=== PATIENT | male | born 1945 | race Caucasian/White ===

== ENCOUNTER 2020-08-15 10:48 | Emergency (ER) | payer MEDICARE, SELFPAY ==
[2020-08-15] VITALS (42 sets, daily range): BP systolic 157–207; BP diastolic 79–103; PULSE 35–68; RESP 11–24; TEMP 36.4; O2SAT 96–100; BMI 24.3
--- NOTE | 2020-08-15 11:20 | XR_ITS ---
WS: [id number] PORTABLE CHEST HISTORY: chest pain COMPARISON: None available. Lungs are clear and well expanded. No pleural effusion or pneumothorax. Cardiac size: Mildly enlarged cardiac silhouette. Mediastinum/Aorta: Mildly ectatic aorta. No osseous abnormality seen. XR/XR chest 1V portable [id number] IMPRESSION: Unremarkable portable chest.
--- NOTE | 2020-08-15 11:20 | ECG_ITS ---
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
[2020-08-15 11:35] LABS: Basophils # 0.1 10^3/uL (0.0-0.1); Basophils % 0.8 %; Eosinophils # 0.2 10^3/uL (0.0-0.8); Hematocrit 42.6 % (42.0-52.0); Hemoglobin 13.8 g/dL (11.7-16.6); Lymphocytes # 2.2 10^3/uL (0.8-4.8); Lymphocytes % 29.4 %; Mean Corpuscular HGB Conc 32.4 g/dL (30.0-36.0); Mean Corpuscular Hemoglobin 30.5 pg (28.0-34.0); Mean Corpuscular Volume 94.2 fL (80-94); Mean Platelet Volume 9.8 fL (7.4-10.4); Monocytes # 0.6 10^3/uL (0.2-0.9); Monocytes % 7.6 %; Neutrophils # 4.37 10^3/uL (1.8-7.7); Neutrophils % 59.1 %; Nucleated Red Blood Cells % 0 %; Platelet Count 271 10^3/cmm (130-400); Red Blood Count 4.52 10^6/uL (4.1-5.3); Red Cell Distribution Width 12.9 % (12.1-15.1); White Blood Count 7.4 10^3/uL (4.0-10.0)
[2020-08-15 11:44] LABS: INR 0.96 (0.8-1.2)
[2020-08-15 11:53] LABS: Troponin(5th) Baseline 22 ng/L (0-15)
[2020-08-15 12:00] LABS: Alanine Aminotransferase 21 U/L (0-41); Albumin Level 4.4 g/dL (3.5-5.2); Alkaline Phosphatase 76 IU/L (40-130); Anion Gap 15.4 (5-19); Aspartate Amino Transferase 18 U/L (0-40); Blood Urea Nitrogen 16 mg/dL (8-23); Calcium 9.4 mg/dL (8.5-10.5); Carbon Dioxide 25 mmol/L (22-29); Chloride 106 mmol/L (98-107); Globulin 2.6 g/dL (1.3-4.6); Glucose 110 mg/dL (65-115); Magnesium 2.3 mg/dL (1.7-2.3); NT Pro B Type Natriuretic Pept 204 pg/mL (0-450); Osmolality Calculated 296 mOsm/kg (285-295); Potassium 4.4 mmol/L (3.5-5.1); Sodium 142 mmol/L (136-145); Total Bilirubin 0.4 mg/dL (0.15-1.2)
[2020-08-15 12:11] LABS: Add Urine Microscopic? NO
[2020-08-15 12:23] LABS: Blood Urine Neg (Negative); Glucose Urine UA Norm (Normal); Ketones Urine Negative (Negative); Nitrate Urine Negative (Negative); Protein Urine Neg (Negative); Urine Appearance Clear (CLEAR); Urine Color Yellow (Yellow); pH Urine 5 (5-7)
[2020-08-15 12:24] LABS: Bilirubin Urine Neg (Negative); Leukocyte Esterase Urine Negative (Negative); Urobilinogen Urine Norm (Negative)
--- NOTE | 2020-08-15 13:20 | ECG_ITS ---
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: : 1945 Requested By: Herlinda Srinivasan Order Number: [id number] Reading MD: SARA HOPE Measurements Intervals [place] Rate: 52 P: [place]: -1 QRS: -33 QRSD: 152 T: 119 QT: 503 QTc: 469 Interpretive Statements SINUS BRADYCARDIA WITH 2ND DEGREE AV BLOCK, 2:1 OR MOBITZ TYPE II LEFT AXIS DEVIATION [QRS AXIS < -30] LEFT BUNDLE BRANCH BLOCK [120+ ms QRS DURATION, 80+ ms Q/S IN V1/V2, 85+ ms R IN I/aVL/V5/V6] CRITICAL TEST RESULT No previous ECG available for comparison Electronically Signed On 08-15-2020 18:21:54 CDT by SARA HOPE [id number]
[2020-08-15 13:58] LABS: Troponin 5 2HR 17.31 ng/L (0-15); Troponin 5 2HR Delta -4.69 ABS# (0-10)
--- NOTE | 2020-08-15 14:11 | ED_ITS ---
HPI - Chest Pain General: Chief Complaint: Chest Pain Stated Complaint: LOW HR///30'S Time Seen by Provider: 08/15/20 11:17 History of Present Illness: HPI narrative: This patient is a very pleasant 75-year-old gentleman who presents today with lightheadedness and shortness of breath for a week. He also has had some chest pain off and on. He has no prior cardiac history. He takes lisinopril for blood pressure and is otherwise quite healthy. He is pretty active outdoors. He went and saw his PCP today for a blood pressure medicine refill and mention the shortness of breath. They noted significant bradycardia which worsened with exertion. His heart rate was as low as 30 in the office. He was sent to the ER for further evaluation. In the ER he is awake and alert, joking around. He denies any pain but does say feels a little tight in his chest. He is not short of breath when sitting in the bed. He has not been sick with cough, cold, fever. He has no loss of taste or smell. He has not had any Covid exposures that he knows of. He has had 1 prior syncopal episode about 12 years ago. He was evaluated at that time and no cause was found. 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 He had a 9-hour surgery at [place] which included intraperitoneal intraoperative chemotherapy. He was told that it was not likely to recur and he did not have any further treatment. MD complaint: chest heaviness and other (Shortness of breath, lightheadedness with exertion) Onset (ago): week(s) Timing of current episode: episodic Prior episodes: Yes Onset: during exertion Pain location: left chest Pain radiation: none Quality: tightness and heaviness Exacerbating factors: exertion Associated symptoms: Reports dyspnea and syncope (Near syncope); Deny abdominal pain, fever(s), nausea or vomiting Review of Systems General: Reports: 10 or more systems reviewed and unremarkable except in HPI and below Const: Reports: fatigue and malaise; Denies: fever(s) or chills Eyes: Denies: change in vision ENMT: Denies: odynophagia Card: Reports: syncope (Near syncope) Resp: Reports: dyspnea GI: Denies: abdominal pain, nausea or vomiting : Denies: flank pain Musc: Denies: neck pain or back pain Skin/Breast: Denies: rash Neuro: Denies: headache(s), numbness in extremities or weakness in extremities Willis/Lymph: Denies: easy bruising or easy bleeding PFS ED PFSH: Medical History Essential hypertension Social History Smoking and tobacco status: never smoked Alcohol intake: never Adopted: No Caregiver/support person: No Lives independently: No Household members: spouse Marital status: History of recent travel: No Sexually active: Yes Current gender identity: Male Physical Exam Const: COMMON NORMALS: no acute distress, patient oriented x3, no limitations and alert GENERAL APPEARANCE: cooperative and comfortable HENMT: HEAD & SCALP: normal to inspection FACE & SINUS: normal facial exam Eye: GENERAL EYE: appearance normal, both eyes and all related structures Neck/C-Spine: COMMON NORMALS: supple, no meningeal signs and no JVD Chest: COMMONS NORMALS: normal inspection of the chest Resp: COMMON NORMALS: normal respiratory effort, No use of accessory muscles and clear to auscultation bilaterally AUSCULTATION: clear to auscultation bilaterally Cardio: COMMON NORMALS: no JVD and No murmurs present (Cardio) RATE: bradycardic RHYTHM: abnormal rhythm GI: COMMON NORMALS: Normal to inspection, nondistended, normoactive bowel sounds present, Soft to palpation and non-tender INSPECTION: Yes normal to inspection (Large laparotomy scar well-healed) AUSCULTATION: Yes normoactive bowel sounds PALPATION: Yes Soft to palpation Back/Pelvis: COMMON NORMALS: thoracic and lumbar spine normal to inspection Extremity: COMMON NORMALS: normal to inspection Neuro: COMMON NORMALS: patient oriented x3, moves all extremities, no focal motor deficits and no sensory deficits noted SENSORIUM/ORIENTATION: Yes alert MENINGEAL SIGNS: Yes no meningeal signs Psych: COMMON NORMALS: mental status grossly normal, cooperative and normal affect Skin: COMMON NORMALS: no rashes or lesions noted and turgor normal GENERAL SKIN EXAM: no rashes or lesions noted and turgor normal Course ED course: This patient was fairly asymptomatic in the ER but did have some significant pauses on his monitor as well as several episodes of his heart rate getting down into the 30s. I was talking with him at the time of 1 of these episodes of bradycardia and he seemed completely unaffected by it. It was a brief episode and within a minute had gotten back up to 60. I spoke with Dr. Bingham here and he agreed with further evaluation, however we do not have a bed to admit the patient into. He is okay with going to [place] and prefers [facility]. I am waiting to speak to a doctor there but it sounds like they will have a bed for him. His labs are unremarkable. His troponin is negative. His first EKG showed a first-degree AV block. His second EKG was more concerning for possible second-degree AV block. He has quite a wide complex and a bundle branch block which is not known whether it is new or not. Reevaluation(s): Reevaluation #1: Patient continues to feel okay as long as he sitting in the bed. I spoke with the nurse practitioner for Dr. Edwards at [facility] in [place] and they have accepted the patient for transfer there. Reevaluation #2: Patient is still waiting for a bed at [facility] and transportation. He remains in unchanged condition and in good spirits. Vital Signs: Vital signs: Vital Signs Temperature 97.6 F 08/15/20 11:06 Pulse Rate 64 08/15/20 17:20 Respiratory Rate 19 H 08/15/20 17:20 Blood Pressure 187/96 08/15/20 17:20 Pulse Oximetry 99 08/15/20 17:20 MDM - Chest Pain Lab Data: Labs: Lab Results 08/15/20 08/15/20 08/15/20 Range/Units 11:15 11:15 11:15 WBC 7.4 (4.0-10.0) 10^3/ uL RBC 4.52 (4.1-5.3) 10^6/u L Hgb 13.8 (11.7-16.6) g/dL Hct 42.6 (42.0-52.0) % MCV 94.2 H (80-94) fL MCH 30.5 (28.0-34.0) pg MCHC 32.4 (30.0-36.0) g/dL RDW 12.9 (12.1-15.1) % Plt Count 271 (130-400) 10^3/c mm MPV 9.8 (7.4-10.4) fL Neut % (Auto) 59.1 % Lymph % (Auto) 29.4 % [place] % (Auto) 7.6 % Eos % (Auto) 3.0 % Baso % (Auto) 0.8 % Neut # (Auto) 4.37 (1.8-7.7) 10^3/u L Lymph # (Auto) 2.2 (0.8-4.8) 10^3/u L [place] # (Auto) 0.6 (0.2-0.9) 10^3/u L Eos # (Auto) 0.2 (0.0-0.8) 10^3/u L Baso # (Auto) 0.1 (0.0-0.1) 10^3/u L Nucleated RBC % (a uto) 0 % Nucleated RBCs # 0.0 /100WBC PT (12.1-14.9) SECO NDS INR (0.8-1.2) Sodium 142 (136-145) mmol/L Potassium 4.4 (3.5-5.1) mmol/L Chloride 106 (98-107) mmol/L Carbon Dioxide 25 (22-29) mmol/L Anion Gap 15.4 (5-19) BUN 16 (8-23) mg/dL Creatinine 1.0 (0.7-1.2) mg/dL GFR Calculation Not Reportable Glucose 110 (65-115) mg/dL Calculated Osmolal ity 296 H (285-295) mOsm/k g Calcium 9.4 (8.5-10.5) mg/dL Magnesium 2.3 (1.7-2.3) mg/dL Total Bilirubin 0.4 (0.15-1.2) mg/dL AST 18 (0-40) U/L ALT 21 (0-41) U/L Alkaline Phosphata se 76 (40-130) IU/L Troponin T Baselin e 22 H (0-15) ng/L Troponin T 120 Min [place] (0-15) ng/L Delta Troponin T (0-10) ABS# NT-Pro-B Natriuret Pep 204 (0-450) pg/mL Total Protein 7.0 (6.6-8.7) g/dL Albumin 4.4 (3.5-5.2) g/dL Globulin 2.6 (1.3-4.6) g/dL Urine Color (Yellow) Urine Appearance (CLEAR) Urine pH (5-7) Ur Specific Gravit y (1.005-1.030) Urine Protein (Negative) Urine Glucose (UA) (Normal) Urine Ketones (Negative) Urine Blood (Negative) Urine Nitrate (Negative) Urine Bilirubin (Negative) Urine Urobilinogen (Negative) mg/dL Ur Leukocyte Leatha ase (Negative) 08/15/20 08/15/20 08/15/20 Range/Units 11:15 11:58 13:20 WBC (4.0-10.0) 10^3/ uL RBC (4.1-5.3) 10^6/u L Hgb (11.7-16.6) g/dL Hct (42.0-52.0) % MCV (80-94) fL MCH (28.0-34.0) pg MCHC (30.0-36.0) g/dL RDW (12.1-15.1) % Plt Count (130-400) 10^3/c mm MPV (7.4-10.4) fL Neut % (Auto) % Lymph % (Auto) % [place] % (Auto) % Eos % (Auto) % Baso % (Auto) % Neut # (Auto) (1.8-7.7) 10^3/u L Lymph # (Auto) (0.8-4.8) 10^3/u L [place] # (Auto) (0.2-0.9) 10^3/u L Eos # (Auto) (0.0-0.8) 10^3/u L Baso # (Auto) (0.0-0.1) 10^3/u L Nucleated RBC % (a uto) % Nucleated RBCs # /100WBC PT 13.10 (12.1-14.9) SECO NDS INR 0.96 (0.8-1.2) Sodium (136-145) mmol/L Potassium (3.5-5.1) mmol/L Chloride (98-107) mmol/L Carbon Dioxide (22-29) mmol/L Anion Gap (5-19) BUN (8-23) mg/dL Creatinine (0.7-1.2) mg/dL GFR Calculation Glucose (65-115) mg/dL Calculated Osmolal ity (285-295) mOsm/k g Calcium (8.5-10.5) mg/dL Magnesium (1.7-2.3) mg/dL Total Bilirubin (0.15-1.2) mg/dL AST (0-40) U/L ALT (0-41) U/L Alkaline Phosphata se (40-130) IU/L Troponin T Baselin e (0-15) ng/L Troponin T 120 Min [place] 17.31 H (0-15) ng/L Delta Troponin T -4.69 L (0-10) ABS# NT-Pro-B Natriuret Pep (0-450) pg/mL Total Protein (6.6-8.7) g/dL Albumin (3.5-5.2) g/dL Globulin (1.3-4.6) g/dL Urine Color Yellow (Yellow) Urine Appearance Clear (CLEAR) Urine pH 5 (5-7) Ur Specific Gravit y 1.010 (1.005-1.030) Urine Protein Neg (Negative) Urine Glucose (UA) Norm (Normal) Urine Ketones Negative (Negative) Urine Blood Neg (Negative) Urine Nitrate Negative (Negative) Urine Bilirubin Neg (Negative) Urine Urobilinogen Norm (Negative) mg/dL Ur Leukocyte Leatha ase Negative (Negative) Discharge Plan Discharge Patient Disposition: Xfer Short-Term Hosp Clinical Impression: Bradycardia, Heart block bundle branch, Atrioventricular block, second degree Condition: Stable Referrals: Jaguar Reynolds FNP [Primary Care Provider] - Coding Level of Care Code ED Milk Bottler for Chg Fwd Exam Comprehensive
--- NOTE | 2020-08-15 17:20 | ECG_ITS ---
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
== END 2020-08-15 18:10 | disposition short-term general hospital (02) ==
PROVIDERS: Emergency Provider Emergency Medicine; Family Provider Nurse Practitioner Family; PCP Nurse Practitioner Family
DX: I44.1 Atrioventricular block, second degree (principal); R00.1 Bradycardia, unspecified; I10 Essential (primary) hypertension
CPT/HCPCS: 12345; 71045; 80053; 81003; 83735; 83880; 84484; 85025; 85610; 93005; 99284

== ENCOUNTER → 2020-09-02 11:24 | Outpatient (BNVA) | payer MEDICARE, SELFPAY | PROVIDERS: Family Provider Nurse Practitioner Family; PCP Nurse Practitioner Family; Visit Provider Registered Nurse | DX: T81.41XA Infection following a procedure, superficial incisional surgical site, initial encounter (principal); I10 Essential (primary) hypertension | CPT/HCPCS: 87070 ==

== ENCOUNTER → 2021-03-26 00:01 | Outpatient (BNVA) | payer MEDICARE, SELFPAY | PROVIDERS: Family Provider Nurse Practitioner Family; PCP Nurse Practitioner Family; Visit Provider Registered Nurse | DX: I44.7 Left bundle-branch block, unspecified (principal); I45.4 Nonspecific intraventricular block; I25.10 Atherosclerotic heart disease of native coronary artery without angina pectoris; I50.30 Unspecified diastolic (congestive) heart failure; Z95.0 Presence of cardiac pacemaker; Z95.1 Presence of aortocoronary bypass graft; I10 Essential (primary) hypertension; R00.1 Bradycardia, unspecified | CPT/HCPCS: 80048; 83735; 83880; 85025 ==

== ENCOUNTER → 2021-05-18 08:54 | Outpatient (BNVA) | payer MEDICARE, SELFPAY | PROVIDERS: Family Provider Nurse Practitioner Family; PCP Registered Nurse; Visit Provider Registered Nurse | DX: K21.9 Gastro-esophageal reflux disease without esophagitis (principal); G47.00 Insomnia, unspecified; E78.5 Hyperlipidemia, unspecified; I50.9 Heart failure, unspecified | CPT/HCPCS: 80061; 83880 ==

== ENCOUNTER → 2021-09-09 00:01 | Outpatient (BNVA) | payer MEDICARE, SELFPAY | PROVIDERS: Family Provider Nurse Practitioner Family; PCP Registered Nurse; Visit Provider Registered Nurse | DX: I10 Essential (primary) hypertension (principal); E78.5 Hyperlipidemia, unspecified; I50.9 Heart failure, unspecified; Z95.1 Presence of aortocoronary bypass graft | CPT/HCPCS: 80053; 80061; 83880; 85025 ==

== ENCOUNTER → 2022-01-27 13:13 | Outpatient (BNVA) | payer MEDICARE, SELFPAY | PROVIDERS: Family Provider Nurse Practitioner Family; PCP Registered Nurse; Visit Provider Internal Medicine | DX: I11.0 Hypertensive heart disease with heart failure (principal); I50.9 Heart failure, unspecified; Z95.0 Presence of cardiac pacemaker; Z95.1 Presence of aortocoronary bypass graft; I44.7 Left bundle-branch block, unspecified; Z87.891 Personal history of nicotine dependence; Z79.82 Long term (current) use of aspirin | CPT/HCPCS: 99204 ==

== ENCOUNTER → 2022-04-21 15:02 | Outpatient (BNVA) | payer MEDICARE, SELFPAY | PROVIDERS: PCP Registered Nurse; Visit Provider Internal Medicine | DX: I11.0 Hypertensive heart disease with heart failure (principal); I50.9 Heart failure, unspecified; Z95.0 Presence of cardiac pacemaker; Z95.1 Presence of aortocoronary bypass graft; I44.7 Left bundle-branch block, unspecified; Z87.891 Personal history of nicotine dependence | CPT/HCPCS: 99213; 99214 ==

== ENCOUNTER → 2022-04-29 13:02 | Outpatient (BNVA) | payer MEDICARE, SELFPAY | PROVIDERS: PCP Registered Nurse; Referring Provider Registered Nurse; Visit Provider Orthopaedic Surgery | DX: M47.22 Other spondylosis with radiculopathy, cervical region (principal) | CPT/HCPCS: 72040; 99203; 99204 ==

== ENCOUNTER → 2022-10-20 14:06 | Outpatient (BNVA) | payer MEDICARE, SELFPAY | PROVIDERS: PCP Registered Nurse; Visit Provider Internal Medicine | DX: I11.0 Hypertensive heart disease with heart failure (principal); I50.9 Heart failure, unspecified; Z95.0 Presence of cardiac pacemaker; Z95.1 Presence of aortocoronary bypass graft; I44.7 Left bundle-branch block, unspecified; Z87.891 Personal history of nicotine dependence | CPT/HCPCS: 99214 ==

== ENCOUNTER → 2022-11-04 11:20 | Outpatient (BNVA) | payer MEDICARE, SELFPAY | PROVIDERS: PCP Registered Nurse; Visit Provider Nurse Practitioner Family | DX: I10 Essential (primary) hypertension (principal) | CPT/HCPCS: 80053; 85025 ==

== ENCOUNTER → 2023-06-16 13:59 | Outpatient (BNVA) | payer MEDICARE, SELFPAY | PROVIDERS: PCP Registered Nurse; Visit Provider Internal Medicine | DX: Z95.0 Presence of cardiac pacemaker (principal); I11.0 Hypertensive heart disease with heart failure; I50.9 Heart failure, unspecified; Z95.1 Presence of aortocoronary bypass graft; I44.7 Left bundle-branch block, unspecified; Z87.891 Personal history of nicotine dependence | CPT/HCPCS: 99214 ==

== ENCOUNTER → 2023-12-15 13:48 | Outpatient (BNVA) | payer MEDICARE, SELFPAY | PROVIDERS: PCP Registered Nurse; Visit Provider Internal Medicine | DX: Z95.0 Presence of cardiac pacemaker (principal); I11.0 Hypertensive heart disease with heart failure; I50.9 Heart failure, unspecified; Z95.1 Presence of aortocoronary bypass graft; I44.7 Left bundle-branch block, unspecified; Z87.891 Personal history of nicotine dependence | CPT/HCPCS: 99214 ==

== ENCOUNTER 2024-02-06 12:08 | Inpatient (IN) | payer MEDICARE, SELFPAY ==
[2024-02-06] VITALS (36 sets, daily range): BP systolic 139–186; BP diastolic 94–117; PULSE 70–103; RESP 6–31; TEMP 36.4; O2SAT 86–99; BMI 22.4; BMI 22.1
--- NOTE | 2024-02-06 12:14 | ECG_ITS ---
[facility] Test Date: 2024-02-06 Pat Name: Dar Ortega Department: Room: Gender: Male Test Preparer: : 1945 Requested By: Trish Mac Order Number: [id number] Kristina MD: Yoel Posadas M.D. Measurements Intervals [place] Rate: 110 P: 102 [place]: 259 QRS: -75 QRSD: 154 T: 106 QT: 383 QTc: 520 Interpretive Statements ELECTRONIC VENTRICULAR PACEMAKER ABNORMAL RHYTHM ECG INTERPRETATION BASED ON A DEFAULT AGE OF 40 YEARS Compared to ECG 08/15/2020 13:39:41 Sinus bradycardia no longer present Left-axis deviation no longer present Left bundle-branch block no longer present Electronically Signed On 02-06-2024 15:04:36 CDT by Yoel Posadas M.D. [id number]
--- NOTE | 2024-02-06 12:14 | XRR_ITS ---
PROCEDURE INFORMATION: Exam: XR Chest Exam date and time: 02/06/2024 12:26 PM Age: 78 years old Clinical indication: Pain; Angina pectoris; Prior surgery; Surgery date: 6+ months; Surgery type: Pacer; Additional info: Chest pain TECHNIQUE: Imaging protocol: Radiologic exam of the chest. Views: 1 view. COMPARISON: CR XR chest 1V portable [id number] 08/15/2020 11:25 AM FINDINGS: Tubes, catheters and devices: New left pacemaker projecting in satisfactory position. Lungs: New atelectasis and/or pneumonitis right lower lung. Otherwise, unremarkable. Pleural spaces: New small right pleural effusion. No left pleural effusion or pneumothorax. Heart/Mediastinum: Increased moderate cardiomegaly. Otherwise, unremarkable mediastinal contours. Bones/joints: Unchanged mild and moderate multilevel spondylosis. Otherwise, unremarkable. Other findings: New surgical changes. XR/XR chest 1V portable [id number] IMPRESSION: 1. New atelectasis and/or pneumonitis right lower lung. 2. New small right pleural effusion. 3. Increased moderate cardiomegaly.
[2024-02-06 12:59] LABS: Basophils # 0.1 10^3/uL (0.0-0.1); Basophils % 0.9 %; Eosinophils # 0.1 10^3/uL (0.0-0.8); Eosinophils % 0.9 %; Hematocrit 53.6 % (37-53); Lymphocytes # 2.2 10^3/uL (0.8-4.8); Lymphocytes % 24.9 %; Mean Corpuscular HGB Conc 32.5 g/dL (30-55); Mean Corpuscular Volume 98.5 fl (82-101); Mean Platelet Volume 10.6 fL (7.4-10.4); Monocytes # 0.7 10^3/uL (0.2-0.9); Neutrophils # 5.82 10^3/uL (1.8-7.7); Neutrophils % 65.1 %; Nucleated Red Blood Cells % 0 %; Platelet Count 214 10^3/cmm (157-399); Red Blood Count 5.44 10^6/uL (3.85-5.65); Red Cell Distribution Width 15.7 % (12.1-15.1); White Blood Count 8.93 10^3/uL (3.29-11.43)
[2024-02-06 13:16] LABS: Troponin(5th) Baseline 33 ng/L (0-15)
--- NOTE | 2024-02-06 13:17 | W.ED.CHESTPA ---
HPI - Chest Pain General: Chief Complaint: Chest Pain Stated Complaint: chest pains, sob Time Seen by Provider: 02/06/24 13:01 Source: patient Mode of arrival: ambulatory History of Present Illness: 78-year-old male presents to the emergency room with complaint of chest pain. He has had it for about the last 3 to 4 days. He has not noticed anything that exacerbates or relieves it. He does have a known history of heart disease previously had bypass about 3 years ago. No diaphoresis with that he does get some shortness of breath with that as well. 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 a abdominal surgery with omental resection this was done a few years ago he is thought to be cancer free at this point MD complaint: chest pain Onset (ago): day(s) (3-4) Timing of current episode: episodic Pain location: left chest Pain radiation: none Severity: moderate Quality: heaviness Relieving factors: nothing Exacerbating factors: nothing Associated symptoms: Reports abdominal pain; Deny diaphoresis, dyspnea, fever(s), leg edema, nausea, palpitations, sense of impending doom, syncope or vomiting Treatment prior to arrival: none Review of Systems Const: Denies: fever(s), chills or diaphoresis Card: Reports: chest pain; Denies: palpitations, syncope, dyspnea on exertion or orthopnea Resp: Denies: dyspnea GI: Reports: abdominal pain; Denies: nausea or vomiting : Denies: dysuria, urinary frequency or urinary urgency Musc: Denies: neck pain or back pain Skin/Breast: Denies: rash PFSH ED PFSH: Medical History (Updated 02/06/24 @ 13:36 by Christian Turcios DO) Pseudomyxoma peritonei History of resection Hx of nephrolithotomy with removal of calculi History of pacemaker Essential hypertension Surgical History (Updated 02/06/24 @ 13:35 by Christian Turcios DO) S/P laparotomy Omental resection for pseudomyxoma peritonei History of back surgery History of hernia repair History of cervical sympathectomy History of coronary artery bypass graft x 3 History of open heart surgery Social History Smoking and tobacco/nicotine status: former use of tobacco/nicotine Alcohol intake: never Substance/Drug Use: never Adopted: No Caregiver/support person: No Lives independently: No Household members: spouse Marital status: Sexually active: Yes Do you think of yourself as: Straight/Heterosexual Current gender identity: Male Physical Exam Const: COMMON NORMALS: no acute distress GENERAL APPEARANCE: cooperative and comfortable ORIENTATION/CONSCIOUSNESS: Yes awake, Yes oriented to person, Yes oriented to place and Yes oriented to time HENMT: COMMON NORMALS: normocephalic, atraumatic and hearing grossly normal bilaterally HEAD & SCALP: normocephalic and atraumatic Resp: COMMON NORMALS: normal respiratory effort, No retractions, No use of accessory muscles and clear to auscultation bilaterally AUSCULTATION: clear to auscultation bilaterally Cardio: COMMON NORMALS: regular rate, regular rhythm and No murmurs present (Cardio) RATE: regular rate RHYTHM: regular rhythm GI: COMMON NORMALS: No hepatosplenomegaly present AUSCULTATION: Yes normoactive bowel sounds PALPATION: Yes Tenderness to palpation present (GI) (Periumbilical), No Guarding due to palpation present (GI) and Yes No hepatosplenomegaly present Extremity: COMMON NORMALS: normal to inspection, capillary refill normal, no clubbing, cyanosis or edema, no calf tenderness and no pedal edema Neuro: SENSORIUM/ORIENTATION: Yes oriented to person, Yes oriented to place and Yes oriented to time Skin: COMMON NORMALS: no rashes or lesions noted GENERAL SKIN EXAM: no rashes or lesions noted Course Vital Signs: Vital signs: Vital Signs Pulse Rate 89 02/06/24 18:03 Respiratory Rate 18 02/06/24 18:03 Blood Pressure 163/112 02/06/24 18:03 Pulse Oximetry 98 02/06/24 18:03 Oxygen Delivery Me thod Room Air 02/06/24 18:03 MDM - Chest Pain Medical Decision Making Cardiac enzymes negative. Patient is in a paced rhythm. His T. bili is elevated transaminases slightly elevated since he did have some abdominal pain on exam CT was done showed questionable cholecystitis ultrasound confirms discussed with Dr. Kumar will admit. Given his past medical history will admit to the hospitalist consult cardiology Medical Records I reviewed the patient's medical records. Lab Data I reviewed the patient's lab results. 02/06/24 12:52 02/06/24 12:52 Radiology Impressions Chest X-Ray 02/06/24 12:14 IMPRESSION: 1. New atelectasis and/or pneumonitis right lower lung. 2. New small right pleural effusion. 3. Increased moderate cardiomegaly. Gallbladder Ultrasound 02/06/24 15:38 IMPRESSION: 1. High suspicion of acute cholecystitis. 2. Right pleural effusion. Laboratory Results WBC 8.93 10^3/uL (3.29-11.43) 02/06/24 12:52 RBC 5.44 10^6/uL (3.85-5.65) 02/06/24 12:52 Hgb 17.40 g/dL (11.27-16.99) H 02/06/24 12:52 Hct 53.6 % (37-53) H 02/06/24 12:52 MCV 98.5 fl (82-101) 02/06/24 12:52 MCH 32.0 pg (27-33) 02/06/24 12:52 MCHC 32.5 g/dL (30-55) 02/06/24 12:52 RDW 15.7 % (12.1-15.1) H 02/06/24 12:52 Plt Count 214 10^3/cmm (157-399) 02/06/24 12:52 MPV 10.6 fL (7.4-10.4) H 02/06/24 12:52 Neut % (Auto) 65.1 % 02/06/24 12:52 Lymph % (Auto) 24.9 % 02/06/24 12:52 [place] % (Auto) 8.0 % 02/06/24 12:52 Eos % (Auto) 0.9 % 02/06/24 12:52 Baso % (Auto) 0.9 % 02/06/24 12:52 Neut # (Auto) 5.82 10^3/uL (1.8-7.7) 02/06/24 12:52 Lymph # (Auto) 2.2 10^3/uL (0.8-4.8) 02/06/24 12:52 [place] # (Auto) 0.7 10^3/uL (0.2-0.9) 02/06/24 12:52 Eos # (Auto) 0.1 10^3/uL (0.0-0.8) 02/06/24 12:52 Baso # (Auto) 0.1 10^3/uL (0.0-0.1) 02/06/24 12:52 Nucleated RBC % (auto) 0 % 02/06/24 12:52 Nucleated RBCs # 0.0 /100WBC 02/06/24 12:52 Sodium 141 mmol/L (136-145) 02/06/24 12:52 Potassium 4.0 mmol/L (3.5-5.1) 02/06/24 12:52 Chloride 100 mmol/L (98-107) 02/06/24 12:52 Carbon Dioxide 27 mmol/L (22-29) 02/06/24 12:52 Anion Gap 18.0 (5-19) 02/06/24 12:52 BUN 27 mg/dL (8-23) H 02/06/24 12:52 Creatinine 1.5 mg/dL (0.7-1.2) H 02/06/24 12:52 GFR Calculation Not Reportable 02/06/24 12:52 Glucose 96 mg/dL (65-115) 02/06/24 12:52 Calculated Osmolality 297 mOsm/kg (285-295) H 02/06/24 12:52 Calcium 10.0 mg/dL (8.5-10.5) 02/06/24 12:52 Total Bilirubin 1.6 mg/dL (0.15-1.2) H 02/06/24 12:52 AST 36 U/L (0-40) 02/06/24 12:52 ALT 23 U/L (0-41) 02/06/24 12:52 Alkaline Phosphatase 154 U/L (40-130) H 02/06/24 12:52 Troponin T Baseline 33 ng/L (0-15) H 02/06/24 12:52 Troponin T 120 Minute 34.16 ng/L (0-15) H 02/06/24 15:10 Delta Troponin T 1.16 ABS# (0-10) 02/06/24 15:10 NT-Pro-B Natriuret Pep 24962 pg/mL (0-450) H 02/06/24 12:52 Total Protein 7.5 g/dL (6.6-8.7) 02/06/24 12:52 Albumin 4.1 g/dL (3.5-5.2) 02/06/24 12:52 Globulin 3.4 g/dL (1.3-4.6) 02/06/24 12:52 All radiology interpretation(s) finalized by discharge Discharge Plan Discharge Admit Provider: Mani Agrawal Condition: Stable Prescriptions: No Action spironolactone 25 mg tablet 12.5 mg PO DAILY nitroglycerin 0.4 mg tablet, sublingual 0.4 mg sublingual Q5M PRN (Reason: chest pain) Qty: 20 0RF Rx Instructions: do not exceed 3 doses per episode tramadol 50 mg tablet 50 mg PO BID PRN (Reason: pain) 7 Days Qty: 14 0RF furosemide 40 mg tablet 20 mg PO DAILY PRN (Reason: Edema) trazodone 50 mg tablet 50 mg PO BEDTIME PRN (Reason: Sleep) metoprolol succinate 50 mg tablet extended release 24 hr 50 mg PO DAILY mirtazapine 15 mg tablet 15 mg PO DAILY tizanidine 4 mg capsule 4 mg PO DAILY Coding Level of Care Code ED Entry Level Sales Representative for Keyona Tamez
[2024-02-06 13:24] LABS: Alanine Aminotransferase 23 U/L (0-41); Albumin Level 4.1 g/dL (3.5-5.2); Alkaline Phosphatase 154 U/L (40-130); Aspartate Amino Transferase 36 U/L (0-40); Blood Urea Nitrogen 27 mg/dL (8-23); Carbon Dioxide 27 mmol/L (22-29); Chloride 100 mmol/L (98-107); Creatinine Clr Calc Pharmacy 43.7691; Globulin 3.4 g/dL (1.3-4.6); Glucose 96 mg/dL (65-115); NT Pro B Type Natriuretic Pept 11666 pg/mL (0-450); Osmolality Calculated 297 mOsm/kg (285-295); Sodium 141 mmol/L (136-145); Total Bilirubin 1.6 mg/dL (0.15-1.2); Total Protein 7.5 g/dL (6.6-8.7)
--- NOTE | 2024-02-06 13:36 | CT_ITS ---
WS: [id number] CT ABDOMEN AND PELVIS WITH CONTRAST HISTORY: abd pain, history of stomach cancer. TECHNIQUE: Imaging performed of the abdomen and pelvis with IV contrast. Single phase imaging of the abdomen. Coronal and sagittal reformats are submitted. All CT scans at [facility] use at [address] one of these dose optimization techniques: automated exposure control; mA and/or kV adjustment per patient size (includes targeted exams where dose is matched to clinical indication); or iterative re construction. IV CONTRAST: Omnipaque 350; 100 mL IV. Oral contrast: No DLP: 435.79 mGy.cm COMPARISON: None available. Lower thorax: 5 mm noncalcified nodule at the LEFT lung base. There is an additional 2 mm nodule LEFT lower lobe. Very small bilateral pleural effusions. Moderately enlarged heart. No hiatal hernia. Liver/biliary system: Tricuspid regurgitation into the hepatic veins. No liver masses identified. Gallbladder: Stones in the neck of the gallbladder. There is mild pericholecystic fluid and stranding . Gallbladder is not hydropic. Common bile duct is not dilated. Pancreas: Normal size pancreas and pancreatic duct. No adjacent inflammation. Spleen: Normal size spleen. No mass or infarct. Adrenal glands: Normal. Right kidney: Mild perinephric stranding. No obstruction. 11 mm cortical cyst mid kidney. Left kidney: Perinephric stranding with no obstruction. Mild cortical thinning. Aorta: Mild atherosclerosis with no aneurysm. Lymphadenopathy: None. Free fluid: There is some very mild mesenteric edema. Tiny amount of fluid along the paracolic gutte rs. GI tract: Normally distended stomach. No small bowel obstruction. Anastomotic sutures in the RIGHT co babatunde. Additional surgical anastomotic site in the sigmoid colon. Abdominal wall: Unremarkable abdominal wall. No hernia. Pelvis: Well-distended urinary bladder. No free fluid. Bones: Advanced facet joint arthritis in the lumbar spine. IMPRESSION: 1. Cholelithiasis with adjacent pericholecystic stranding. Nondilated gallbladder. No bile duct dila tation. Correlate for acute cholecystitis. 2. Tricuspid regurgitation into the hepatic veins. 3. Bilateral perinephric stranding with no obstruction. This may be chronic or related to acute pyel onephritis. 4. Small bilateral pleural effusions, RIGHT greater than LEFT. 5. Surgical anastomotic sutures in the colon are stable. 6. Small amount of ascites along the paracolic gutters.
[2024-02-06] MEDS: sodium chloride 0.9% 500 ML IV (13:54)
[2024-02-06] MEDS: iohexol 350 mg/mL 500 mL Btl (per mL) IV (14:06)
--- NOTE | 2024-02-06 14:14 | ECG_ITS ---
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 Measurements Intervals [place] Rate: 83 P: 0 ND: 0 QRS: -79 QRSD: 135 T: -48 QT: 409 QTc: 482 Interpretive Statements ATRIAL FIBRILLATION RIGHT BUNDLE BRANCH BLOCK [120+ ms QRS DURATION, UPRIGHT V1, 40+ ms S IN I/aVL/V4/V5/V6] LEFT ANTERIOR FASCICULAR BLOCK [QRS AXIS <= -45, QR IN I, RS IN II] MODERATE T-WAVE ABNORMALITY, CONSIDER LATERAL ISCHEMIA [-0.1+ mV T-WAVE IN I/aVL/V5/V6] Compared to ECG 02/06/2024 12:15:52 Right bundle-branch block now present Left anterior fascicular block now present T-wave abnormality now present Possible ischemia now present Ventricular-paced complex(es) or rhythm no longer present Electronically Signed On 02-06-2024 15:08:17 CDT by Yoel Posadas M.D. [id number]
[2024-02-06 15:35] LABS: Troponin 5 2HR 34.16 ng/L (0-15); Troponin 5 2HR Delta 1.16 ABS# (0-10)
--- NOTE | 2024-02-06 15:38 | USR_ITS ---
PROCEDURE INFORMATION: Exam: US Abdomen, Limited; Right Upper Quadrant Exam date and time: 02/06/2024 4:02 PM Age: 78 years old Clinical indication: Other: Labs; Additional info: Elevated t bili TECHNIQUE: Imaging protocol: Real time ultrasound of the abdomen with image documentation. Limited exam focused on the right upper quadrant. COMPARISON: CT abdomen pelvis w con* [id number] 02/06/2024 1:58 PM FINDINGS: Pleural spaces: Right pleural effusion. Liver: Normal. No masses. Gallbladder: Distended gallbladder with gallbladder wall thickening measuring 4 mm. Gallstones in the gallbladder. Acute cholecystitis should be suspected. Biliary ducts: Normal. No stones. No dilation. Pancreas: Visualized pancreas is unremarkable. Right kidney: Normal. No mass. No hydronephrosis. Aorta: Unremarkable abdominal aorta. Inferior vena cava: Unremarkable IVC. Portal venous: Normal hepatopetal flow in the portal vein. US/US gall bladder [id number] IMPRESSION: 1. High suspicion of acute cholecystitis. 2. Right pleural effusion.
[2024-02-06] MEDS: piperacillin-tazobactam 3.375 GM in sodium chloride 0.9% (plus) 50 ML IV (18:02)
--- NOTE | 2024-02-06 18:09 | ECG_ITS ---
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 Measurements Intervals [place] Rate: 83 P: 0 HI: 0 QRS: -75 QRSD: 156 T: 102 QT: 453 QTc: 534 Interpretive Statements ELECTRONIC VENTRICULAR PACEMAKER ABNORMAL RHYTHM ECG Compared to ECG 02/06/2024 14:15:57 Possible atrial fibrillation Right bundle-branch block no longer present Left anterior fascicular block no longer present T-wave abnormality no longer present Possible ischemia no longer present Electronically Signed On 02-07-2024 21:45:54 CDT by Yudith Redmond M.D. [id number]
--- NOTE | 2024-02-06 18:26 | USCV_ITS ---
Dar Ortega Age: 78 Gender: M : 1945 Exam Date: 02/06/2024 21:12 Ordering Phys: Mani Agrawal MD Technologist: DENISE Exam Location: [facility] Indication: chest pain. s/p CABG 2019, s/p pacer 2017 BP: 163 / 112 HR: 79 Rhythm: Paced Technical Quality: Adequate MEASUREMENTS (Male / Female) Normal Values 2D ECHO LV Diastolic Diameter PLAX 4.7 cm 4.2 - 5.9 / 3.9 - 5.3 cm IVS Diastolic Thickness 1.6 cm 0.6 - 1.0 / 0.6 - 0.9 cm IVS Systolic Thickness 1.9 cm LVPW Diastolic Thickness 1.5 cm 0.6 - 1.0 / 0.6 - 0.9 cm LVPW Systolic Thickness 1.8 cm LVOT Diameter 2.2 cm LV Ejection Fraction 2D Teich 38.1 % LV Ejection Fraction MOD 2C 45.8 % LV Ejection Fraction 2C AL 48.4 % LA Diameter 4.8 cm LA Sys Volume AL 114.2 cm cubed LA Sys Volume Index AL 57.4 cm cubed/m squared Aorta at Sinotubular Diameter 3.6 cm IVC Diameter 2.3 cm M-MODE LA Ao Ratio MM 1.1 AV Cusp Separation MM 1.0 cm DOPPLER AV Peak Velocity 139.0 cm/s LVOT Peak Velocity 29.0 cm/s AV Area Cont Eq vti 0.9 cm squared AV Area Cont Eq pk 0.8 cm squared MV Peak Velocity 79.0 cm/s MV Area PHT 2.6 cm squared Mitral E to A Ratio 0.0 TV Peak Velocity 193.3 cm/s TR Peak Velocity 204.0 cm/s TR Peak Gradient 16.6 mmHg TV Peak E Velocity 42.0 cm/s Right Atrial Pressure 10.0 mmHg Pulmonary Artery Systolic Pressu 26.6 mmHg PV Peak Velocity 69.0 cm/s FINDINGS Left Ventricle Severe diffuse hypokinesis of the left ventricular ejection fraction of 22%. Moderate concentric left-ventricular hypertrophy Right Ventricle Normal RV size and ejection fraction Right Atrium Moderate to severely atrium. Increased right atrial size. Left Atrium Moderately dilated left atrium with an end-systolic volume index of 57 mL/m squared Mitral Valve Mild-moderate mitral valve regurgitation. Aortic Valve [id number] aortic valve regurgitation. Tricuspid Valve Moderate tricuspid valve regurgitation. Estimated pulmonary artery peak systolic pressure 27 mmHg Pulmonic Valve Moderate pulmonary valve regurgitation. Pericardium No pericardial effusion. Aorta Normal aortic annulus size. IVC Normal IVC dimension with <50% respiratory change of the inferior vena cava. CONCLUSIONS Severe diffuse hypokinesis of the left ventricular ejection fraction of 22%. Moderate concentric left-ventricular hypertrophy. Normal RV size and ejection fraction. Moderate to severely atrium. Increased right atrial size. Moderately dilated left atrium with an end-systolic volume index of 57 mL/m squared. Mild-moderate mitral valve regurgitation. Ewig-ga-[id number] aortic valve regurgitation. Moderate tricuspid valve regurgitation. Estimated pulmonary artery peak systolic pressure 27 mmHg. Moderate pulmonary valve regurgitation. There is no pericardial effusion. There are no intracardiac masses. No similar previous studies are available for comparison Dr Yudith Redmond MD [facility] (Electronically Signed) Final Date: 07 February 2024 09:06 S
--- NOTE | 2024-02-06 18:31 | P.HP_ITS ---
Providers/Chief Complaint 2 Admitting Physician: Mani Agrawal MD Primary Care Provider: LILIANA Hinkle Chief Complaint: chest pains, sob History of Present Illness Dar Ortega is a 78 year old male with a past medical history of pacemaker placement, plans on possible ICD placement in the near future, history of CABG x 3, history of systolic CHF EF of 45%, history of pseudomyxoma peritonei, status status post surgical resection, radiation, who presents [facility] due to a few months history of shortness of breath, chest pain, epigastric discomfort. Patient tells me that over the last few months, he is felt increasing shortness of breath, increased shortness of breath with exertion, orthopnea, paroxysmal nocturnal dyspnea, he tells me that what prompted him to come to the hospital is that he was having now chest discomfort anterior chest discomfort, with his shortness of breath, nonradiating, no lightness, dizziness, no diaphoresis, he has never experienced chest pain like this before, he also had complaints of epigastric discomfort, currently alert and oriented x 4, following all commands, family numbers at bedside, also tells me that he has never had a history of GERD, but recently has been complaining of epigastric discomfort, acid reflux which is unusual for him Review of Systems 2 Const: Denies: fever(s) Card: Reports: chest pain Resp: Reports: dyspnea GI: Reports: abdominal pain : Denies: flank pain Neuro: Denies: headache(s) Medications/Allergies Home Medications Medication Instructions Recorded Confirmed Last Taken Type tramadol 50 mg tablet 50 mg PO BID PRN pain 7 days #14 03/26/22 02/06/24 02/06/24 Rx tabs nitroglycerin 0.4 mg sublingual 0.4 mg sublingual Q5M PRN chest 04/12/23 02/06/24 02/05/24 Rx tablet pain #20 tabs spironolactone 25 mg tablet 12.5 mg PO DAILY 06/16/23 02/06/24 02/06/24 History furosemide 40 mg tablet 20 mg PO DAILY PRN Edema 02/06/24 02/06/24 Unknown History metoprolol succinate 50 mg 50 mg PO DAILY 02/06/24 02/06/24 02/06/24 History tablet,extended release 24 hr mirtazapine 15 mg tablet 15 mg PO DAILY 02/06/24 02/06/24 02/06/24 History tizanidine 4 mg capsule 4 mg PO DAILY 02/06/24 02/06/24 02/06/24 History trazodone 50 mg tablet 50 mg PO BEDTIME PRN Sleep 02/06/24 02/06/24 Unknown History Allergies Allergy/AdvReac Type Severity Reaction Status Date / Time meperidine [From Demerol] Allergy Intermediate UNK Verified 02/06/24 12:21 povidone-iodine Allergy Unknown Verified 02/06/24 12:21 [From Betadine] soap [From Betadine] Allergy Unknown Verified 02/06/24 12:21 PFSH Acute 2 PFSH: Medical History Pseudomyxoma peritonei History of resection Hx of nephrolithotomy with removal of calculi History of pacemaker Essential hypertension Surgical History S/P laparotomy Omental resection for pseudomyxoma peritonei History of back surgery History of hernia repair History of cervical sympathectomy History of coronary artery bypass graft x 3 History of open heart surgery Social History Smoking and tobacco/nicotine status: former use of tobacco/nicotine Alcohol intake: never Substance/Drug Use: never Adopted: No Caregiver/support person: No Lives independently: No Household members: spouse Marital status: Sexually active: Yes Do you think of yourself as: Straight/Heterosexual Current gender identity: Male Vitals/I&O/Wt Last Vital Signs Pulse 89 02/06/24 18:03 Resp 18 02/06/24 18:03 BP 163/112 02/06/24 18:03 Pulse Ox 98 02/06/24 18:03 O2 Del Method Room Air 02/06/24 18:03 02/06/24 02/06/24 02/06/24 06:59 14:59 22:59 Intake Total 500 / 500 Balance 500 / 500 Weight last 48 hrs Weight 77.111 kg Physical Exam 2 Const: COMMON NORMALS: no acute distress and patient oriented x3 HENMT: COMMON NORMALS: normocephalic HEAD & SCALP: normocephalic Eye: COMMON NORMALS: Equal, round and reactive pupils present Neck/C-Spine: COMMON NORMALS: no JVD Lymph: LYMPHATIC: no lymphadenopathy noted Resp: COMMON NORMALS: normal respiratory effort, No retractions, No use of accessory muscles and clear to auscultation bilaterally AUSCULTATION: c rackles Cardio: COMMON NORMALS: no JVD, regular rate, regular rhythm, S1 normal heart sound present and S2 normal heart sound present RATE: regular rate RHYTHM: regular rhythm HEART SOUNDS: S1 normal heart sound present and S2 normal heart sound present GI: OTHER: Abdomen soft, slightly distended, no guarding, no rebound, rigidity does have right upper quadrant tenderness Extremity: COMMON NORMALS: no pedal edema Neuro: COMMON NORMALS: patient oriented x3, CN's II-XII intact bilaterally and moves all extremities Psych: COMMON NORMALS: mental status grossly normal Data 02/06/24 12:52 02/06/24 12:52 A&P Assessment and plan (1) Chest pain: (2) CHF exacerbation: (3) Nonsustained ventricular tachycardia: (4) History of coronary artery bypass graft x 3: (5) Bundle branch block, left: (6) History of pacemaker: (7) GERD (gastroesophageal reflux disease): (8) Acute cholecystitis: Plan Chest pain ? Sounds cardiac in nature ? Has a history of CABG x 3 ?Initial troponin 33, with a 120-minute of 34.6 down to 1.16, EKG no acute ST-T wave changes ? Plan ? Aspirin 325 ? Atorvastatin, ? Continue home beta-yamilex ? Nitro as needed for chest pain ? Stat cardiac echocardiogram ? Started on heparin drip ? Full code ? Heparin drip for DVT prophylaxis Nonsustained V. tach ? Initial EKG shows ventricular paced rhythm, During my initial discussion with patient, at times during my interview, patient would have episodes of nonsustained V. tach, at other times it would look like A-fib, heart rates as high as 120s Nonsustained V. tach, the most amount of beats that I counted was 20 beats of nonsustained V. tach ? He denies any chest pain, no palpitations currently -Patient has been in talks with cardiology about placing a ICD for abnormal rhythm -Review of his pacemaker check he has had a couple episodes of nonsustained V. tach over the last few years, last episode I can see is in November ? Potassium within normal limits, magnesium levels pending ? Spoke to cardiology, Dr. Redmond will consult ? Will place on amiodarone drip for now ? Interrogate pacemaker Shortness of breath -Concerning for CHF exacerbation given patient's symptomatology elevated BNP over 11,000 -1 dose IV push Lasix 40 mg -Monitor clinically -Creatinine is 1.5 monitor potassium monitor magnesium Epigastric discomfort, acid reflux Gallbladder ultrasound ?Gallbladder: Distended gallbladder with gallbladder wall thickening measuring 4 mm. Gallstones in the gallbladder. Acute cholecystitis should be suspected. ? Plan ? Will start patient on Zosyn, keep n.p.o., hold off on IV fluids History of CABG History of CHF last EF was 45% History of pseudomyxoma peritonei status post surgery Patient is full code Heparin drip for DVT prophylaxis ? Monitor in ICU given nonsustained V. tach episode chest pain shortness of breath Attestations 2 Medical Necessity Statement*: Patient requires hospitalization inpatient, greater than 2 midnights, due to nonsustained V. tach, chest pain, shortness of breath, acute cholecystitis Diagnoses Chest pain R07.9 CHF exacerbation I50.9 Nonsustained ventricular tachycardia I47.29 History of coronary artery bypass graft x 3 Z95.1 Bundle branch block, left I44.7 History of pacemaker Z95.0 GERD (gastroesophageal reflux disease) K21.9 Acute cholecystitis K81.0
[2024-02-06] MEDS: heparin drip 25,000 UNIT/500 ML PREMIX 21.5899999999999999 UNIT IV (19:37)
[2024-02-06] MEDS: pantoprazole 40 mg SDV IVP (19:38)
[2024-02-06] MEDS: FUROsemide 10 mg/mL SDV 4mL 40 MG IVP (19:38)
[2024-02-06] MEDS: aspirin 325 mg EC Tablet PO (19:38)
--- NOTE | 2024-02-06 19:59 | P.CONIM_ITS ---
Providers/Reason For Consult 2 Consulting Physician/Specialty*: General surgery Reason for Consult*: Cholecystitis Attending Physician: Mani Agrawal MD Primary Care Provider: LILIANA Hinkle History of Present Illness History of Present Illness Dar Ortega is a 78 year old male who presented to the hospital with shortness of breath and chest pain. Patient has history of congestive heart failure and triple bypass. Per patient report he decided to present to the hospital as he has been experiencing exertional chest pain which worsens with any kind of activity and subsides with rest, in addition he has been complaining of worsening shortness of breath. Workup in the emergency department showed evidence of a proBNP of 11 K, EKG showing some nonspecific ST changes and mild elevation of the troponin. Workup also included a LFTs which show evidence of a 1.6 bilirubin and slight elevation of the alk phos and therefore CT scan of the abdominal pelvis was obtained which show evidence of a mild gallbladder wall thickening and it was followed with an ultrasound of the right upper quadrant which showed gallbladder wall thickening but no evidence of Kwan sign and was read as possible acute cholecystitis. On my evaluation patient does not complain of any abdominal pain, no nausea no vomiting. Review of Systems 2 Narrative: 10 point review of systems done negative otherwise noted in HPI Medications/Allergies Home Medications Medication Instructions Recorded Confirmed Last Taken Type tramadol 50 mg tablet 50 mg PO BID PRN pain 7 days #14 03/26/22 02/06/24 02/06/24 Rx tabs nitroglycerin 0.4 mg sublingual 0.4 mg sublingual Q5M PRN chest 04/12/23 02/06/24 02/05/24 Rx tablet pain #20 tabs spironolactone 25 mg tablet 12.5 mg PO DAILY 06/16/23 02/06/24 02/06/24 History furosemide 40 mg tablet 20 mg PO DAILY PRN Edema 02/06/24 02/06/24 Unknown History metoprolol succinate 50 mg 50 mg PO DAILY 02/06/24 02/06/24 02/06/24 History tablet,extended release 24 hr mirtazapine 15 mg tablet 15 mg PO DAILY 02/06/24 02/06/24 02/06/24 History tizanidine 4 mg capsule 4 mg PO DAILY 02/06/24 02/06/24 02/06/24 History trazodone 50 mg tablet 50 mg PO BEDTIME PRN Sleep 02/06/24 02/06/24 Unknown History Allergies Allergy/AdvReac Type Severity Reaction Status Date / Time meperidine [From Demerol] Allergy Intermediate UNK Verified 02/06/24 12:21 povidone-iodine Allergy Unknown Verified 02/06/24 12:21 [From Betadine] soap [From Betadine] Allergy Unknown Verified 02/06/24 12:21 PFSH Acute 2 PFSH: Medical History Pseudomyxoma peritonei History of resection Hx of nephrolithotomy with removal of calculi History of pacemaker Essential hypertension Surgical History S/P laparotomy Omental resection for pseudomyxoma peritonei History of back surgery History of hernia repair History of cervical sympathectomy History of coronary artery bypass graft x 3 History of open heart surgery Social History Smoking and tobacco/nicotine status: former use of tobacco/nicotine Alcohol intake: never Substance/Drug Use: never Adopted: No Caregiver/support person: No Lives independently: No Household members: spouse Marital status: Sexually active: Yes Do you think of yourself as: Straight/Heterosexual Current gender identity: Male Vitals/I&O/Wt Last Vital Signs Pulse 89 02/06/24 18:03 Resp 18 02/06/24 18:03 BP 163/112 02/06/24 18:03 Pulse Ox 98 02/06/24 18:03 O2 Del Method Room Air 02/06/24 18:03 02/06/24 02/06/24 02/06/24 06:59 14:59 22:59 Intake Total 550 / 550 Balance 550 / 550 Weight last 48 hrs Weight 170 lb Physical Exam 2 GI: OTHER: Abdomen is soft, nontender, nondistended. Patient has a laparotomy incision that is well-healed. Data 02/06/24 12:52 02/06/24 12:52 A&P Assessment and plan (1) Acute cholecystitis: (2) CHF (congestive heart failure): (3) CHF exacerbation: (4) Chest pain: Plan After complete history, physical examination and review of all available clinical data the following is my assessment. I was consulted for the evaluation of this patient with findings concerning for possible acute cholecystitis per imaging, no significant symptoms related to acute cholecystitis, no significant elevation white count, there is mild elevation of the bilirubin and alk phos. Patient has a Charlson comorbidity index of 6 and is currently on ASA class IV. This is due to his heart failure and possible NSTEMI. With this findings current guidelines recommend supportive care and antibiotic management to allow for medical optimization before proceeding to the operating room. I have discussed this with the patient. At the moment I do not think the gallbladder is the cause of her wrist symptoms as chest pain is exertional in nature and shortness of breath is likely caused by heart failure which is also supported by the fact that the patient has evidence of pleural effusion on the CT scan of the abdomen and pelvis. I will recommend that we continue antibiotic management, patient can have liquid diet today and be n.p.o. after midnight. We will trend LFTs and if there is elevation of the bilirubin or the alk phos I will recommend that we proceed with a MRCP and in case of these being positive to refer the patient for ERCP and biliary decompression. At this moment the risks of undergoing surgery is far greater than the benefit of surgery due to patient clinical condition. I recommend to have cardiology evaluation is consider and general surgery will continue to closely follow this patient. Of note, patient has history of laparotomy for pseudomyxoma peritonei. -Can have clear liquid diet tonight and n.p.o. after midnight -Continue Zosyn -Pain control as needed -Additional management per medical ICU team and cardiology department. -As indicated by current guidelines (TG18) initial management of this patient will be with supportive care and antibiotics. Coding Level of Care Code 54805 Diagnoses Acute cholecystitis K81.0 CHF (congestive heart failure) I50.9 CHF exacerbation I50.9 Chest pain R07.9
[2024-02-06 20:21] LABS: Procalcitonin 0.07 ng/mL (0-0.5)
[2024-02-06 20:27] LABS: Platelet Count 169 10^3/cmm (157-399)
[2024-02-06 20:32] LABS: Phosphorus 3.8 mg/dL (2.5-4.5)
[2024-02-06 20:56] LABS: Troponin 5 6HR 30.26 ng/L (0-15)
[2024-02-06 20:57] LABS: INR 1.28 (0.8-1.2)
[2024-02-06 20:57] LABS: Lactic Sepsis W/Reflex 1.3 mmol/L (0.5-2.2)
[2024-02-06 21:01] LABS: D Dimer 1.29 ug/mLFEU (0-0.59)
[2024-02-06 21:06] LABS: Troponin 5 6HR Delta -2.74 ng/L (0-12)
[2024-02-06] MEDS: heparin 5,000 unit/mL INJ 1 mL IV (21:17)
[2024-02-06 21:31] LABS: Estmated Average Glucose 126
[2024-02-06 21:33] LABS: Chol HDL Ratio 3.61 mg/dL (1.0-5.00); Cholesterol 166 mg/dL (0-200); HDL Cholesterol 46 mg/dL (60-100); LDL Cholesterol Calculated 94 mg/dL (50-129); LDL HDL Ratio 2.04 RATIO (0.00-3.22); Thyroid Stimulating Hormone 1.95 uIU/mL (0.27-4.20); Triglycerides 129 mg/dL (0-150)
--- NOTE | 2024-02-06 21:46 | P.CONIM_ITS ---
Providers/Reason For Consult 2 Consulting Physician/Specialty*: JANEY Redmond MD/cardiology Reason for Consult*: Patient with history of coronary artery disease, presenting with chest pain and ventricular arrhythmia on the monitor Requesting Physician: Dr. Agrawal Attending Physician: Mani Agrawal MD Primary Care Provider: LILIANA Hinkle History of Present Illness History of Present Illness Dar Ortega is a 78 year old male with a history of atherosclerotic heart disease, status post coronary bypass surgery, status post permanent pacer implantation, is presenting with complaints of chest pain and shortness of breath. This patient had three-vessel coronary bypass surgery in 2018 at the [facility] in [place]. The details are not available at this time. He had a dual-chamber permanent pacer implantation in [address] Munoz at the [facility]. Sometime later, the patient went into atrial fibrillation and developed a left bundle branch block. There was some discussion about upgrading the device to [employer]. According the patient, he has been having shortness of breath for the last 4 months. The symptoms seems to be slowly getting worse. He also has been noticing swelling of the lower extremities. He started having chest pain 4 days ago. The chest pain is more or less constant with some waxing and waning. He describes the pain as a nagging type of pain, mild to moderate in intensity. Did not have any fever, chills. He has been having shortness of breath mostly with exertion. Lately even at rest, he has been experiencing the shortness of breath. He has symptoms suggestive of paroxysmal nocturnal dyspnea. He may have a dry cough. He also is complaining of having abdominal/epigastric pain for the last couple of days. 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 He had a CT of the abdomen and pelvis was found to have a dilated gallbladder with some thickening of the wall. Possibility of cholecystitis is being considered. At the time of examination, patient denies any chest pain. He was found to have frequent PVCs/nonsustained ventricular tachycardia on the monitor. He was started on IV amiodarone. Currently has occasional PVCs. Review of Systems 2 Narrative: CONSTITUTIONAL: No fever or chills. EYES: No blurring of vision or other visual disturbances lately. ENT: No hoarseness of voice, auditory disturbances or sore throat. CARDIOVASCULAR: As mentioned above. RESPIRATORY: No significant cough. GASTROINTESTINAL: History of pseudomyxoma peritonei as mentioned above. Abdominal pain as mentioned above GENITOURINARY: No dysuria or hematuria. INTEGUMENTARY: No skin rashes or history of skin cancer. NEURO: No transient ischemic attacks or amaurosis. PSYCHIATRIC: No history of psychosis or major depression. HEMATOLOGIC: No bleeding disorders or significant anemia. ENDOCRINE: No history of polyuria or polydipsia. MUSCULOSKELETAL: No recent joint pain or swelling. ALLERGY/IMMUNOLOGY: As mentioned above. Medications/Allergies Home Medications Medication Instructions Recorded Confirmed Last Taken Type tramadol 50 mg tablet 50 mg PO BID PRN pain 7 days #14 03/26/22 02/06/24 02/06/24 Rx tabs nitroglycerin 0.4 mg sublingual 0.4 mg sublingual Q5M PRN chest 04/12/23 02/06/24 02/05/24 Rx tablet pain #20 tabs spironolactone 25 mg tablet 12.5 mg PO DAILY 06/16/23 02/06/24 02/06/24 History furosemide 40 mg tablet 20 mg PO DAILY PRN Edema 02/06/24 02/06/24 Unknown History metoprolol succinate 50 mg 50 mg PO DAILY 02/06/24 02/06/24 02/06/24 History tablet,extended release 24 hr mirtazapine 15 mg tablet 15 mg PO DAILY 02/06/24 02/06/24 02/06/24 History tizanidine 4 mg capsule 4 mg PO DAILY 02/06/24 02/06/24 02/06/24 History trazodone 50 mg tablet 50 mg PO BEDTIME PRN Sleep 02/06/24 02/06/24 Unknown History Allergies Allergy/AdvReac Type Severity Reaction Status Date / Time meperidine [From Demerol] Allergy Intermediate UNK Verified 02/06/24 12:21 povidone-iodine Allergy Unknown Verified 02/06/24 12:21 [From Betadine] soap [From Betadine] Allergy Unknown Verified 02/06/24 12:21 Current Medications Generic Name Dose Route Start Last Admin Trade Name Freq PRN Reason Stop Dose Admin Heparin Sodium (Porcine) 0 unit 02/06/24 19:16 02/06/24 21:17 Heparin 5,000 Unit/Ml Inj 1 Ml IV 3,800 unit PRN PRN Administration Heparin weight-base protocol Protocol Amiodarone HCl/Dextrose 360 mg in 200 mls @ 0 mls/hr 02/06/24 19:16 02/06/24 19:38 Nexterone IV 1 mg/min .Q0M JULIAN 33.33 mls/hr Administration Protocol Per Protocol Heparin Sodium/Sodium Chloride 25,000 unit in 500 mls @ 0 mls/hr 02/06/24 19:16 02/06/24 19:37 Heparin Drip IV 14 unit/kg/hr .Q0M JULIAN 21.59 mls/hr Administration Protocol Per Protocol Pantoprazole Sodium 40 mg 02/06/24 19:16 02/06/24 19:38 Pantoprazole 40 Mg Sdv IVP 40 mg Q12H JULIAN Administration PFSH Acute 2 PFSH: Medical History Pseudomyxoma peritonei History of resection Hx of nephrolithotomy with removal of calculi History of pacemaker Essential hypertension Surgical History S/P laparotomy Omental resection for pseudomyxoma peritonei History of back surgery History of hernia repair History of cervical sympathectomy History of coronary artery bypass graft x 3 History of open heart surgery Social History Smoking and tobacco/nicotine status: former use of tobacco/nicotine Alcohol intake: never Substance/Drug Use: never Adopted: No Caregiver/support person: No Lives independently: No Household members: spouse Marital status: Sexually active: Yes Do you think of yourself as: Straight/Heterosexual Current gender identity: Male Vitals/I&O/Wt Last Vital Signs Temp 97.6 F 02/06/24 20:20 Pulse 84 02/06/24 20:25 Resp 17 02/06/24 20:25 BP 163/106 02/06/24 20:25 Pulse Ox 98 02/06/24 20:25 O2 Del Method Room Air 02/06/24 20:20 02/06/24 02/06/24 02/06/24 06:59 14:59 22:59 Intake Total 550 / 550 Output Total 200 / 200 Balance 350 / 350 Weight last 48 hrs Weight 167 lb 8 oz Weight 170 lb Physical Exam 2 Narrative: GENERAL: The patient is alert and oriented times three. Not in any acute distress. HEENT: No significant pallor, icterus or lymphadenopathy.Oral cavity: There are no mucous membrane lesions. NECK: Trachea appears to be central. No masses noted. No JVD or thyromegaly appreciated. RESPIRATORY: Chest is symmetrical. No intercostals muscle retraction or any accessory muscle activation. There is no chest wall tenderness. Breath sounds are heard bilaterally. No rales or rhonchi heard. No evidence of any consolidation. BREASTS: Deferred. HEART: The heart sounds are normal. No S3 or S4. Systolic murmur grade 4 or 6 in the left sternal border. Early diastolic murmur grade 3 or 6 in the second aortic area. No pericardial rub ABDOMEN: No vessel pulsations or distention. No tenderness. No organomegaly appreciated. Bowel sounds are normally heard. : Deferred. RECTAL: Deferred. LYMPHATIC: No lymphadenopathy noted in the neck. EXTREMITIES: 1+ edema both lower extremities. No cyanosis. MUSCULOSKELETAL: No acute joint deformities or swelling SKIN: There are no significant rashes or ecchymosis NEUROPSYCHIATRIC: The patient is alert and oriented x3. Appears to be in a good mood. No tremors or rigidity noted. Data 02/07/24 03:55 02/07/24 03:55 Other Labs: Laboratory Last Values WBC 8.93 10^3/uL (3.29-11.43) 02/06/24 12:52 RBC 5.44 10^6/uL (3.85-5.65) 02/06/24 12:52 Hgb 17.40 g/dL (11.27-16.99) H 02/06/24 12:52 Hct 53.6 % (37-53) H 02/06/24 12:52 MCV 98.5 fl (82-101) 02/06/24 12:52 MCH 32.0 pg (27-33) 02/06/24 12:52 MCHC 32.5 g/dL (30-55) 02/06/24 12:52 RDW 15.7 % (12.1-15.1) H 02/06/24 12:52 Plt Count 169 10^3/cmm (157-399) 02/06/24 20:12 MPV 10.6 fL (7.4-10.4) H 02/06/24 12:52 Neut % (Auto) 65.1 % 02/06/24 12:52 Lymph % (Auto) 24.9 % 02/06/24 12:52 Nance % (Auto) 8.0 % 02/06/24 12:52 Eos % (Auto) 0.9 % 02/06/24 12:52 Baso % (Auto) 0.9 % 02/06/24 12:52 Neut # (Auto) 5.82 10^3/uL (1.8-7.7) 02/06/24 12:52 Lymph # (Auto) 2.2 10^3/uL (0.8-4.8) 02/06/24 12:52 Nance # (Auto) 0.7 10^3/uL (0.2-0.9) 02/06/24 12:52 Eos # (Auto) 0.1 10^3/uL (0.0-0.8) 02/06/24 12:52 Baso # (Auto) 0.1 10^3/uL (0.0-0.1) 02/06/24 12:52 Nucleated RBC % (auto) 0 % 02/06/24 12:52 Nucleated RBCs # 0.0 /100WBC 02/06/24 12:52 PT 16.40 SECONDS (12.1-14.9) H 02/06/24 19:42 INR 1.28 (0.8-1.2) H 02/06/24 19:42 D-Dimer 1.29 ug/mLFEU (0-0.59) H 02/06/24 19:42 Sodium 141 mmol/L (136-145) 02/06/24 12:52 Potassium 4.0 mmol/L (3.5-5.1) 02/06/24 12:52 Chloride 100 mmol/L (98-107) 02/06/24 12:52 Carbon Dioxide 27 mmol/L (22-29) 02/06/24 12:52 Anion Gap 18.0 (5-19) 02/06/24 12:52 BUN 27 mg/dL (8-23) H 02/06/24 12:52 Creatinine 1.5 mg/dL (0.7-1.2) H 02/06/24 12:52 GFR Calculation Not Reportable 02/06/24 12:52 Glucose 96 mg/dL (65-115) 02/06/24 12:52 Estimat Average Glucose 126 02/06/24 20:12 Hemoglobin A1c 6.0 % (4.0-6.0) 02/06/24 20:12 Calculated Osmolality 297 mOsm/kg (285-295) H 02/06/24 12:52 Lactic Acid 1.3 mmol/L (0.5-2.2) 02/06/24 20:12 Calcium 10.0 mg/dL (8.5-10.5) 02/06/24 12:52 Phosphorus 3.8 mg/dL (2.5-4.5) 02/06/24 15:10 Magnesium 2.0 mg/dL (1.7-2.3) 02/06/24 15:10 Total Bilirubin 1.6 mg/dL (0.15-1.2) H 02/06/24 12:52 AST 36 U/L (0-40) 02/06/24 12:52 ALT 23 U/L (0-41) 02/06/24 12:52 Alkaline Phosphatase 154 U/L (40-130) H 02/06/24 12:52 Troponin T Baseline 33 ng/L (0-15) H 02/06/24 12:52 Troponin T 120 Minute 34.16 ng/L (0-15) H 02/06/24 15:10 Delta Troponin T 1.16 ABS# (0-10) 02/06/24 15:10 Troponin T Hi Sens 6Hr 30.26 ng/L (0-15) H 02/06/24 19:42 Troponin T Hi Sens 6Hr Delta -2.74 ng/L (0-12) L 02/06/24 19:42 C-Reactive Protein 3.0 mg/L (0.0-4.9) 02/06/24 15:10 NT-Pro-B Natriuret Pep 28654 pg/mL (0-450) H 02/06/24 12:52 Total Protein 7.5 g/dL (6.6-8.7) 02/06/24 12:52 Albumin 4.1 g/dL (3.5-5.2) 02/06/24 12:52 Globulin 3.4 g/dL (1.3-4.6) 02/06/24 12:52 Triglycerides 129 mg/dL (0-150) 02/06/24 19:42 Cholesterol 166 mg/dL (0-200) 02/06/24 19:42 LDL Cholesterol, Calc 94 mg/dL (50-129) 02/06/24 19: HDL Cholesterol 46 mg/dL (60-100) L 02/06/24 19:42 LDL/HDL Ratio 2.04 RATIO (0.00-3.22) 02/06/24 19: Cholesterol/HDL Ratio 3.61 mg/dL (1.0-5.00) 02/06/24 19:42 Procalcitonin 0.07 ng/mL (0-0.5) 02/06/24 15:10 TSH 1.95 uIU/mL (0.27-4.20) 02/06/24 19:42 A&P Assessment and plan (1) Chest pain: The patient's chest pain may suggest underlying coronary ischemia. Possibility of worsening of the disease in the [place] vessels versus grafted vessels are considerations. Patient may require a cardiac catheterization, to further evaluate the coronary status. Qualifiers: Chest pain type: precordial pain Qualified Code(s): R07.2 - Precordial pain (2) History of coronary artery bypass graft x 3: The details of this bypass surgery is not known at this point. We will try to get the medical records from [facility]. (3) Acute on chronic diastolic (congestive) heart failure: Patient is LV systolic function was in the 40s before. Repeat echocardiogram is pending. May continue on the careful IV diuresis. Will start him on the GDMT after reviewing the echocardiogram (4) Essential hypertension: Patient blood pressures are stage II. Need to optimize the antihypertensive medications. (5) History of pacemaker: The pacemaker function appears to be appropriate We may do a detailed pacemaker interrogation. (6) Nonsustained ventricular tachycardia: The etiology is not clear. Coronary ischemia is a consideration. Amiodarone may be continued for the time being. (7) Acute cholecystitis: Being managed by the surgery (8) Chronic atrial fibrillation: The patient apparently refused oral anticoagulation. Currently he is on IV heparin. Plan We will try to get the medical records from [place]. Patient may be carefully treated with IV diuretics. The IV amiodarone may be continued. Echocardiogram was done. I will be reviewing the study. Based on the clinical response and also the results of the above, further recommendations will be made. Thank you for the opportunity to evaluate this patient and make these recommendations Consult Attestations 2 Medical Necessity Statement: EKG showed 100% V paced rhythm CT of the abdomen and pelvis 1. Cholelithiasis with adjacent pericho lecystic stranding. Nondilated gallbladder. No bile duct dilatation. Correlate for acute cholecystitis. 2. Tricuspid regurgitation into the hep atic veins. 3. Bilateral perinephric stranding with no obstruction. This may be chronic or related to acute pyelonephritis. 4. Small bilateral pleural effusions, R IGHT greater than LEFT. 5. Surgical anastomotic sutures in the colon are stable. 6. Small amount of ascites along the pa racolic gutters. Coding Level of Care Code G0427 (70 min) Diagnoses Precordial pain R07.2 Chest pain type: precordial pain History of coronary artery bypass graft x 3 Z95.1 Acute on chronic diastolic (congestive) heart failure I50.33 Essential hypertension I10 History of pacemaker Z95.0 Nonsustained ventricular tachycardia I47.29 Acute cholecystitis K81.0 Chronic atrial fibrillation I48.20
[2024-02-06] MEDS: amlodipine 5 mg Tablet PO (23:31)
[2024-02-07] VITALS (62 sets, daily range): BP systolic 94–152; BP diastolic 66–129; PULSE 61–114; RESP 0–31; TEMP 36.1–36.5; O2SAT 78–100
[2024-02-07] MEDS: piperacillin-tazobactam 3.375 GM in sodium chloride 0.9% (plus) 50 ML IV ×3 (01:45→17:46)
[2024-02-07 03:29] LABS: Partial Thromboplastin Time > 250.0 SECONDS (23.9-36.7)
--- NOTE | 2024-02-07 03:42 | PC.NURSE ---
Informed Dr Navarrete of PTT >250. Received orders to hold heparin for 4 hours and recheck ptt at that time.
[2024-02-07 04:34] LABS: Basophils # 0.1 10^3/uL (0.0-0.1); Basophils % 0.9 %; Eosinophils # 0.1 10^3/uL (0.0-0.8); Eosinophils % 1.8 %; Hematocrit 48.1 % (37-53); Lymphocytes # 1.8 10^3/uL (0.8-4.8); Lymphocytes % 26.9 %; Mean Corpuscular HGB Conc 33.1 g/dL (30-55); Mean Corpuscular Hemoglobin 32.1 pg (27-33); Mean Platelet Volume 10.6 fL (7.4-10.4); Monocytes # 0.6 10^3/uL (0.2-0.9); Monocytes % 8.6 %; Neutrophils # 4.19 10^3/uL (1.8-7.7); Neutrophils % 61.4 %; Nucleated Red Blood Cells % 0 %; Platelet Count 191 10^3/cmm (157-399); Red Blood Count 4.96 10^6/uL (3.85-5.65); Red Cell Distribution Width 15.7 % (12.1-15.1); White Blood Count 6.83 10^3/uL (3.29-11.43)
[2024-02-07 05:00] LABS: Magnesium 1.8 mg/dL (1.7-2.3); Phosphorus 3.3 mg/dL (2.5-4.5)
[2024-02-07 05:24] LABS: Alanine Aminotransferase 15 U/L (0-41); Albumin Level 3.3 g/dL (3.5-5.2); Alkaline Phosphatase 115 U/L (40-130); Anion Gap 19.3 (5-19); Aspartate Amino Transferase 25 U/L (0-40); Blood Urea Nitrogen 25 mg/dL (8-23); Calcium 8.2 mg/dL (8.5-10.5); Carbon Dioxide 25 mmol/L (22-29); Chloride 102 mmol/L (98-107); Creatinine Clr Calc Pharmacy 50.0841; Globulin 2.5 g/dL (1.3-4.6); Glucose 91 mg/dL (65-115); NT Pro B Type Natriuretic Pept 9775 pg/mL (0-450); Osmolality Calculated 300 mOsm/kg (285-295); Potassium 3.3 mmol/L (3.5-5.1); Sodium 143 mmol/L (136-145); Total Bilirubin 0.9 mg/dL (0.15-1.2); Total Protein 5.8 g/dL (6.6-8.7)
[2024-02-07] MEDS: pantoprazole 40 mg SDV IVP ×2 (06:18→20:32)
--- NOTE | 2024-02-07 07:00 | XR_ITS ---
WS: [id number] PORTABLE CHEST HISTORY: sob COMPARISON: 02/06/2024 Prior CABG. LEFT subclavian dual-lead pacer. Lungs are hyperinflated. Very slight elevation of the RIGHT hemidiaphragm is similar to the prior jovanni dy. Very small RIGHT pleural effusion versus pleural thickening at the costophrenic angle. No areas o f consolidation. No pneumothorax. Cardiac size: Moderately enlarged heart. Mediastinum/Aorta: Methylsucrose is aorta. Bones are mildly osteopenic. IMPRESSION: 1. Moderate cardiomegaly. 2. Hyperexpanded lungs. No pneumonia. 3. Prior CABG.
--- NOTE | 2024-02-07 07:01 | P.PN_ITS ---
Subjective 2 Subjective: Good progression over the last 12 hours, patient has remained pain-free, no nausea no vomiting, no GI symptoms. Patient states that he is hungry. Vitals/I&O/Wt Last Vital Signs Temp 97.5 F L 02/06/24 23:45 Pulse 70 02/07/24 06:15 Resp 21 H 02/07/24 06:15 BP 130/89 02/07/24 06:15 Pulse Ox 97 02/07/24 06:15 O2 Del Method Room Air 02/06/24 23:45 02/06/24 02/07/24 02/07/24 22:59 06:59 14:59 Intake Total 1012 / 1012 420.561 / 1432.561 Output Total 1175 / 1175 1550 / 2725 Balance -163 / -163 -1129.439 / -1292.439 Weight last 48 hrs Weight 166 lb 6.4 oz Weight 167 lb 8 oz Weight 170 lb Physical Exam 2 GI: OTHER: Abdomen is soft, nontender, nondistended Data 02/07/24 03:55 02/07/24 03:55 A&P Assessment and plan (1) Acute cholecystitis: (2) CHF (congestive heart failure): (3) CHF exacerbation: Qualifiers: Heart failure type: systolic Qualified Code(s): I50.23 - Acute on chronic systolic (congestive) heart failure (4) Chronic atrial fibrillation: Plan Patient has shown very good progression from the general surgery standpoint over the last 12 hours. White count remains normal and it has down trended from initial presentation. LFTs have down trended and bilirubin is normal now. Will continue management with IV antibiotics and fluids. I do not anticipate the need for surgical intervention during this hospital stay. Patient will require to continue management by medical ICU team and cardiology for decompensated heart failure and cardiac ischemia. -Can be started on full liquid diet and advance to low-fat diet as tolerated. -Can receive 10 days of Augmentin as outpatient -General Surgery will continue to follow Attestations 2 Medical Necessity Statement*: Per medical team Coding Level of Care Code Acute Code for Chg Fwd Diagnoses Acute cholecystitis K81.0 CHF (congestive heart failure) I50.9 Acute on chronic systolic congestive heart failure I50.23 Heart failure type: systolic Chronic atrial fibrillation I48.20
[2024-02-07 08:04] LABS: Partial Thromboplastin Time 30.8 SECONDS (23.9-36.7)
[2024-02-07] MEDS: FUROsemide 10 mg/mL SDV 4mL 40 MG IVP (10:23)
[2024-02-07] MEDS: lidocaine 1% 5 ML in potassium chloride premix 100 ML 50 ML IV (10:28)
[2024-02-07] MEDS: amlodipine 5 mg Tablet PO (10:35)
[2024-02-07] MEDS: aspirin 81 mg EC Tablet PO (10:36)
[2024-02-07] MEDS: metoprolol succinate ER (24 HR) 50 mg Tablet PO (10:36)
[2024-02-07] MEDS: potassium chloride ER 20 mEq Tablet 40 MEQ PO (10:42)
--- NOTE | 2024-02-07 13:53 | P.PN_ITS ---
Vitals/I&O/Wt Last Vital Signs Temp 97.3 F L 02/07/24 12:30 Pulse 76 02/07/24 12:30 Resp 24 H 02/07/24 12:30 BP 127/89 02/07/24 12:30 Pulse Ox 97 02/07/24 12:00 O2 Del Method Room Air 02/06/24 23:45 02/06/24 02/07/24 02/07/24 22:59 06:59 14:59 Intake Total 1012 / 1012 420.561 / 1432.561 800 / 800 Output Total 1175 / 1175 1550 / 2725 1000 / 1000 Balance -163 / -163 -1129.439 / -1292.439 -200 / -200 Weight last 48 hrs Weight 75.478 kg Weight 75.977 kg Weight 77.111 kg Physical Exam 2 Const: COMMON NORMALS: no acute distress and patient oriented x3 Resp: COMMON NORMALS: normal respiratory effort, No retractions, No use of accessory muscles and clear to auscultation bilaterally AUSCULTATION: clear to auscultation bilaterally Cardio: COMMON NORMALS: regular rate, regular rhythm, S1 normal heart sound present and S2 normal heart sound present RATE: regular rate RHYTHM: r egular rhythm HEART SOUNDS: S1 normal heart sound present and S2 normal heart sound present GI: COMMON NORMALS: Normal to inspection, nondistended, normoactive bowel sounds present and non-tender Extremity: COMMON NORMALS: no pedal edema Neuro: COMMON NORMALS: patient oriented x3 Psych: COMMON NORMALS: mental status grossly normal Data 02/07/24 03:55 02/07/24 03:55 A&P Assessment and plan (1) Chest pain: Qualifiers: Chest pain type: precordial pain Qualified Code(s): R07.2 - Precordial pain (2) CHF exacerbation: Qualifiers: Heart failure type: systolic Qualified Code(s): I50.23 - Acute on chronic systolic (congestive) heart failure (3) Nonsustained ventricular tachycardia: (4) History of coronary artery bypass graft x 3: (5) Bundle branch block, left: (6) History of pacemaker: (7) GERD (gastroesophageal reflux disease): (8) Acute cholecystitis: Plan Chest pain ? Sounds cardiac in nature ? Has a history of CABG x 3 ?Initial troponin 33, with a 120-minute of 34.6 down to 1.16, EKG no acute ST-T wave changes ? Plan ? Aspirin 325 ? Atorvastatin, ? Continue home beta-yamilex ? Nitro as needed for chest pain ? CONCLUSIONS Severe diffuse hypokinesis of the left ventricular ejection fraction of 22%. Moderate concentric left-ventricular hypertrophy. Normal RV size and ejection fraction. Moderate to severely atrium. Increased right atrial size. Moderately dilated left atrium with an end-systolic volume index of 57 mL/m squared. Mild-moderate mitral valve regurgitation. [id number] aortic valve regurgitation. Moderate tricuspid valve regurgitation. Estimated pulmonary artery peak systolic pressure 27 mmHg. Moderate pulmonary valve regurgitation. There is no pericardial effusion. There are no intracardiac masses. No similar previous studies are available for comparison ? on heparin drip ? Full code ? Heparin drip for DVT prophylaxis Nonsustained V. tach ? Initial EKG shows ventricular paced rhythm, During my initial discussion with patient, at times during my interview, patient would have episodes of nonsustained V. tach, at other times it would look like A-fib, heart rates as high as 120s Nonsustained V. tach, the most amount of beats that I counted was 20 beats of nonsustained V. tach ? He denies any chest pain, no palpitations currently -Patient has been in talks with cardiology about placing a ICD for abnormal rhythm -Review of his pacemaker check he has had a couple episodes of nonsustained V. tach over the last few years, last episode I can see is in November ? Potassium within normal limits, magnesium levels pending ? Spoke to cardiology, Dr. Redmond will consult ? on amiodarone drip for now ? Interrogate pacemaker Shortness of breath -Concerning for CHF exacerbation given patient's symptomatology elevated BNP over 11,000, -3L overnight -1 dose IV push Lasix 40 mg today -Monitor clinically -Creatinine is 1.3 monitor potassium monitor magnesium Epigastric discomfort, acid reflux, acute cholecystitis Gallbladder ultrasound ?Gallbladder: Distended gallbladder with gallbladder wall thickening measuring 4 mm. Gallstones in the gallbladder. Acute cholecystitis should be suspected. ? Plan ? Will start patient on Zosyn, clears., hold off on IV fluids History of CABG History of CHF last EF was 45% History of pseudomyxoma peritonei status post surgery Patient is full code Heparin drip for DVT prophylaxis ? Monitor in ICU given nonsustained V. tach episode chest pain shortness of breath Plan for today echocardiogram shows EF of 22%, await cardiology's recommendation, possible coronary angiography, currently on amiodarone drip due to nonsustained V. tach, I have not noticed any this morning, on a heparin drip, 1 dose IV Lasix, Attestations 2 Medical Necessity Statement*: Patient requires hospitalization for chest pain, NSTEMI EF down to 22% concern for ischemic cardiomyopathy, nonsustained V. tach, shortness of breath requiring IV diuresis, acute cholecystitis, and High MDM includes number and complexity of problems actively addressed during encounter, amount and/or complexity of data reviewed/ordered and described risk of complication, morbidity or mortality of management as documented Diagnoses Precordial pain R07.2 Chest pain type: precordial pain Acute on chronic systolic congestive heart failure I50.23 Heart failure type: systolic Nonsustained ventricular tachycardia I47.29 History of coronary artery bypass graft x 3 Z95.1 Bundle branch block, left I44.7 History of pacemaker Z95.0 GERD (gastroesophageal reflux disease) K21.9 Acute cholecystitis K81.0
[2024-02-07 15:46] LABS: Partial Thromboplastin Time 134.1 SECONDS (23.9-36.7)
--- NOTE | 2024-02-07 16:55 | PC.NURSE ---
[facility] return request for info from previous hospitalization saying no info found. Submitted another request with more specific info such as Pacemaker inserted in Jul [address] Munoz and triple by pass done in February 2021.
--- NOTE | 2024-02-07 21:20 | PM.PN ---
Subjective Subjective: Patient's shortness of breath is improving. No chest pain. Telemetry shows atrial fibrillation with a controlled ventricular response rate. Demand V pacing. Occasional PVCs. Medications: Medication Review Details: Current Medications Acetaminophen (Acetaminophen 325 Mg Tablet) 650 mg PO Q6H PRN PRN Reason: Mild/Mod Pain Or Temp >/= 101 Amlodipine Besylate (Amlodipine 5 Mg Tablet) 5 mg PO DAILY [facility] Last Admin: 02/07/24 10:35 Dose: 5 mg Aspirin (Aspirin 81 Mg Ec Tablet) 81 mg PO DAILY [facility] Last Admin: 02/07/24 10:36 Dose: 81 mg Heparin Sodium (Porcine) (Heparin 5,000 Unit/Ml Inj 1 Ml) 0 unit IV PRN PRN; Protocol PRN Reason: Heparin weight-base protocol Last Admin: 02/06/24 21:17 Dose: 3,800 unit Amiodarone HCl/Dextrose (Nexterone) 360 mg in 200 mls @ 0 mls/hr IV .Q0M [facility]; Protocol Last Admin: 02/07/24 13:51 Dose: 0.5 mg/min, 16.67 mls/hr Heparin Sodium/Sodium Chloride (Heparin Drip) 25,000 unit in 500 mls @ 0 mls/hr IV .Q0M [facility]; Protocol Last Titration: 02/07/24 16:05 Dose: 10.37 unit/kg/hr, 16 mls/hr Piperacillin Sod/Tazobactam (Sod 3.375 gm/ Sodium Chloride) 50 mls @ 12.5 mls/hr IV Q8H [facility]; Protocol Last Admin: 02/07/24 17:46 Dose: 12.5 mls/hr Metoclopramide HCl (Metoclopramide 5 Mg/Ml Sdv 2 Ml) 5 mg IVP Q6H PRN PRN Reason: NAUSEA AND VOMITING Metoprolol Succinate (Metoprolol Succinate Er (24 Hr) 50 Mg Tablet) 50 mg PO DAILY [facility] Last Admin: 02/07/24 10:36 Dose: 50 mg Morphine Sulfate (Morphine 4 Mg/Ml Sdv 1 Ml) 2 mg IVP Q4H PRN PRN Reason: SEVERE PAIN Nitroglycerin (Nitroglycerin 0.4 Mg Sublingual Tablet) 0.4 mg SUBLINGUAL Q5M PRN PRN Reason: chest pain Ondansetron HCl (Ondansetron 2 Mg/Ml Sdv 2 Ml) 4 mg IVP Q8H PRN PRN Reason: vomiting, or N/V if npo Pantoprazole Sodium (Pantoprazole 40 Mg Sdv) 40 mg IVP Q12H [facility] Last Admin: 02/07/24 20:32 Dose: 40 mg Vitals/I&O/Wt Last Vital Signs Temp 97.1 F L 02/07/24 18:00 Pulse 76 02/07/24 18:00 Resp 31 H 02/07/24 18:00 BP 130/96 02/07/24 18:00 Pulse Ox 95 02/07/24 17:30 O2 Del Method Room Air 02/06/24 23:45 02/07/24 02/07/24 02/07/24 06:59 14:59 22:59 Intake Total 420.561 / 1432.561 905 / 905 687.667 / 1592.667 Output Total 1550 / 2725 1000 / 1000 300 / 1300 Balance -1129.439 / -1292.439 -95 / -95 387.667 / 292.667 Weight last 48 hrs Weight 166 lb 6.4 oz Weight 167 lb 8 oz Weight 170 lb Physical Exam Narrative: GENERAL: The patient is alert and oriented times three. Not in any acute distress. HEENT: No significant pallor, icterus or lymphadenopathy.Oral cavity: There are no mucous membrane lesions. NECK: Trachea appears to be central. No masses noted. No JVD or thyromegaly appreciated. RESPIRATORY: Chest is symmetrical. No intercostals muscle retraction or any accessory muscle activation. There is no chest wall tenderness. Breath sounds are heard bilaterally. No rales or rhonchi heard. No evidence of any consolidation. BREASTS: Deferred. HEART: The heart sounds are normal. No S3 or S4. Systolic murmur grade 4 or 6 in the left sternal border. Early diastolic murmur grade 3 or 6 in the second aortic area. No pericardial rub ABDOMEN: No vessel pulsations or distention. No tenderness. No organomegaly appreciated. Bowel sounds are normally heard. : Deferred. RECTAL: Deferred. LYMPHATIC: No lymphadenopathy noted in the neck. EXTREMITIES: 1+ edema both lower extremities. No cyanosis. MUSCULOSKELETAL: No acute joint deformities or swelling SKIN: There are no significant rashes or ecchymosis NEUROPSYCHIATRIC: The patient is alert and oriented x3. Appears to be in a good mood. No tremors or rigidity noted. Data 02/07/24 03:55 02/07/24 03:55 Other Labs: Laboratory Last Values WBC 6.83 10^3/uL (3.29-11.43) 02/07/24 03:55 RBC 4.96 10^6/uL (3.85-5.65) 02/07/24 03:55 Hgb 15.90 g/dL (11.27-16.99) 02/07/24 03:55 Hct 48.1 % (37-53) 02/07/24 03:55 MCV 97.0 fl (82-101) 02/07/24 03:55 MCH 32.1 pg (27-33) 02/07/24 03:55 MCHC 33.1 g/dL (30-55) 02/07/24 03:55 RDW 15.7 % (12.1-15.1) H 02/07/24 03:55 Plt Count 191 10^3/cmm (157-399) 02/07/24 03:55 MPV 10.6 fL (7.4-10.4) H 02/07/24 03:55 Neut % (Auto) 61.4 % 02/07/24 03:55 Lymph % (Auto) 26.9 % 02/07/24 03:55 [place] % (Auto) 8.6 % 02/07/24 03:55 Eos % (Auto) 1.8 % 02/07/24 03:55 Baso % (Auto) 0.9 % 02/07/24 03:55 Neut # (Auto) 4.19 10^3/uL (1.8-7.7) 02/07/24 03:55 Lymph # (Auto) 1.8 10^3/uL (0.8-4.8) 02/07/24 03:55 [place] # (Auto) 0.6 10^3/uL (0.2-0.9) 02/07/24 03:55 Eos # (Auto) 0.1 10^3/uL (0.0-0.8) 02/07/24 03:55 Baso # (Auto) 0.1 10^3/uL (0.0-0.1) 02/07/24 03:55 Nucleated RBC % (auto) 0 % 02/07/24 03:55 Nucleated RBCs # 0.0 /100WBC 02/07/24 03:55 PT 16.40 SECONDS (12.1-14.9) H 02/06/24 19:42 INR 1.28 (0.8-1.2) H 02/06/24 19:42 APTT 134.1 SECONDS (23.9-36.7) H D 02/07/24 15:07 D-Dimer 1.29 ug/mLFEU (0-0.59) H 02/06/24 19:42 Sodium 143 mmol/L (136-145) 02/07/24 03:55 Potassium 3.3 mmol/L (3.5-5.1) L 02/07/24 03:55 Chloride 102 mmol/L (98-107) 02/07/24 03:55 Carbon Dioxide 25 mmol/L (22-29) 02/07/24 03:55 Anion Gap 19.3 (5-19) H 02/07/24 03:55 BUN 25 mg/dL (8-23) H 02/07/24 03:55 Creatinine 1.3 mg/dL (0.7-1.2) H 02/07/24 03:55 GFR Calculation Not Reportable 02/07/24 03:55 Glucose 91 mg/dL (65-115) 02/07/24 03:55 Estimat Average Glucose 126 02/06/24 20:12 Hemoglobin A1c 6.0 % (4.0-6.0) 02/06/24 20:12 Calculated Osmolality 300 mOsm/kg (285-295) H 02/07/24 03:55 Lactic Acid 1.3 mmol/L (0.5-2.2) 02/06/24 20:12 Calcium 8.2 mg/dL (8.5-10.5) L 02/07/24 03:55 Phosphorus 3.3 mg/dL (2.5-4.5) 02/07/24 03:55 Magnesium 1.8 mg/dL (1.7-2.3) 02/07/24 03:55 Total Bilirubin 0.9 mg/dL (0.15-1.2) 02/07/24 03:55 Direct Bilirubin 0.40 mg/dL (0.00-0.30) H 02/07/24 03:55 AST 25 U/L (0-40) 02/07/24 03:55 ALT 15 U/L (0-41) 02/07/24 03:55 Alkaline Phosphatase 115 U/L (40-130) 02/07/24 03:55 Troponin T Baseline 33 ng/L (0-15) H 02/06/24 12:52 Troponin T 120 Minute 34.16 ng/L (0-15) H 02/06/24 15:10 Delta Troponin T 1.16 ABS# (0-10) 02/06/24 15:10 Troponin T Hi Sens 6Hr 30.26 ng/L (0-15) H 02/06/24 19:42 Troponin T Hi Sens 6Hr Delta -2.74 ng/L (0-12) L 02/06/24 19:42 C-Reactive Protein 3.0 mg/L (0.0-4.9) 02/07/24 03:55 NT-Pro-B Natriuret Pep 9775 pg/mL (0-450) H 02/07/24 03:55 Total Protein 5.8 g/dL (6.6-8.7) L D 02/07/24 03:55 Albumin 3.3 g/dL (3.5-5.2) L 02/07/24 03:55 Globulin 2.5 g/dL (1.3-4.6) 02/07/24 03:55 Triglycerides 129 mg/dL (0-150) 02/06/24 19:42 Cholesterol 166 mg/dL (0-200) 02/06/24 19:42 LDL Cholesterol, Calc 94 mg/dL (50-129) 02/06/24 19:42 HDL Cholesterol 46 mg/dL (60-100) L 02/06/24 19:42 LDL/HDL Ratio 2.04 RATIO (0.00-3.22) 02/06/24 19:42 Cholesterol/HDL Ratio 3.61 mg/dL (1.0-5.00) 02/06/24 19:42 Procalcitonin 0.07 ng/mL (0-0.5) 02/06/24 15:10 TSH 1.95 uIU/mL (0.27-4.20) 02/06/24 19:42 Other data: Echocardiogram from 02/06/2024 Severe diffuse hypokinesis of the left ventricular ejection fraction of 22%. Moderate concentric left-ventricular hypertrophy. Normal RV size and ejection fraction. Moderate to severely atrium. Increased right atrial size. Moderately dilated left atrium with an end-systolic volume index of 57 mL/m squared. Mild-moderate mitral valve regurgitation. [id number] aortic valve regurgitation. Moderate tricuspid valve regurgitation. Estimated pulmonary artery peak systolic pressure 27 mmHg. Moderate pulmonary valve regurgitation. There is no pericardial effusion. There are no intracardiac masses. No similar previous studies are available for comparison A&P Assessment and plan (1) Chest pain: The patient's chest pain may suggest underlying coronary ischemia. Possibility of worsening of the disease in the saxman vessels versus grafted vessels are considerations. We have not yet received the medical records from [place]. Once the infection part and the heart failure are appropriately treated, we may consider going her to the cardiac catheterization. Qualifiers: Chest pain type: precordial pain Qualified Code(s): R07.2 - Precordial pain (2) History of coronary artery bypass graft x 3: The details of this bypass surgery is not known at this point. We will try to get the medical records from [facility]. (3) Acute on chronic diastolic (congestive) heart failure: Patient has a significant drop in the LV ejection fraction. Etiology is not clear.. Consider categorization to further evaluate the coronary status as well as the graft status to decide on further management. (4) Essential hypertension: Patient blood pressures seems to be getting under control. May continue on the current medications. (5) History of pacemaker: The pacemaker function appears to be appropriate We may do a detailed pacemaker interrogation. Later on. (6) Nonsustained ventricular tachycardia: The etiology is not clear. Coronary ischemia is a consideration. Amiodarone may be continued for the time being. (7) Acute cholecystitis: Being managed by the surgery. Patient is remaining afebrile. (8) Chronic atrial fibrillation: The patient apparently refused oral anticoagulation. Currently he is on IV heparin. Plan We will be repeating the BMP in the morning. Also will try to get the medical records was prefilled. May tentatively schedule for cardiac catheterization tomorrow Attestations Medical Necessity Statement*: Patient requires continued hospital stay for close monitoring and further management Coding Level of Care Code 33472 Diagnoses Precordial pain R07.2 Chest pain type: precordial pain History of coronary artery bypass graft x 3 Z95.1 Acute on chronic diastolic (congestive) heart failure I50.33 Essential hypertension I10 History of pacemaker Z95.0 Nonsustained ventricular tachycardia I47.29 Acute cholecystitis K81.0 Chronic atrial fibrillation I48.20
[2024-02-07 22:23] LABS: Partial Thromboplastin Time 155.7 SECONDS (23.9-36.7)
[2024-02-08] VITALS (47 sets, daily range): BP systolic 104–140; BP diastolic 66–93; PULSE 48–115; RESP 9–32; TEMP 36.2–37; O2SAT 90–100
[2024-02-08] MEDS: piperacillin-tazobactam 3.375 GM in sodium chloride 0.9% (plus) 50 ML IV ×3 (01:57→17:38)
[2024-02-08 04:19] LABS: Basophils # 0.1 10^3/uL (0.0-0.1); Basophils % 1.2 %; Eosinophils # 0.2 10^3/uL (0.0-0.8); Eosinophils % 2.9 %; Lymphocytes # 1.7 10^3/uL (0.8-4.8); Lymphocytes % 25.5 %; Mean Corpuscular HGB Conc 32.7 g/dL (30-55); Mean Corpuscular Hemoglobin 31.9 pg (27-33); Mean Corpuscular Volume 97.3 fl (82-101); Mean Platelet Volume 10.7 fL (7.4-10.4); Monocytes # 0.6 10^3/uL (0.2-0.9); Monocytes % 9.2 %; Neutrophils # 4.05 10^3/uL (1.8-7.7); Nucleated Red Blood Cells % 0 %; Platelet Count 186 10^3/cmm (157-399); Red Blood Count 4.52 10^6/uL (3.85-5.65); Red Cell Distribution Width 15.9 % (12.1-15.1); White Blood Count 6.63 10^3/uL (3.29-11.43)
[2024-02-08 04:42] LABS: Magnesium 1.8 mg/dL (1.7-2.3)
[2024-02-08 04:56] LABS: Alanine Aminotransferase 17 U/L (0-41); Alkaline Phosphatase 117 U/L (40-130); Anion Gap 20.5 (5-19); Aspartate Amino Transferase 23 U/L (0-40); Blood Urea Nitrogen 21 mg/dL (8-23); Calcium 7.9 mg/dL (8.5-10.5); Carbon Dioxide 26 mmol/L (22-29); Chloride 93 mmol/L (98-107); Creatinine Clr Calc Pharmacy 46.5067; Globulin 2.3 g/dL (1.3-4.6); Glucose 354 mg/dL (65-115); NT Pro B Type Natriuretic Pept 3212 pg/mL (0-450); Osmolality Calculated 299 mOsm/kg (285-295); Potassium 3.5 mmol/L (3.5-5.1); Sodium 136 mmol/L (136-145); Total Bilirubin 0.6 mg/dL (0.15-1.2); Total Protein 5.3 g/dL (6.6-8.7)
[2024-02-08] MEDS: pantoprazole 40 mg SDV IVP ×2 (08:27→20:51)
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
[2024-02-08 09:45] LABS: Partial Thromboplastin Time 82.8 SECONDS (23.9-36.7)
[2024-02-08] MEDS: amlodipine 5 mg Tablet PO (10:14)
[2024-02-08] MEDS: aspirin 81 mg EC Tablet PO (10:14)
[2024-02-08] MEDS: metoprolol succinate ER (24 HR) 50 mg Tablet PO (10:14)
--- NOTE | 2024-02-08 13:11 | PC.SOCIAL ---
Pg 2 IMM Explained to pt Pg 2 IMM. No questions voiced. Provided pt a copy. Initialed, dated, & timed a copy & placed in chart.
--- NOTE | 2024-02-08 13:39 | P.PN_ITS ---
Subjective 2 Subjective: Patient was seen this morning, currently n.p.o. for coronary angiography this morning he tells me that his breathing has significantly improved Vitals/I&O/Wt Last Vital Signs Temp 97.6 F 02/08/24 08:30 Pulse 62 02/08/24 12:00 Resp 17 02/08/24 12:00 BP 122/86 02/08/24 12:00 Pulse Ox 93 02/08/24 12:00 O2 Del Method Room Air 02/08/24 12:00 02/07/24 02/08/24 02/08/24 22:59 06:59 14:59 Intake Total 857.667 / 1762.667 419.312 / 2181.979 192.816 / 192.816 Output Total 540 / 1540 420 / 1960 300 / 300 Balance 317.667 / 222.667 -0.688 / 221.979 -107.184 / -107.184 Weight last 48 hrs Weight 75.478 kg Weight 75.977 kg Physical Exam 2 Const: COMMON NORMALS: no acute distress and patient oriented x3 Resp: COMMON NORMALS: normal respiratory effort, No retractions, No use of accessory muscles and clear to auscultation bilaterally AUSCULTATION: clear to auscultation bilaterally Cardio: COMMON NORMALS: regular rate, regular rhythm, S1 normal heart sound present and S2 normal heart sound present RATE: regular rate RHYTHM: r egular rhythm HEART SOUNDS: S1 normal heart sound present and S2 normal heart sound present GI: COMMON NORMALS: Normal to inspection, nondistended, normoactive bowel sounds present and non-tender Extremity: COMMON NORMALS: no pedal edema Neuro: COMMON NORMALS: patient oriented x3 Psych: COMMON NORMALS: mental status grossly normal Data 02/08/24 03:53 02/08/24 03:53 A&P Assessment and plan (1) Chest pain: Qualifiers: Chest pain type: precordial pain Qualified Code(s): R07.2 - Precordial pain (2) CHF exacerbation: Qualifiers: Heart failure type: systolic Qualified Code(s): I50.23 - Acute on chronic systolic (congestive) heart failure (3) Nonsustained ventricular tachycardia: (4) History of coronary artery bypass graft x 3: (5) Bundle branch block, left: (6) History of pacemaker: (7) GERD (gastroesophageal reflux disease): (8) Acute cholecystitis: Plan Chest pain ? Sounds cardiac in nature ? Has a history of CABG x 3 ?Initial troponin 33, with a 120-minute of 34.6 down to 1.16, EKG no acute ST-T wave changes ? Plan ? Aspirin 325 ? Atorvastatin, ? Continue home beta-yamilex ? Nitro as needed for chest pain ? CONCLUSIONS Severe diffuse hypokinesis of the left ventricular ejection fraction of 22%. Moderate concentric left-ventricular hypertrophy. Normal RV size and ejection fraction. Moderate to severely atrium. Increased right atrial size. Moderately dilated left atrium with an end-systolic volume index of 57 mL/m squared. Mild-moderate mitral valve regurgitation. Dyon-jn-tagfetab aortic valve regurgitation. Moderate tricuspid valve regurgitation. Estimated pulmonary artery peak systolic pressure 27 mmHg. Moderate pulmonary valve regurgitation. There is no pericardial effusion. There are no intracardiac masses. No similar previous studies are available for comparison ? on heparin drip ? Full code ? Heparin drip for DVT prophylaxis Nonsustained V. tach ? Initial EKG shows ventricular paced rhythm, During my initial discussion with patient, at times during my interview, patient would have episodes of nonsustained V. tach, at other times it would look like A-fib, heart rates as high as 120s Nonsustained V. tach, the most amount of beats that I counted was 20 beats of nonsustained V. tach ? He denies any chest pain, no palpitations currently -Patient has been in talks with cardiology about placing a ICD for abnormal rhythm -Review of his pacemaker check he has had a couple episodes of nonsustained V. tach over the last few years, last episode I can see is in November ? Potassium within normal limits, magnesium levels pending ? Spoke to cardiology, Dr. Redmond will consult ? on amiodarone drip for now ? Interrogate pacemaker Shortness of breath -Concerning for CHF exacerbation given patient's symptomatology elevated BNP over 11,000, -3L overnight -1 dose IV push Lasix 40 mg today -Monitor clinically -Creatinine is 1.3 monitor potassium monitor magnesium Epigastric discomfort, acid reflux, acute cholecystitis Gallbladder ultrasound ?Gallbladder: Distended gallbladder with gallbladder wall thickening measuring 4 mm. Gallstones in the gallbladder. Acute cholecystitis should be suspected. ? Plan ? Will start patient on Zosyn, clears., hold off on IV fluids History of CABG History of CHF last EF was 45% History of pseudomyxoma peritonei status post surgery Patient is full code Heparin drip for DVT prophylaxis ? Monitor in ICU given nonsustained V. tach episode chest pain shortness of breath Plan for today echocardiogram shows EF of 22%, plan on coronary angiography today remains on heparin drip, amiodarone drip Attestations 2 Medical Necessity Statement*: Patient requires hospitalization for NSTEMI, shortness of breath EF of 22% undergoing coronary angiography Diagnoses Precordial pain R07.2 Chest pain type: precordial pain Acute on chronic systolic congestive heart failure I50.23 Heart failure type: systolic Nonsustained ventricular tachycardia I47.29 History of coronary artery bypass graft x 3 Z95.1 Bundle branch block, left I44.7 History of pacemaker Z95.0 GERD (gastroesophageal reflux disease) K21.9 Acute cholecystitis K81.0
--- NOTE | 2024-02-08 16:00 | XACV_ITS ---
Exam Room: [facility] [place] [facility] Ht: 422 cm Wt: 33 kg BSA: 1.75 m2 Gender: Male : 1945 Any Known Allergies: Other Exam Priority: Routine Procedure(s): Procedure Description: Diagnostic procedure Procedure Description: Right Heart Catheterization Procedure Description: Venous Graft Catheterization Procedure Description: WEBER Graft Catheterization Procedure Description: O2 saturation Procedure Description: Coronary Angiography Ruy CORADO; Diagnostic Cath Status: Urgent Diagnostic Findings * The left main is a medium caliber vessel which was found to have minimal intimal irregularities. The distal segment of the artery was found to have around 30% stenosis. * The left and descending artery is a medium caliber vessel which appears to taper off to his LV apex. 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 Right calf the aneurysm, there was a 60 to 70% stenosis in the vessel. The mid and the distal left and descending artery was found to have mild to moderate diffuse disease. No severe stenotic lesions were noted. The first septal waxing machine operator is a medium caliber vessel with no significant stenotic lesion.. * The left circumflex artery is a medium to large caliber ectatic vessel with diffuse ectasia and irregularity in the proximal to mid segment. The high obtuse marginal branch and was found to have mild to moderate diffuse disease proximally. The saphenous venous graft attached to this vessel was found to have retrograde flow. The other vessels in this artery was found to be of small caliber with mild diffuse disease.. * The right coronary artery is a medium to large caliber vessel which he was found to have diffuse ectasia. Mild to moderate diffuse disease was noted in this vessel. No severe stenotic lesions. * The saphenous venous graft to the obtuse marginal artery was found to be widely patent with no significant stenotic lesions. The saphenous venous graft to the right coronary artery was found to be totally occluded proximally. The WEBER to the LAD became atretic within good antegrade flow. Conclusions 1. 78-year-old white male with a history of atherosclerotic heart disease, status post three-vessel coronary bypass surgery in 2020, now presenting with progressive shortness of breath. Features are suggestive of congestive heart failure with a severe LV systolic dysfunction. The LV ejection fraction was 20 to 25% as significant drop in the previous ejection fraction. Noted to further evaluate the coronary status as well as the graft status, a cardiac catheterization was recommended. Patient underwent left heart catheterization with left and right coronary angiogram and graft angiogram today. The findings are as follows.. 2. The left main is a medium caliber vessel which was found to have around 30% distal narrowing. 2. 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 Soon after aneurysm, there is a 60 to 70% lesion. The left circumflex artery was found to have mild to moderate diffuse disease. The right coronary artery was found to have diffuse coronary ectasia. Lesions ranging from 30 to 50% were noted throughout the vessel. The venous graft to the right coronary artery was found to be totally occluded. Venous graft to the obtuse marginal branch was found to be patent with no significant lesions. WEBER to the LAD was found to be atretic with poor antegrade flow. Diagnostic RX Recommendation: medical therapy and/or counseling Pressures Phase:Rest AO : 116 / 69 ( 86 ) @ 5:51:00 PM 104 / 70 ( 87 ) @ 5:52:00 PM 103 / 71 ( 87 ) @ 6:01:00 PM RV : 26 / 0 / 8 @ 5:46:00 PM PA : 27 / 10 ( 15 ) @ 5:44:00 PM RA : a wave = 12 v wave = 14 mean = 9 @ 5:48:00 PM PCW : a wave = 14 v wave = 18 mean = 12 @ 5:46:00 PM O2 Content Phase:Rest PA : O2 Content O2: 50.5 @ 5:51:00 PM Saturations Phase:Rest AO : 93 @ 5:44:00 PM RA : 51 @ 5:52:00 PM RV : 51 @ 6:01:00 PM PA : 51 @ 5:51:00 PM Cardiac Output Phase:Rest Estrella : 3 @ 5:22:31 PM Estrella Cardiac Index: 1 @ 5:22:31 PM Flow Phase:Rest Qp : 3 @ 5:22:31 PM Qs : 4 @ 5:22:31 PM Clinical Evaluation EBL: 5mL-10mL Procedural Details Procedure Consent Obtained. Pre-Procedure Time Out. Identified patient by full name and date of as verbalized by the patient/guarantor. Does the consent match the physician's order: Yes. Accurate & Complete Informed Consent: Yes. Inpatient/Outpatient History & Physical on Chart: Yes. If H&P is completed, is and addenduem needed: No; If yes, is the addendum complete: N/A. Visualize and Verify Site with Patient/Guarantor: N/A. Relevant Radiology Images available: Yes. Pre-op teaching completed and patient verbalized understanding. The risks, benefits, and alternatives of sedation and/or procedure were discussed by physician. The patient agrees to continue. Procedure started. [facility] Clinical Fraility Score: 4: Vulnerable. Smudger Indications: ACS > 24 hours. Chest Pain Symptom Assessment: Typical Angina Symptoms. Correct patient, site and procedure confirmed by cath team. Current diagnosis: Chest Pain. PERRLA. Strong, equal hand lead applications developer bilaterally. Lungs clear x 5 lobes. IV Site on Arrival: 18 gauge in the left anticubital. IV Fluids: 0.9% NaCl at KVO. 0 mL infused prior to shift lab technician. bilateral groins was prepped with chloroprep then draped in the usual sterile fashion. Baseline sample Acquired. HR: 70 BPM. Physician arrived. Lidocaine 1% infiltrated to the right groin. Venous access obtained with a micropuncture set. Arterial access obtained with micropuncture set. [place]imm[place] MON catheter inserted. 0.025 wire inserted. Wire out. Oximetry samples were obtained. Normal venous range: 60-85%. Normal arterial range: 95-100%. Pressure measurements obtained. [place]imm[place] out. ABG drawn and sent with respiratory therapy. A 5 colombian JL4 catheter in over wire. Oxygen started at 2liters/min via nasal canula. Catheter removed over the standard wire. A 5 colombian JR4 catheter in over wire. Multiple views taken of right coronary artery. SVG to PDA occluded. SVG's to OM visualized and patent. Catheter removed over the exchange wire. A 5 colombian IM catheter in over wire. WEBER to LAD visualized. Catheter removed over the standard wire. Physician scrubbed out. A Suture was successful obtaining hemostatsis at the Right Femoral vein insertion site. A Suture was successful obtaining hemostatsis at the Right Femoral artery insertion site. Physician review of cine films with Dr. Posadas. Arterial sheath flushed and connected to tranducer and pressure bag with heparinized saline. Post Procedure: Pulses reassessed and unchanged. PERRLA. Strong, equal hand lead applications developer bilaterally. No VTE prophylaxis required. Medication's Wasted: Lidocaine 1% = 10 mL. Medication's Wasted: Other = Fentanyl 50mcg Versed 0.5 mg. Total IV fluids: 50 mL. Complications: None. Estimated blood loss: 5mL-10mL. Responsiveness - Normal response to verbal stimuli; alert and oriented, PERRLA. Vital chart was stopped. Airway - Unaffected, no intervention required; spontaneous ventilation. Circulation: W/N/L, pulses unchanged. Nausea/Vomiting: No. Procedure completed. Patient transferred by bed to ICU. Access Site Site: Right Femoral artery Sheath Size: 6 Fr Hemostasis Method: Suture Hemostasis Success: Successful Site: Right Femoral vein Sheath Size: 6 Fr Hemostasis Method: Suture Hemostasis Success: Successful Procedure Medications Start: 4:30 PM Stop: 4:30 PM Medication: Versed Amount: 1 mg Route: I.V. Start: 4:35 PM Stop: 4:35 PM Medication: Fentanyl Amount: 25 mcg Route: I.V. Start: 4:58 PM Stop: 4:58 PM Medication: Versed Amount: 0.5 mg Route: I.V. Start: 4:59 PM Stop: 4:59 PM Medication: Heparin Amount: 1500 units Route: I.V. Start: 5:07 PM Stop: 5:07 PM Medication: Fentanyl Amount: 25 mcg Route: I.V. I, the attending physician, have reviewed and verified all procedure medications. Yes, all medications given per verbal order History/Risk Factors Hypertension: Yes Dyslipidemia: No Peripheral Arterial Disease (PAD): No Myocardial Infarction (NE): No Obesity: No Renal Disease: No Tobacco Use: Former Prior Interventions PCI: No CABG: Yes Valve Surgery: No Report Signatures Finalized by Dr Yudith Redmond MD [facility] on 02/11/2024 12:34 AM
[2024-02-08 16:57] LABS: Arterial Blood Gas Hematocrit 50.1 % (42-52); Blood Gas Operator Identificat MONRO; Blood Gas Sample Site PA; Blood Gas Sample Type Not specified; Carboxyhemoglobin 1.1 %THgb (0.4-20.1); HGB O2 Sat 49.9 % (95-100); Methemoglobin 0.2 % (0.4-1.5); Oxygen Device ROOM AIR; Total Hemoglobin 16.3 g/dL (14-18)
[2024-02-08 16:59] LABS: Arterial Blood Gas Hematocrit 48.3 % (42-52); Blood Gas Operator Identificat MONRO; Blood Gas Sample Site RA; Blood Gas Sample Type Not specified; HGB O2 Sat 50.2 % (95-100); Methemoglobin 0.2 % (0.4-1.5); Oxygen Device ROOM AIR; Total Hemoglobin 15.8 g/dL (14-18)
[2024-02-08 17:01] LABS: Arterial Blood Gas Hematocrit 48.9 % (42-52); Blood Gas Sample Site RV; Blood Gas Sample Type Not specified; Carboxyhemoglobin 1.1 %THgb (0.4-20.1); HGB O2 Sat 49.9 % (95-100); Methemoglobin 0.2 % (0.4-1.5)
[2024-02-08 17:02] LABS: Blood Gas Operator Identificat MONRO; Oxygen Device ROOM AIR
[2024-02-08 17:04] LABS: Arterial Blood Gas Hematocrit 49.7 % (42-52); Blood Gas Operator Identificat MONRO; Blood Gas Sample Site AO; Blood Gas Sample Type Not specified; Carboxyhemoglobin 1.1 %THgb (0.4-20.1); Methemoglobin < 0.0 % (0.4-1.5); Oxygen Device ROOM AIR; Total Hemoglobin 16.2 g/dL (14-18)
--- NOTE | 2024-02-08 17:34 | W.PM.OPSUD ---
Surgery/Procedure H&P Update DATE OF PROCEDURE: February 08, 2024 DATE H&P PERFORMED: 02/06/24 H&P UPDATE INFORMATION: I have reviewed H&P completed within last 30 days, I have examined patient prior to procedure and No changes to prior documentation PREOP DIAGNOSIS: Atherosclerotic heart disease PRIMARY INDICATION FOR PROCEDURE: Congestive heart failure/cardiomyopathy/ventricular arrhythmia PLANNED PROCEDURE: Left and right heart catheterization with coronary angiogram and possible PCI PATIENT REASSESSED PRIOR TO SEDATION, WITH NO CHANGE NOTED: Yes PHYSICAL EXAM: alert, oriented x 3, clear to auscultation bilaterally and regular rate & rhythm AIRWAY EVAL/ANESTHESIA PLAN: normal airway, see other exam findings, ASA IV, Monitored Anesthesia, Local Anesthesia, Risks, benefits & alternatives of sedation and/or procedure discussed and Patient agrees to continue as planned
[2024-02-08] MEDS: sodium chloride 0.9% 1,000 ML 50 ML IV (17:39)
--- NOTE | 2024-02-08 18:49 | ECG_ITS ---
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 Measurements Intervals [place] Rate: 110 P: 96 OH: 213 QRS: -78 QRSD: 169 T: 109 QT: 421 QTc: 571 Interpretive Statements ELECTRONIC VENTRICULAR PACEMAKER ABNORMAL RHYTHM ECG Compared to ECG 02/06/2024 18:09:18 No significant changes Electronically Signed On 02-08-2024 18:57:26 CDT by Yudith Redmond M.D. [id number]
[2024-02-08 19:15] LABS: Partial Thromboplastin Time 73.2 SECONDS (23.9-36.7)
--- NOTE | 2024-02-08 19:25 | PC.NURSE ---
Patient reports no symptoms, see stable blood pressure, patient continues to have frequent runs of what appears to be ventricular tachycardia. Pulses remain 2+ distal to femoral cath site. Site has no hemotoma formation or new bleeding. Both sheaths still in place, PTT pending for removal. NS is running at 75ml/hr per dr Redmond written order from golf course laborer. Patient has reported chest pain/soreness as 1-2 on pain scale. All education provided with patients at bedside.
[2024-02-08 22:46] LABS: Partial Thromboplastin Time 39.5 SECONDS (23.9-36.7)
--- NOTE | 2024-02-08 22:48 | PC.NURSE ---
Dr. Zurita called and wanted a lexiscan order to be placed. After talking to the charge nurse and pet house sitter they stated that this nurse should wait till the morning and call nuclear medicine because they believed that putting in this order was out of nursing scope of practise.
--- NOTE | 2024-02-08 23:12 | PC.NURSE ---
Dr. Zurita ordered for heparin subcut not to be given.
[2024-02-09] VITALS (44 sets, daily range): BP systolic 112–180; BP diastolic 70–132; PULSE 59–115; RESP 6–39; TEMP 36.2–36.4; O2SAT 88–100; BMI 22.5
--- NOTE | 2024-02-09 00:40 | PC.NURSE ---
Patient had the arterial femoral sheath removed at 2343 with no complications. Venous femoral sheath was removed at 2353 with no complications. Patient is resting and comfortable in bed.
--- NOTE | 2024-02-09 02:37 | PC.NURSE ---
[employer] report for pacemaker is in the patient's chart.
[2024-02-09] MEDS: heparin 5,000 unit/mL INJ 1 mL 5000 UNIT SUBCUT ×3 (02:42→17:48)
[2024-02-09] MEDS: piperacillin-tazobactam 3.375 GM in sodium chloride 0.9% (plus) 50 ML IV ×3 (02:42→17:48)
[2024-02-09 04:11] LABS: Basophils # 0.1 10^3/uL (0.0-0.1); Basophils % 0.8 %; Eosinophils # 0.1 10^3/uL (0.0-0.8); Eosinophils % 1.3 %; Hematocrit 44.2 % (37-53); Lymphocytes # 1.4 10^3/uL (0.8-4.8); Lymphocytes % 22.8 %; Mean Corpuscular HGB Conc 32.6 g/dL (30-55); Mean Corpuscular Hemoglobin 31.4 pg (27-33); Mean Corpuscular Volume 96.3 fl (82-101); Mean Platelet Volume 10.2 fL (7.4-10.4); Monocytes # 0.5 10^3/uL (0.2-0.9); Monocytes % 8.5 %; Neutrophils # 4.19 10^3/uL (1.8-7.7); Neutrophils % 66.3 %; Nucleated Red Blood Cells % 0 %; Platelet Count 173 10^3/cmm (157-399); Red Blood Count 4.59 10^6/uL (3.85-5.65); White Blood Count 6.32 10^3/uL (3.29-11.43)
[2024-02-09 04:35] LABS: Magnesium 1.6 mg/dL (1.7-2.3)
[2024-02-09 04:45] LABS: Alanine Aminotransferase 15 U/L (0-41); Albumin Level 3.2 g/dL (3.5-5.2); Alkaline Phosphatase 114 U/L (40-130); Anion Gap 19.8 (5-19); Aspartate Amino Transferase 19 U/L (0-40); Blood Urea Nitrogen 19 mg/dL (8-23); Carbon Dioxide 25 mmol/L (22-29); Chloride 98 mmol/L (98-107); Creatinine Clr Calc Pharmacy 41.9322; Globulin 1.8 g/dL (1.3-4.6); Glucose 311 mg/dL (65-115); NT Pro B Type Natriuretic Pept 1675 pg/mL (0-450); Osmolality Calculated 302 mOsm/kg (285-295); Potassium 3.8 mmol/L (3.5-5.1); Sodium 139 mmol/L (136-145); Total Bilirubin 0.7 mg/dL (0.15-1.2)
--- NOTE | 2024-02-09 06:27 | ECG_ITS ---
[facility] Test Date: 2024-02-09 Pat Name: Dar Ortega Department: Room: ICU05 Gender: Male Screen Machine Operator: : 1945 Requested By: Yudith Redmond Order Number: [id number] Kristina MD: Yudith Redmond M.D. Interpretive Statements NAME OF STUDY: LEXISCAN SESTAMIBI STRESS TEST INDICATION: Chest Pain, PROCEDURE: At the baseline, the EKG revealed normal sinus rhythm with a right bundle branch block pattern. Left axis deviation. Diffuse nonspecific T wave changes. The baseline heart was 66 bpm with a blood pressue of 128/95 mm of Hg Lexiscan was infused over a period of 20 seconds. A total of 0.4 milligrams of Lexiscan was infused. The stress phase was continued for a total of 5 minutes. Heart rate at the end of the stress phase was 67 bpm with a blood pressure 141/90 mm of Hg. The EKG at the peak infusion revealed no significant changes. Sestamibi was injected 20 seconds after the Lexiscan infusion. Heart rate at the end of the recovery phase was 68 bpm with a blood pressure of 133/93 mm of Hg. CONCLUSION: 1. No significant EKG changes with the LexiScan infusion 2. No LexiScan induced chest pain or cardiac arrhythmia 3. Normal blood pressure and heart rate response 4. Sestamibi/sestamibi perfusion scan pending; see separate report. Electronically Signed On 02-16-2024 7:58:58 CDT by Yudith Redmond M.D. [id number]
--- NOTE | 2024-02-09 06:28 | NMCV_ITS ---
NM jadiel perf SPECT r/s* [id number] Dar Ortega Age: 78 Gender: M : 1945 Exam Date: 02/09/2024 06:54 Ordering Phys: Yudith Redmond MD ([email or web address]) Technologist: ANTON Neves Exam Location: [facility] Indications: CHEST PAIN STRESS TEST Please [facility] IMAGE PROTOCOL Rest/Stress 1 Lexiscan Day Radiopharmaceutical Dose (mCi) Administration Site Administered by Rest: Tc-99m 10.9 IV ANTON Shaffer Sestamibi Stress:Tc-99m 32.4 IV ANTON Shaffer Sestamibi Rest: 09-Feb-2024 60 Discovery 630 Stress: 09-Feb-2024 30 Discovery 630 0.4mg Lexiscan. Supine position only as patient was unable to lay prone. SPECT RESULTS Technical Quality: Excellent Raw Data Analysis: Normal Image Corrections: No attenuation or motion correction applied Summed Stress Score: 0 Summed Rest Score: 4 Summed Difference Score: 0 PERFUSION FINDINGS Small area of slightly decreased tracer uptake was noted in the apical inferior, apical septal and LV apex. No significant reversibility was noted in this region FUNCTIONAL RESULTS (calculated via Gated SPECT) Stress Image LV EF (%): 31 Stress EDV (mL):171 TID: 0.89 Stress ESV (mL):118 FUNCTIONAL FINDINGS: Segmental wall motion analysis revealed diffuse hypokinesia of the left ventricle IMPRESSIONS 1. Myocardial perfusion imaging revealing a small area of persistent decreased tracer uptake in the LV apex, suggesting myocardial scarring versus attrition artifact. 2. Moderately diminished LV ejection fraction of 31%. 3. LV wall motion analysis revealing diffuse hypokinesia of the left ventricle. 4. Moderately dilated LV cavity with LV end-systolic volume of 118 mL Low probability for coronary ischemia, based on the above findings No similar previous studies are available for comparison Dr Yudith Redmond MD FAC (Electronically Signed) Final Date: 09 February 2024 15:47 S
--- NOTE | 2024-02-09 06:33 | PC.NURSE ---
[employer] Service Librarian television technician Dr. Rivas was contacted to see if they were able to put in lexiscan that Dr. Zurita had ordered last night. They stated that they were very upset that they were being woken up to put in an order on a patient they knew nothing about and that what is wrong with us . Nuclear medicine was contacted to see what this nurse could do about the order. They stated that they would call warehouse incentive selector and see what they could do. Lexiscan order was placed.
--- NOTE | 2024-02-09 07:24 | PC.NURSE ---
[id number] to [facility] for [employer]
[2024-02-09] MEDS: regadenoson 0.4 Mg/5 ml Syringe 0.400000000000000022 MG IVP (07:43)
[2024-02-09] MEDS: metoprolol succinate ER (24 HR) 50 mg Tablet PO (09:25)
[2024-02-09] MEDS: aspirin 81 mg EC Tablet PO (09:25)
[2024-02-09] MEDS: pantoprazole 40 mg SDV IVP ×2 (09:25→21:21)
[2024-02-09] MEDS: amlodipine 5 mg Tablet PO (09:25)
--- NOTE | 2024-02-09 09:26 | PC.NURSE ---
[employer] glitch during med pass. Nurse had to manually re scan medications for patient. Prudence Almonte notified and in unit.
[2024-02-09] MEDS: magnesium sulfate premix 2 GM/50 ML PIGGYBACK IV (10:34)
--- NOTE | 2024-02-09 12:04 | PM.PN ---
Subjective Subjective: 78-year-old male with exacerbation of CHF on coronary artery disease who was consulted for the possibility of acute cholecystitis. Patient was initiated on antibiotics. Has been doing very well, no abdominal pain no nausea no vomiting or any other symptoms concerning for acute cholecystitis. Vitals/I&O/Wt Last Vital Signs Temp 97.5 F L 02/09/24 07:40 Pulse 60 02/09/24 10:30 Resp 19 H 02/09/24 10:30 BP 120/94 02/09/24 10:30 Pulse Ox 97 02/09/24 10:30 O2 Del Method Room Air 02/09/24 10:30 02/08/24 02/09/24 02/09/24 22:59 06:59 14:59 Intake Total 50 / 292.816 673.094 / 965.910 100 / 100 Output Total 125 / 575 375 / 375 Balance -75 / -282.184 673.094 / 390.910 -275 / -275 Weight last 48 hrs Weight 166 lb 6 oz Physical Exam GI: OTHER: Abdomen is soft, nontender, nondistended. Data 02/09/24 03:30 02/09/24 03:30 A&P Assessment and plan (1) Acute cholecystitis: Plan Patient shows excellent progression from the general surgery standpoint. He can be advanced to regular diet as tolerated. I can follow up with him in 2 weeks in the clinic. All other management per medical ICU and cardiology team. Attestations Medical Necessity Statement*: Per medical team Coding Level of Care Code Acute Code for [facility] Diagnoses Acute cholecystitis K81.0
--- NOTE | 2024-02-09 14:10 | P.PN_ITS ---
Subjective 2 Subjective: Patient was seen this morning, denies any chest pain, no palpitations, during my examination he did have episodes of nonsustained V. tach, requiring resumption of his amiodarone drip, currently going 8.5, he denies any chest pain, no palpitations, Vitals/I&O/Wt Last Vital Signs Temp 97.5 F L 02/09/24 07:40 Pulse 60 02/09/24 14:00 Resp 22 H 02/09/24 14:00 BP 146/98 02/09/24 14:00 Pulse Ox 98 02/09/24 14:00 O2 Del Method Room Air 02/09/24 14:00 02/08/24 02/09/24 02/09/24 22:59 06:59 14:59 Intake Total 50 / 292.816 673.094 / 965.910 707.262 / 707.262 Output Total 125 / 575 375 / 375 Balance -75 / -282.184 673.094 / 390.910 332.262 / 332.262 Weight last 48 hrs Weight 75.466 kg Physical Exam 2 Const: COMMON NORMALS: no acute distress and patient oriented x3 Resp: COMMON NORMALS: normal respiratory effort, No retractions, No use of accessory muscles and clear to auscultation bilaterally AUSCULTATION: clear to auscultation bilaterally Cardio: COMMON NORMALS: regular rate, regular rhythm, S1 normal heart sound present and S2 normal heart sound present RATE: regular rate RHYTHM: r egular rhythm HEART SOUNDS: S1 normal heart sound present and S2 normal heart sound present GI: COMMON NORMALS: Normal to inspection, nondistended, normoactive bowel sounds present and non-tender Extremity: COMMON NORMALS: no pedal edema Neuro: COMMON NORMALS: patient oriented x3 Psych: COMMON NORMALS: mental status grossly normal Data 02/09/24 03:30 02/09/24 03:30 A&P Assessment and plan (1) Chest pain: Qualifiers: Chest pain type: precordial pain Qualified Code(s): R07.2 - Precordial pain (2) CHF exacerbation: Qualifiers: Heart failure type: systolic Qualified Code(s): I50.23 - Acute on chronic systolic (congestive) heart failure (3) Nonsustained ventricular tachycardia: (4) History of coronary artery bypass graft x 3: (5) Bundle branch block, left: (6) History of pacemaker: (7) GERD (gastroesophageal reflux disease): (8) Acute cholecystitis: Plan Chest pain ? Sounds cardiac in nature ? Has a history of CABG x 3 ?Initial troponin 33, with a 120-minute of 34.6 down to 1.16, EKG no acute ST-T wave changes ? Plan ? Aspirin 325 ? Atorvastatin, ? Continue home beta-yamilex ? Nitro as needed for chest pain ? CONCLUSIONS Severe diffuse hypokinesis of the left ventricular ejection fraction of 22%. Moderate concentric left-ventricular hypertrophy. Normal RV size and ejection fraction. Moderate to severely atrium. Increased right atrial size. Moderately dilated left atrium with an end-systolic volume index of 57 mL/m squared. Mild-moderate mitral valve regurgitation. Gdln-[id number] aortic valve regurgitation. Moderate tricuspid valve regurgitation. Estimated pulmonary artery peak systolic pressure 27 mmHg. Moderate pulmonary valve regurgitation. There is no pericardial effusion. There are no intracardiac masses. No similar previous studies are available for comparison Status post coronary angiography ? Undergoing stress testing ? Full code ? Heparin for DVT prophylaxis Nonsustained V. tach ? Initial EKG shows ventricular paced rhythm, During my initial discussion with patient, at times during my interview, patient would have episodes of nonsustained V. tach, at other times it would look like A-fib, heart rates as high as 120s Nonsustained V. tach, the most amount of beats that I counted was 20 beats of nonsustained V. tach ? He denies any chest pain, no palpitations currently -Patient has been in talks with cardiology about placing a ICD for abnormal rhythm -Review of his pacemaker check he has had a couple episodes of nonsustained V. tach over the last few years, last episode I can see is in November ? Potassium within normal limits, magnesium levels pending ? Spoke to cardiology, Dr. Redmond will consult ? on amiodarone drip for now ? Interrogate pacemaker Shortness of breath -Concerning for CHF exacerbation given patient's symptomatology elevated BNP over 11,000, -3L overnight - shortness of breath has improved, creatinine 1.5 hold Lasix -Monitor clinically Epigastric discomfort, acid reflux, acute cholecystitis Gallbladder ultrasound ?Gallbladder: Distended gallbladder with gallbladder wall thickening measuring 4 mm. Gallstones in the gallbladder. Acute cholecystitis should be suspected. ? Plan ? Will start patient on Zosyn, clears., hold off on IV fluids History of CABG History of CHF last EF was 45% History of pseudomyxoma peritonei status post surgery Patient is full code Heparin for DVT prophylaxis ? Monitor in ICU given nonsustained V. tach episode chest pain shortness of breath Plan for today cardiac stress testing, await cardiology's recommendations, replace magnesium Attestations 2 Medical Necessity Statement*: Patient requires hospitalization for nonsustained V. tach, undergoing stress testing Diagnoses Precordial pain R07.2 Chest pain type: precordial pain Acute on chronic systolic congestive heart failure I50.23 Heart failure type: systolic Nonsustained ventricular tachycardia I47.29 History of coronary artery bypass graft x 3 Z95.1 Bundle branch block, left I44.7 History of pacemaker Z95.0 GERD (gastroesophageal reflux disease) K21.9 Acute cholecystitis K81.0
--- NOTE | 2024-02-09 15:10 | PC.NURSE ---
VTach Multiple runs of PVCs/non sustained VTach with rates in 130s. Patient asymptomatic. Dr. Agrawal notified. Order to continue to monitor.
[2024-02-09] MEDS: amiodarone 200 mg Tablet 400 MG PO (17:48)
--- NOTE | 2024-02-09 19:07 | P.PN_ITS ---
Subjective 2 Subjective: Patient had a Myocardial perfusion imaging today. There is no significant ischemia, based on the perfusion scan. Medications: Medication Review Details: Current Medications Acetaminophen (Acetaminophen 325 Mg Tablet) 650 mg PO Q6H PRN PRN Reason: Mild/Mod Pain Or Temp >/= 101 Al Hydrox/Mg Hydrox/Simethicone (Zcvh-Keo-Pstvihqrk-Karyna 30 Ml Udc) 30 ml PO Q15M PRN PRN Reason: INDIGESTION Aminophylline (Aminophylline 25 Mg/Ml Sdv 10 Ml) 25 mg IVP Q2M PRN PRN Reason: see dose instructions Stop: 02/10/24 06:27 Amiodarone HCl (Amiodarone 200 Mg Tablet) 400 mg PO BID [facility] Last Admin: 02/09/24 17:48 Dose: 400 mg Amlodipine Besylate (Amlodipine 5 Mg Tablet) 5 mg PO DAILY [facility] Last Admin: 02/09/24 09:25 Dose: 5 mg Aspirin (Aspirin 81 Mg Ec Tablet) 81 mg PO DAILY [facility] Last Admin: 02/09/24 09:25 Dose: 81 mg Atropine Sulfate (Atropine 1 Mg/Ml Sdv 1 Ml) 0.5 mg IVP PRN PRN PRN Reason: Symptomatic bradycardia Heparin Sodium (Porcine) (Heparin 5,000 Unit/Ml Inj 1 Ml) 5,000 unit SUBCUT Q8H [facility] Last Admin: 02/09/24 17:48 Dose: 5,000 unit Amiodarone HCl/Dextrose (Nexterone) 360 mg in 200 mls @ 0 mls/hr IV .Q0M [facility]; Protocol Last Admin: 02/09/24 12:41 Dose: 0.5 mg/min, 16.67 mls/hr Piperacillin Sod/Tazobactam (Sod 3.375 gm/ Sodium Chloride) 50 mls @ 12.5 mls/hr IV Q8H [facility]; Protocol Last Admin: 02/09/24 17:48 Dose: 12.5 mls/hr Magnesium Hydroxide (Magnesium Hydroxide 30 Ml Udc) 30 ml PO DAILY PRN PRN Reason: CONSTIPATION Metoclopramide HCl (Metoclopramide 5 Mg/Ml Sdv 2 Ml) 5 mg IVP Q6H PRN PRN Reason: NAUSEA AND VOMITING Metoprolol Succinate (Metoprolol Succinate Er (24 Hr) 50 Mg Tablet) 50 mg PO DAILY [facility] Last Admin: 02/09/24 09:25 Dose: 50 mg Morphine Sulfate (Morphine 4 Mg/Ml Sdv 1 Ml) 2 mg IVP Q4H PRN PRN Reason: SEVERE PAIN Naloxone HCl (Naloxone 0.4 Mg/Ml Sdv) 0.1 mg IVP Q2M PRN PRN Reason: RESPIRATORY RATE < 8/MIN Nitroglycerin (Nitroglycerin 0.4 Mg Sublingual Tablet) 0.4 mg SUBLINGUAL Q5M PRN PRN Reason: chest pain Ondansetron HCl (Ondansetron 2 Mg/Ml Sdv 2 Ml) 4 mg IVP Q8H PRN PRN Reason: vomiting, or N/V if npo Pantoprazole Sodium (Pantoprazole 40 Mg Sdv) 40 mg IVP Q12H [facility] Last Admin: 02/09/24 09:25 Dose: 40 mg Temazepam (Temazepam 15 Mg Capsule) 15 mg PO BEDTIME PRN PRN Reason: INSOMNIA Vitals/I&O/Wt Last Vital Signs Temp 97.5 F L 02/09/24 07:40 Pulse 64 02/09/24 18:00 Resp 19 H 02/09/24 18:00 BP 169/75 02/09/24 18:00 Pulse Ox 98 02/09/24 18:00 O2 Del Method Room Air 02/09/24 18:00 02/09/24 02/09/24 02/09/24 06:59 14:59 22:59 Intake Total 673.094 / 965.910 707.262 / 707.262 240 / 947.262 Output Total 375 / 375 Balance 673.094 / 390.910 332.262 / 332.262 240 / 572.262 Weight last 48 hrs Weight 166 lb 6 oz Physical Exam 2 Narrative: GENERAL: The patient is alert and oriented times three. Not in any acute distress. HEENT: No significant pallor, icterus or lymphadenopathy.Oral cavity: There are no mucous membrane lesions. NECK: Trachea appears to be central. No masses noted. No JVD or thyromegaly appreciated. RESPIRATORY: Chest is symmetrical. No intercostals muscle retraction or any accessory muscle activation. There is no chest wall tenderness. Breath sounds are heard bilaterally. No rales or rhonchi heard. No evidence of any consolidation. BREASTS: Deferred. HEART: The heart sounds are normal. No S3 or S4. Systolic murmur grade 4 or 6 in the left sternal border. Early diastolic murmur grade 3 or 6 in the second aortic area. No pericardial rub ABDOMEN: No vessel pulsations or distention. No tenderness. No organomegaly appreciated. Bowel sounds are normally heard. : Deferred. RECTAL: Deferred. LYMPHATIC: No lymphadenopathy noted in the neck. EXTREMITIES: No edema or cyanosis. No hematoma bleeding of the right groin. MUSCULOSKELETAL: No acute joint deformities or swelling SKIN: There are no significant rashes or ecchymosis NEUROPSYCHIATRIC: The patient is alert and oriented x3. Appears to be in a good mood. No tremors or rigidity noted. Data 02/09/24 03:30 02/09/24 03:30 A&P Assessment and plan (1) History of coronary artery bypass graft x 3: Patient had a cardiac catheter yesterday. 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 The venous graft to the RCA was completely occluded. The rampart RCA was found to have mild diffuse disease. The circumflex artery also was found to have mild diffuse disease. LAD was found to have around 60 to 70% mid lesion right after the aneurysmal segment. 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 Patient underwent a Myocardial perfusion imaging today. Was found no significant ischemia. The implication of the test findings were discussed with the patient in detail which is understood well (2) Essential hypertension: Patient blood pressures seems to be getting under control. May continue on the current medications. (3) History of pacemaker: The pacemaker function appears to be appropriate. Patient may benefit from CENTRAL STERILIZATION TECHNICIAN. (4) Nonsustained ventricular tachycardia: Possible related to the ventricular dysfunction. I may switch the IV amiodarone to p.o. (5) Acute cholecystitis: I discussed with Dr. Agrawal. The gallbladder thickening was thought to be related to congestive hepatopathy. Patiently currently he is remaining afebrile for 48 hours. It was thought to be appropriate to go ahead with a cardiac workup at this point (6) Chronic atrial fibrillation: The patient is willing to try the anticoagulation at this time. I may start him on Eliquis 2.5 mg p.o. twice daily in view of his abnormal kidney function and the age (7) Acute on chronic systolic heart failure: The patient's LV systolic dysfunction, could be related to arrhythmia. Currently the heart failure is compensated. Plan I discussed with Dr. Munoz at the [facility]. This patient may benefit from upgrading the pacemaker to a CENTRAL STERILIZATION TECHNICIAN and also possible ablation for the atrial fibrillation. Also may need to consider defibrillator. If he continues to remain stable, may be discharged home tomorrow. Dr. Munoz's office will make arrangements to have him evaluated for further management at the [facility], as an outpatient Attestations 2 Medical Necessity Statement*: Patient may be transferred to telemetry for Coding Level of Care Code 70128 Diagnoses History of coronary artery bypass graft x 3 Z95.1 Essential hypertension I10 History of pacemaker Z95.0 Nonsustained ventricular tachycardia I47.29 Acute cholecystitis K81.0 Chronic atrial fibrillation I48.20 Acute on chronic systolic heart failure I50.23
[2024-02-09] MEDS: apixaban 5 mg Tablet 2.5 MG PO (21:21)
[2024-02-10] VITALS (26 sets, daily range): BP systolic 102–131; BP diastolic 63–86; PULSE 59–85; RESP 12–34; TEMP 36.6; O2SAT 91–99
[2024-02-10] MEDS: piperacillin-tazobactam 3.375 GM in sodium chloride 0.9% (plus) 50 ML IV (02:41)
[2024-02-10 05:09] LABS: Basophils % 0.4 %; Eosinophils # 0.1 10^3/uL (0.0-0.8); Eosinophils % 1.1 %; Hematocrit 47.4 % (37-53); Lymphocytes # 1.4 10^3/uL (0.8-4.8); Lymphocytes % 19.4 %; Mean Corpuscular HGB Conc 32.7 g/dL (30-55); Mean Corpuscular Hemoglobin 31.4 pg (27-33); Mean Platelet Volume 10.7 fL (7.4-10.4); Monocytes # 0.6 10^3/uL (0.2-0.9); Monocytes % 7.7 %; Neutrophils # 5.09 10^3/uL (1.8-7.7); Neutrophils % 71.1 %; Nucleated Red Blood Cells % 0 %; Platelet Count 163 10^3/cmm (157-399); Red Blood Count 4.94 10^6/uL (3.85-5.65); Red Cell Distribution Width 15.9 % (12.1-15.1); White Blood Count 7.16 10^3/uL (3.29-11.43)
[2024-02-10 05:29] LABS: Anion Gap 14.7 (5-19); Blood Urea Nitrogen 22 mg/dL (8-23); Calcium 8.8 mg/dL (8.5-10.5); Carbon Dioxide 27 mmol/L (22-29); Chloride 98 mmol/L (98-107); Creatinine Clr Calc Pharmacy 39.9721; Glucose 94 mg/dL (65-115); Osmolality Calculated 285 mOsm/kg (285-295); Potassium 3.7 mmol/L (3.5-5.1); Sodium 136 mmol/L (136-145)
[2024-02-10 05:32] LABS: Magnesium 2.1 mg/dL (1.7-2.3)
[2024-02-10] MEDS: amlodipine 5 mg Tablet PO (09:29)
[2024-02-10] MEDS: metoprolol succinate ER (24 HR) 50 mg Tablet PO (09:29)
[2024-02-10] MEDS: amiodarone 200 mg Tablet 400 MG PO (09:29)
[2024-02-10] MEDS: pantoprazole 40 mg SDV IVP (09:29)
[2024-02-10] MEDS: aspirin 81 mg EC Tablet PO (09:29)
[2024-02-10] MEDS: apixaban 5 mg Tablet 2.5 MG PO (09:33)
--- NOTE | 2024-02-10 11:02 | P.PN_ITS ---
Subjective 2 Subjective: 78-year-old male with history of coronar y artery disease and heart failure who is admitted to the hospital with chest pain and CHF exacerbation, he also was incidentally found to have thickened gallbladder wall on ultrasound and CT scan which was concerning for the possibility of acute cholecystitis, no other significant symptoms. Patient has been doing well over the last and 4 hours tolerating diet no abdominal pain no nausea no vomiting. Vitals/I&O/Wt Last Vital Signs Temp 97.8 F 02/10/24 06:00 Pulse 60 02/10/24 09:00 Resp 19 H 02/10/24 09:00 BP 121/63 02/10/24 09:00 Pulse Ox 95 02/10/24 09:00 O2 Del Method Room Air 02/10/24 09:00 02/09/24 02/10/24 02/10/24 22:59 06:59 14:59 Intake Total 442.531 / 1149.793 50 / 1199.793 360 / 360 Output Total 125 / 500 225 / 725 300 / 300 Balance 317.531 / 649.793 -175 / 474.793 60 / 60 Weight last 48 hrs Weight 166 lb 6.4 oz Weight 166 lb 6 oz Physical Exam 2 GI: OTHER: Abdominal exam is benign abdomen soft nontender nondistended. Data 02/10/24 04:27 02/10/24 04:27 A&P Assessment and plan (1) Acute cholecystitis: Plan Excellent progression from the GI standpoint, patient tolerating diet, not having any abdominal pain, vital signs are laboratory workup are unremarkable from the general surgery standpoint. Plan will be to follow-up in 2 weeks in my clinic, at that time we will plan to repeat ultrasound. I suspect that the findings in the gallbladder were most likely incidental rather than actual inflammation of the gallbladder causing symptoms. We will discuss the need of surgery once we meet in the clinic. In the interim general surgery signs off, all other management per primary team and also cardiology. Attestations 2 Medical Necessity Statement*: Per medical team Coding Level of Care Code Acute Code for [facility] Diagnoses Acute cholecystitis K81.0
--- NOTE | 2024-02-10 12:28 | P.DS_ITS ---
Discharge Providers Date of Admission: 02/06/24 18:25 Date of Discharge: February 10, 2024 Attending Provider at Admission: Mani Agrawal MD Attending Provider at Discharge: Mani Agrawal MD Primary Care Provider: LILIANA Hinkle Diagnoses at Discharge Discharge Diagnosis (1) Acute cholecystitis: Status: Acute Reason for Visit 2 Reason for Visit: chest pains, sob Hospital Course Hospital Course Dar Ortega is a 78 year old male with a past medical history of pacemaker placement, plans on possible ICD placement in the near future, history of CABG x 3, history of systolic CHF EF of 45%, history of pseudomyxoma peritonei, status status post surgical resection, radiation, who presents [facility] due to a few months history of shortness of breath, chest pain, epigastric discomfort. Patient tells me that over the last few months, he is felt increasing shortness of breath, increased shortness of breath with exertion, orthopnea, paroxysmal nocturnal dyspnea, he tells me that what prompted him to come to the hospital is that he was having now chest discomfort anterior chest discomfort, with his shortness of breath, nonradiating, no lightness, dizziness, no diaphoresis, he has never experienced chest pain like this before, he also had complaints of epigastric discomfort, currently alert and oriented x 4, following all commands, family numbers at bedside, also tells me that he has never had a history of GERD, but recently has been complaining of epigastric discomfort, acid reflux which is unusual for him Patient was admitted to [facility] for chest pain, sounds cardiac in nature with history of CABG x 3, managed on aspirin, statin, beta-yamilex, blood thinners, echocardiogram showed severe diffuse hypokinesis of the left ventricle and EF of 22%, cardiology was consulted underwent cardiac catheterization 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 LAD was found to have around 60 to 70% mid lesion right after the aneurysmal segment. 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 Medically managed on aspirin, statin, Eliquis, beta-yamilex, with close follow-up with cardiology as outpatient For his nonsustained ventricular tachycardia, chronic A-fib, he was managed initially with amiodarone drip, heparin drip, cardiology consulted as above, EF 22%, likely related to ventricular dysfunction, nonetheless cardiology spoke to Dr. Munoz at [facility] in [place], discussed upgrade to DIAMOND SAWER with current pacemaker, also possible ablation for atrial fibrillation, his office will make arrangements to reach out to patient, follow-up as outpatient There was concerns for acute cholecystitis during his hospitalization, general surgery was consulted, managed on broad-spectrum antibiotic therapy, will be discharged on Augmentin with close follow-up with general surgery as outpatient, Physical Exam Const: COMMON NORMALS: no acute distress and patient oriented x3 Resp: COMMON NORMALS: normal respiratory effort, No retractions, No use of accessory muscles and clear to auscultation bilaterally AUSCULTATION: clear to auscultation bilaterally Cardio: COMMON NORMALS: regular rate, regular rhythm, S1 normal heart sound present and S2 normal heart sound present RATE: regular rate RHYTHM: regular rhythm HEART SOUNDS: S1 normal heart sound present and S2 normal heart sound present GI: COMMON NORMALS: Normal to inspection, nondistended, normoactive bowel sounds present and non-tender Extremity: COMMON NORMALS: no pedal edema Neuro: COMMON NORMALS: patient oriented x3 Psych: COMMON NORMALS: mental status grossly normal Discharge Data Studies Completed and Pending Completed Studies During Hospitalization Category Date Time Status CT abdomen pelvis w con* [id number] Stat Cat Scan 02/06/24 13:36 Completed Cardiac Stress Test MIBI [Sestamibi Stress Test Request Exams 02/09/24 06:27 Draft ] Routine XR chest 1V portable [id number] Routine Exams 02/07/24 07:00 Completed XR chest 1V portable [id number] Urgent Exams 02/06/24 12:14 Completed NM jadiel perf SPECT r/s* [id number] Routine Nuc Med 02/09/24 06:28 Completed CV. echo complete* [id number] Stat Ultrasound 02/06/24 18:26 Completed US gall bladder [id number] Stat Ultrasound 02/06/24 15:38 Completed Pending at discharge Category Date Time Status INTELLIGENCE ANALYST request for service Routine Exams 02/08/24 16:00 Taken Basic Metabolic Panel AM LABS Lab 02/11/24 04:00 Ordered Magnesium AM LABS Lab 02/11/24 04:00 Ordered Magnesium AM LABS Lab 02/12/24 04:00 Ordered Radiology Impressions Gallbladder Ultrasound 02/06/24 15:38 IMPRESSION: 1. High suspicion of acute cholecystitis. 2. Right pleural effusion. Laboratory Results WBC 7.16 10^3/uL (3.29-11.43) 02/10/24 04: RBC 4.94 10^6/uL (3.85-5.65) 02/10/24 04:27 Hgb 15.50 g/dL (11.27-16.99) 02/10/24 04: Hct 47.4 % (37-53) 02/10/24 04: MCV 96.0 fl (82-101) 02/10/24 04: MCH 31.4 pg (27-33) 02/10/24 04: MCHC 32.7 g/dL (30-55) 02/10/24 04: RDW 15.9 % (12.1-15.1) H 02/10/24 04:27 Plt Count 163 10^3/cmm (157-399) 02/10/24 04: MPV 10.7 fL (7.4-10.4) H 02/10/24 04: Neut % (Auto) 71.1 % 02/10/24 04: Lymph % (Auto) 19.4 % 02/10/24 04:27 [place] % (Auto) 7.7 % 02/10/24 04: Eos % (Auto) 1.1 % 02/10/24 04: Baso % (Auto) 0.4 % 02/10/24 04: Neut # (Auto) 5.09 10^3/uL (1.8-7.7) 02/10/24 04:27 Lymph # (Auto) 1.4 10^3/uL (0.8-4.8) 02/10/24 04: [place] # (Auto) 0.6 10^3/uL (0.2-0.9) 02/10/24 04: Eos # (Auto) 0.1 10^3/uL (0.0-0.8) 02/10/24 04: Baso # (Auto) 0.0 10^3/uL (0.0-0.1) 02/10/24 04: Nucleated RBC % (auto) 0 % 02/10/24 04:27 Nucleated RBCs # 0.0 /100WBC 02/10/24 04:27 PT 16.40 SECONDS (12.1-14.9) H 02/06/24 19:42 INR 1.28 (0.8-1.2) H 02/06/24 19:42 APTT 39.5 SECONDS (23.9-36.7) H 02/08/24 21:50 D-Dimer 1.29 ug/mLFEU (0-0.59) H 02/06/24 19:42 Specimen Type Not specified 02/08/24 16:49 Sample Site Ao 02/08/24 16:49 Elvin Test N/a 02/08/24 16:49 A-a O2 Gradient Not Reportable 02/08/24 16:49 Hematocrit 49.7 % (42-52) 02/08/24 16:49 Hgb O2 Saturation 92.0 % (95-100) L 02/08/24 16:49 Carboxyhemoglobin 1.1 %THgb (0.4-20.1) 02/08/24 16:49 Methemoglobin < 0.0 % (0.4-1.5) L 02/08/24 16:49 Total Hemoglobin 16.2 g/dL (14-18) 02/08/24 16:49 O2 Delivery Device Room air 02/08/24 16:49 FiO2 21.0 % 02/08/24 16:49 Stretcher And Drier ID [place] 02/08/24 16:49 Sodium 136 mmol/L (136-145) 02/10/24 04:27 Potassium 3.7 mmol/L (3.5-5.1) 02/10/24 04:27 Chloride 98 mmol/L (98-107) 02/10/24 04:27 Carbon Dioxide 27 mmol/L (22-29) 02/10/24 04:27 Anion Gap 14.7 (5-19) 02/10/24 04:27 BUN 22 mg/dL (8-23) 02/10/24 04:27 Creatinine 1.6 mg/dL (0.7-1.2) H 02/10/24 04:27 GFR Calculation Not Reportable 02/10/24 04:27 Glucose 94 mg/dL (65-115) 02/10/24 04:27 Estimat Average Glucose 126 02/06/24 20:12 Hemoglobin A1c 6.0 % (4.0-6.0) 02/06/24 20:12 Calculated Osmolality 285 mOsm/kg (285-295) 02/10/24 04:27 Lactic Acid 1.3 mmol/L (0.5-2.2) 02/06/24 20:12 Calcium 8.8 mg/dL (8.5-10.5) 02/10/24 04:27 Phosphorus 3.3 mg/dL (2.5-4.5) 02/07/24 03:55 Magnesium 2.1 mg/dL (1.7-2.3) 02/10/24 04:27 Total Bilirubin 0.7 mg/dL (0.15-1.2) 02/09/24 03:30 Direct Bilirubin 0.40 mg/dL (0.00-0.30) H 02/09/24 03:30 AST 19 U/L (0-40) 02/09/24 03:30 ALT 15 U/L (0-41) 02/09/24 03:30 Alkaline Phosphatase 114 U/L (40-130) 02/09/24 03:30 Troponin T Baseline 33 ng/L (0-15) H 02/06/24 12:52 Troponin T 120 Minute 34.16 ng/L (0-15) H 02/06/24 15:10 Delta Troponin T 1.16 ABS# (0-10) 02/06/24 15:10 Troponin T Hi Sens 6Hr 30.26 ng/L (0-15) H 02/06/24 19:42 Troponin T Hi Sens 6Hr Delta -2.74 ng/L (0-12) L 02/06/24 19:42 C-Reactive Protein 3.0 mg/L (0.0-4.9) 02/09/24 03:30 NT-Pro-B Natriuret Pep 1675 pg/mL (0-450) H 02/09/24 03:30 Total Protein 5.0 g/dL (6.6-8.7) L 02/09/24 03:30 Albumin 3.2 g/dL (3.5-5.2) L 02/09/24 03:30 Globulin 1.8 g/dL (1.3-4.6) 02/09/24 03:30 Triglycerides 129 mg/dL (0-150) 02/06/24 19:42 Cholesterol 166 mg/dL (0-200) 02/06/24 19:42 LDL Cholesterol, Calc 94 mg/dL (50-129) 02/06/24 19:42 HDL Cholesterol 46 mg/dL (60-100) L 02/06/24 19:42 LDL/HDL Ratio 2.04 RATIO (0.00-3.22) 02/06/24 19:42 Cholesterol/HDL Ratio 3.61 mg/dL (1.0-5.00) 02/06/24 19:42 Procalcitonin 0.07 ng/mL (0-0.5) 02/06/24 15:10 TSH 1.95 uIU/mL (0.27-4.20) 02/06/24 19:42 Vitals Last Vital Signs Temp 97.8 F 02/10/24 06:00 Pulse 68 02/10/24 12:00 Resp 12 02/10/24 12:00 BP 112/82 02/10/24 12:00 Pulse Ox 95 02/10/24 12:00 O2 Del Method Room Air 02/10/24 11:00 Discharge Plan Discharge Patient Disposition: Home Condition: Stable Prescriptions: New amlodipine 5 mg Tablet 5 mg PO DAILY 30 Days Qty: 30 0RF amoxicillin-pot clavulanate 875-125 mg Tablet 1 tab PO BID 5 Days Qty: 10 0RF Eliquis 5 mg Tablet 2.5 mg PO BID@0900,2100 30 Days Qty: 60 0RF aspirin 81 mg Tablet,Delayed Release (Dr/Ec) 81 mg PO DAILY 30 Days Qty: 30 0RF amiodarone 400 mg tablet 400 mg PO BID 30 Days Qty: 60 0RF Rx Instructions: Take 1 tab a day twice daily for 7 days, then 1 tab a day Continued nitroglycerin 0.4 mg tablet, sublingual 0.4 mg sublingual Q5M PRN (Reason: chest pain) Qty: 20 0RF Rx Instructions: do not exceed 3 doses per episode tramadol 50 mg tablet 50 mg PO BID PRN (Reason: pain) 7 Days Qty: 14 0RF trazodone 50 mg tablet 50 mg PO BEDTIME PRN (Reason: Sleep) metoprolol succinate 50 mg tablet extended release 24 hr 50 mg PO DAILY mirtazapine 15 mg tablet 15 mg PO DAILY tizanidine 4 mg capsule 4 mg PO DAILY Held furosemide 40 mg tablet 20 mg PO DAILY PRN (Reason: Edema) Hold Instructions: Resume on 02/13/24. Discontinued spironolactone 25 mg tablet 12.5 mg PO DAILY Discharge Orders: Discharge Order (Routine); Ordered 02/10/24 Ordered By: Mani Agrawal Referrals: Avelino Kumar MD [Physician] - 2 weeks Yudith Redmond MD [Physician] - 1 month (after visit with Liz Waters APN NURSE will schedule appointment with ) Gray Butts FNP [Primary Care Provider] - 02/16/24 1:20 pm Liz Waters FNP [Nurse Practitioner] - 1-3 days (We have notified your physician's clinic of the need for a follow-up appointment to be scheduled. If you have not heard from them within the next 2 business days, please call them directly. [facility] will call you with available appointment for 1-3 days ,hospitalist wants you to see Nurse DAVIDE nurse 1-3 days next week. after follow up with Liz Waters APN nurse will schedule with Cem) Discharge Diet: Cardiac Discharge Activity: Resume usual activity Patient Instructions: Aspirin (By mouth), Amoxicillin (By mouth) (Amoxicot, Amoxil, Amoxil Pediatric, Trimox), Amiodarone (By mouth) (Cordarone, Pacerone), Amlodipine (By mouth), Apixaban (By mouth) (Eliquis), Heart Failure (DC), A-fib (Atrial Fibrillation) (DC), CHF Stoplight, Chest Pain Stoplight, Opioid Safety, Post Angiogram Home Care Instructions Activity Restrictions/Additional Instructions: -if you have any chest pain go to emergency room -please follow up with electrophysiology at [facility] next week, they will call you -see liz waters next week ? Adhere to a low-fat diet, Exa?monitor for right upper quadrant pain if so go to emergency room ? Follow-up general surgery ? Dr. Munoz from [facility] reach out to you Discharge Attestations Time Spent in Discharge Care*: greater than 30 min Quality Metrics Clinical Quality Measures [ No reported AMI, CVA or VTE this stay] Coding Level of Care Code 81252 Total time (in minutes) for Discharge: 45 Diagnoses Acute cholecystitis K81.0
--- NOTE | 2024-02-10 12:56 | PC.SOCIAL ---
IMM Update Pg. 2 of IMM updated and copy provided.
--- NOTE | 2024-02-10 13:20 | PC.SOCIAL ---
IMM Updated Updated pt on IMM. No questions voiced. Provided pt a copy. Initialed, dated, & timed copy in chart.
--- NOTE | 2024-02-10 14:45 | P.PN_ITS ---
Subjective 2 Subjective: The patient is feeling okay with no chest pain or shortness of breath. Vital signs are remaining stable. Continues to be in atrial fibrillation with occasional PVCs on the monitor. Medications: Medication Review Details: Current Medications Acetaminophen (Acetaminophen 325 Mg Tablet) 650 mg PO Q6H PRN PRN Reason: Mild/Mod Pain Or Temp >/= 101 Al Hydrox/Mg Hydrox/Simethicone (Xabn-Vmz-Vdohlwxwq-Karyna 30 Ml Udc) 30 ml PO Q15M PRN PRN Reason: INDIGESTION Amiodarone HCl (Amiodarone 200 Mg Tablet) 400 mg PO BID [facility] Last Admin: 02/10/24 09:29 Dose: 400 mg Amlodipine Besylate (Amlodipine 5 Mg Tablet) 5 mg PO DAILY [facility] Last Admin: 02/10/24 09:29 Dose: 5 mg Amoxicillin/Clavulanate Potassium (Amoxicillin-Clav 875-125 Mg Tablet) 1 tab PO BID [facility]; Protocol Apixaban (Apixaban 5 Mg Tablet) 2.5 mg PO BID@0900,2100 [facility] Last Admin: 02/10/24 09:33 Dose: 2.5 mg Aspirin (Aspirin 81 Mg Ec Tablet) 81 mg PO DAILY [facility] Last Admin: 02/10/24 09:29 Dose: 81 mg Atropine Sulfate (Atropine 1 Mg/Ml Sdv 1 Ml) 0.5 mg IVP PRN PRN PRN Reason: Symptomatic bradycardia Magnesium Hydroxide (Magnesium Hydroxide 30 Ml Udc) 30 ml PO DAILY PRN PRN Reason: CONSTIPATION Metoclopramide HCl (Metoclopramide 5 Mg/Ml Sdv 2 Ml) 5 mg IVP Q6H PRN PRN Reason: NAUSEA AND VOMITING Metoprolol Succinate (Metoprolol Succinate Er (24 Hr) 50 Mg Tablet) 50 mg PO DAILY [facility] Last Admin: 02/10/24 09:29 Dose: 50 mg Morphine Sulfate (Morphine 4 Mg/Ml Sdv 1 Ml) 2 mg IVP Q4H PRN PRN Reason: SEVERE PAIN Naloxone HCl (Naloxone 0.4 Mg/Ml Sdv) 0.1 mg IVP Q2M PRN PRN Reason: RESPIRATORY RATE < 8/MIN Nitroglycerin (Nitroglycerin 0.4 Mg Sublingual Tablet) 0.4 mg SUBLINGUAL Q5M PRN PRN Reason: chest pain Ondansetron HCl (Ondansetron 2 Mg/Ml Sdv 2 Ml) 4 mg IVP Q8H PRN PRN Reason: vomiting, or N/V if npo Pantoprazole Sodium (Pantoprazole 40 Mg Sdv) 40 mg IVP Q12H [facility] Last Admin: 02/10/24 09:29 Dose: 40 mg Temazepam (Temazepam 15 Mg Capsule) 15 mg PO BEDTIME PRN PRN Reason: INSOMNIA Vitals/I&O/Wt Last Vital Signs Temp 97.8 F 02/10/24 06:00 Pulse 68 02/10/24 13:26 Resp 12 02/10/24 13:26 BP 112/82 02/10/24 13:26 Pulse Ox 95 02/10/24 13:26 O2 Del Method Room Air 02/10/24 13:00 02/09/24 02/10/24 02/10/24 22:59 06:59 14:59 Intake Total 442.531 / 1149.793 50 / 1199.793 600 / 600 Output Total 125 / 500 225 / 725 550 / 550 Balance 317.531 / 649.793 -175 / 474.793 50 / 50 Weight last 48 hrs Weight 166 lb 6.4 oz Weight 166 lb 6 oz Physical Exam 2 Narrative: GENERAL: The patient is alert and oriented times three. Not in any acute distress. HEENT: No significant pallor, icterus or lymphadenopathy.Oral cavity: There are no mucous membrane lesions. NECK: Trachea appears to be central. No masses noted. No JVD or thyromegaly appreciated. RESPIRATORY: Chest is symmetrical. No intercostals muscle retraction or any accessory muscle activation. There is no chest wall tenderness. Breath sounds are heard bilaterally. No rales or rhonchi heard. No evidence of any consolidation. BREASTS: Deferred. HEART: The heart sounds are normal. No S3 or S4. Systolic murmur grade 4 or 6 in the left sternal border. Early diastolic murmur grade 3 or 6 in the second aortic area. No pericardial rub ABDOMEN: No vessel pulsations or distention. No tenderness. No organomegaly appreciated. Bowel sounds are normally heard. : Deferred. RECTAL: Deferred. LYMPHATIC: No lymphadenopathy noted in the neck. EXTREMITIES: No edema or cyanosis. No hematoma bleeding of the right groin. MUSCULOSKELETAL: No acute joint deformities or swelling SKIN: There are no significant rashes or ecchymosis NEUROPSYCHIATRIC: The patient is alert and oriented x3. Appears to be in a good mood. No tremors or rigidity noted. Data 02/10/24 04:27 02/10/24 04:27 Other Labs: Laboratory Last Values WBC 7.16 10^3/uL (3.29-11.43) 02/10/24 04: RBC 4.94 10^6/uL (3.85-5.65) 02/10/24 04:27 Hgb 15.50 g/dL (11.27-16.99) 02/10/24 04: Hct 47.4 % (37-53) 02/10/24 04: MCV 96.0 fl (82-101) 02/10/24 04: MCH 31.4 pg (27-33) 02/10/24 04: MCHC 32.7 g/dL (30-55) 02/10/24 04: RDW 15.9 % (12.1-15.1) H 02/10/24 04: Plt Count 163 10^3/cmm (157-399) 02/10/24 04: MPV 10.7 fL (7.4-10.4) H 02/10/24 04: Neut % (Auto) 71.1 % 02/10/24 04: Lymph % (Auto) 19.4 % 02/10/24 04:27 [place] % (Auto) 7.7 % 02/10/24 04: Eos % (Auto) 1.1 % 02/10/24 04: Baso % (Auto) 0.4 % 02/10/24 04: Neut # (Auto) 5.09 10^3/uL (1.8-7.7) 02/10/24 04: Lymph # (Auto) 1.4 10^3/uL (0.8-4.8) 02/10/24 04: [place] # (Auto) 0.6 10^3/uL (0.2-0.9) 02/10/24 04: Eos # (Auto) 0.1 10^3/uL (0.0-0.8) 02/10/24 04:27 Baso # (Auto) 0.0 10^3/uL (0.0-0.1) 02/10/24 04:27 Nucleated RBC % (auto) 0 % 02/10/24 04:27 Nucleated RBCs # 0.0 /100WBC 02/10/24 04:27 PT 16.40 SECONDS (12.1-14.9) H 02/06/24 19:42 INR 1.28 (0.8-1.2) H 02/06/24 19:42 APTT 39.5 SECONDS (23.9-36.7) H 02/08/24 21:50 D-Dimer 1.29 ug/mLFEU (0-0.59) H 02/06/24 19:42 Specimen Type Not specified 02/08/24 16:49 Sample Site Ao 02/08/24 16:49 Elvin Test N/a 02/08/24 16:49 A-a O2 Gradient Not Reportable 02/08/24 16:49 Hematocrit 49.7 % (42-52) 02/08/24 16:49 Hgb O2 Saturation 92.0 % (95-100) L 02/08/24 16:49 Carboxyhemoglobin 1.1 %THgb (0.4-20.1) 02/08/24 16:49 Methemoglobin < 0.0 % (0.4-1.5) L 02/08/24 16:49 Total Hemoglobin 16.2 g/dL (14-18) 02/08/24 16:49 O2 Delivery Device Room air 02/08/24 16:49 FiO2 21.0 % 02/08/24 16:49 Needle Leader ID [place] 02/08/24 16:49 Sodium 136 mmol/L (136-145) 02/10/24 04:27 Potassium 3.7 mmol/L (3.5-5.1) 02/10/24 04:27 Chloride 98 mmol/L (98-107) 02/10/24 04:27 Carbon Dioxide 27 mmol/L (22-29) 02/10/24 04:27 Anion Gap 14.7 (5-19) 02/10/24 04:27 BUN 22 mg/dL (8-23) 02/10/24 04:27 Creatinine 1.6 mg/dL (0.7-1.2) H 02/10/24 04:27 GFR Calculation Not Reportable 02/10/24 04:27 Glucose 94 mg/dL (65-115) 02/10/24 04:27 Estimat Average Glucose 126 02/06/24 20:12 Hemoglobin A1c 6.0 % (4.0-6.0) 02/06/24 20:12 Calculated Osmolality 285 mOsm/kg (285-295) 02/10/24 04:27 Lactic Acid 1.3 mmol/L (0.5-2.2) 02/06/24 20:12 Calcium 8.8 mg/dL (8.5-10.5) 02/10/24 04:27 Phosphorus 3.3 mg/dL (2.5-4.5) 02/07/24 03:55 Magnesium 2.1 mg/dL (1.7-2.3) 02/10/24 04:27 Total Bilirubin 0.7 mg/dL (0.15-1.2) 02/09/24 03:30 Direct Bilirubin 0.40 mg/dL (0.00-0.30) H 02/09/24 03:30 AST 19 U/L (0-40) 02/09/24 03:30 ALT 15 U/L (0-41) 02/09/24 03:30 Alkaline Phosphatase 114 U/L (40-130) 02/09/24 03:30 Troponin T Baseline 33 ng/L (0-15) H 02/06/24 12:52 Troponin T 120 Minute 34.16 ng/L (0-15) H 02/06/24 15:10 Delta Troponin T 1.16 ABS# (0-10) 02/06/24 15:10 Troponin T Hi Sens 6Hr 30.26 ng/L (0-15) H 02/06/24 19:42 Troponin T Hi Sens 6Hr Delta -2.74 ng/L (0-12) L 02/06/24 19:42 C-Reactive Protein 3.0 mg/L (0.0-4.9) 02/09/24 03:30 NT-Pro-B Natriuret Pep 1675 pg/mL (0-450) H 02/09/24 03:30 Total Protein 5.0 g/dL (6.6-8.7) L 02/09/24 03:30 Albumin 3.2 g/dL (3.5-5.2) L 02/09/24 03:30 Globulin 1.8 g/dL (1.3-4.6) 02/09/24 03:30 Triglycerides 129 mg/dL (0-150) 02/06/24 19: Cholesterol 166 mg/dL (0-200) 02/06/24 19:42 LDL Cholesterol, Calc 94 mg/dL (50-129) 02/06/24 19: HDL Cholesterol 46 mg/dL (60-100) L 02/06/24 19: LDL/HDL Ratio 2.04 RATIO (0.00-3.22) 02/06/24 19: Cholesterol/HDL Ratio 3.61 mg/dL (1.0-5.00) 02/06/24 19: Procalcitonin 0.07 ng/mL (0-0.5) 02/06/24 15:10 TSH 1.95 uIU/mL (0.27-4.20) 02/06/24 19:42 A&P Assessment and plan (1) History of coronary artery bypass graft x 3: Patient had a cardiac catheter yesterday. 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 The venous graft to the RCA was completely occluded. The [place] RCA was found to have mild diffuse disease. The circumflex artery also was found to have mild diffuse disease. LAD was found to have around 60 to 70% mid lesion right after the aneurysmal segment. 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 Patient underwent a Myocardial perfusion imaging today. Was found no significant ischemia. The implication of the test findings were discussed with the patient in detail which is understood well. Continue on the current management. (2) Essential hypertension: Patient blood pressures seems to be getting under control. May continue on the current medications. (3) History of pacemaker: The pacemaker function appears to be appropriate. Patient may benefit from BORING MACHINE OPERATOR VERTICAL. (4) Nonsustained ventricular tachycardia: Possible related to the ventricular dysfunction. I may switch the IV amiodarone to p.o. (5) Acute cholecystitis: I discussed with Dr. Agrawal. The gallbladder thickening was thought to be related to congestive hepatopathy. Patiently currently he is remaining afebrile for 48 hours. It was thought to be appropriate to go ahead with a cardiac workup at this point (6) Chronic atrial fibrillation: The patient is willing to try the anticoagulation at this time. I may start him on Eliquis 2.5 mg p.o. twice daily in view of his abnormal kidney function and the age (7) Acute on chronic systolic heart failure: The patient's LV systolic dysfunction, could be related to arrhythmia. Currently the heart failure is compensated. Plan Dr. Munoz's office in [place] will make arrangements for him to be seen by him to consider pacemaker upgrade to a BORING MACHINE OPERATOR VERTICAL and possible ablation procedure. If he continues to remain stable, may be discharged home from a cardiac standpoint. May continue amiodarone as follows 400 mg p.o. twice daily for 7 days followed by 400 mg p.o. daily for 7 days followed by 200 mg p.o. daily Attestations 2 Medical Necessity Statement*: Possible discharge home today Coding Level of Care Code 95401 Diagnoses History of coronary artery bypass graft x 3 Z95.1 Essential hypertension I10 History of pacemaker Z95.0 Nonsustained ventricular tachycardia I47.29 Acute cholecystitis K81.0 Chronic atrial fibrillation I48.20 Acute on chronic systolic heart failure I50.23
--- NOTE | 2024-02-10 15:23 | PC.NURSE ---
Discharge instructions given to patient and , all questions answered. Patient and belongings wheeled to private vehicle, driving.
== END 2024-02-10 15:20 | disposition home or self-care (01) | DRG 286 ==
LOC: ER 13:21 → ICU 18:25
PROVIDERS: Internal Medicine; Internal Medicine Cardiovascular Disease; Physician Assistant; Surgery; Admitting Provider Family Medicine; Emergency Provider Family Medicine; PCP Registered Nurse; Visit Provider Family Medicine
PROC: 4A023N6 Measurement of Cardiac Sampling and Pressure, Right Heart, Percutaneous Approach (ICD-10-PCS; principal; 2024-02-08 16:30)
DX: I11.0 Hypertensive heart disease with heart failure (principal); I50.23 Acute on chronic systolic (congestive) heart failure; I25.810 Atherosclerosis of coronary artery bypass graft(s) without angina pectoris; I47.20 Ventricular tachycardia, unspecified; K81.0 Acute cholecystitis; I48.20 Chronic atrial fibrillation, unspecified; I25.10 Atherosclerotic heart disease of native coronary artery without angina pectoris; I25.82 Chronic total occlusion of coronary artery; I44.7 Left bundle-branch block, unspecified; K21.9 Gastro-esophageal reflux disease without esophagitis; I25.5 Ischemic cardiomyopathy; Z95.0 Presence of cardiac pacemaker; Z92.3 Personal history of irradiation; Z87.891 Personal history of nicotine dependence
CPT/HCPCS: 36415; 71045; 74177; 76705; 78452; 80048; 80053; 80061; 80076; 82810; 83036; 83605; 83735; 83880; 84100; 84145; 84443; 84484; 85025; 85049; 85378; 85610; 85730; 86140; 93005; 93017; 93306; 93457; 94664; 96365; 96372; 96374; 96375; 96376; 99152; 99153; 99285; A4222; A9500; C1751; C1769; C1887; C1894; C9113; J0283; J1644; J1940; J2250; J2543; J2785; J3010; J3475; J3480; J7030; J7040; Q9967

== ENCOUNTER → 2024-02-28 13:29 | Outpatient (BNVA) | payer MEDICARE, SELFPAY | PROVIDERS: PCP Registered Nurse; Visit Provider Nurse Practitioner Family | DX: I11.0 Hypertensive heart disease with heart failure (principal); I50.42 Chronic combined systolic (congestive) and diastolic (congestive) heart failure; Z95.0 Presence of cardiac pacemaker; I48.20 Chronic atrial fibrillation, unspecified; Z79.01 Long term (current) use of anticoagulants | CPT/HCPCS: 99214 ==

== ENCOUNTER → 2024-03-07 08:19 | Outpatient (BNVA) | payer MEDICARE, SELFPAY | PROVIDERS: PCP Registered Nurse; Visit Provider Surgery | DX: K82.9 Disease of gallbladder, unspecified (principal) | CPT/HCPCS: 99214 ==

== ENCOUNTER → 2024-03-30 10:29 | Outpatient (BNVA) | payer MEDICARE, SELFPAY | PROVIDERS: PCP Registered Nurse; Visit Provider Registered Nurse | DX: R19.7 Diarrhea, unspecified (principal) | CPT/HCPCS: 87045; 87427; 87449; 87493 ==

== ENCOUNTER → 2024-04-02 10:02 | Outpatient (BNVA) | payer MEDICARE, SELFPAY | PROVIDERS: PCP Registered Nurse; Visit Provider Registered Nurse | DX: R19.7 Diarrhea, unspecified (principal) | CPT/HCPCS: 85025; 86003; 86008; 86618; 86666; 86757 ==

== ENCOUNTER 2024-08-10 16:16 | Emergency (ER) | payer MEDICARE, SELFPAY ==
[2024-08-10] VITALS (7 sets, daily range): BP systolic 146–187; BP diastolic 79–108; PULSE 60; RESP 12–24; TEMP 36.4; O2SAT 94–98
--- NOTE | 2024-08-10 17:02 | XRR_ITS ---
PROCEDURE INFORMATION: Exam: XR Chest Exam date and time: 08/10/2024 6:06 PM Age: 79 years old Clinical indication: Shortness of breath; Patient HX: SOB; Cough; Stroke like symptoms TECHNIQUE: Imaging protocol: Radiologic exam of the chest. Views: 2 views. COMPARISON: CR XR chest 1V portable [id number] 02/07/2024 7:14 AM FINDINGS: Tubes, catheters and devices: Stable left subclavian pacer with right atrial appendage and right ventricular leads. Lungs: Lungs remain hyperinflated. No focal airspace disease. Pleural spaces: Blunting of the right costophrenic angle suspicious for a small pleural effusion. Heart/Mediastinum: Stable cardiomegaly. Bones/joints: Post median sternotomy and CABG. XR/XR chest 2V* [id number] IMPRESSION: 1. Likely small right pleural effusion. 2. No focal airspace disease.
--- NOTE | 2024-08-10 17:02 | CTR_ITS ---
PROCEDURE INFORMATION: Exam: CT Head Without Contrast Exam date and time: 08/10/2024 5:08 PM Age: 79 years old Clinical indication: Weakness, extremity; Left; Additional info: Stroke like weakness lle for 1 week TECHNIQUE: Imaging protocol: Computed tomography of the head without contrast. Radiation optimization: All CT scans at this facility use at least one of these dose optimization techniques: automated exposure control; mA and/or kV adjustment per patient size (includes targeted exams where dose is matched to clinical indication); or iterative reconstruction. COMPARISON: CR XR cervical spine 3V* [id number] 04/29/2022 2:10 PM RADIATION DOSE METRICS: Total DLP (mGy-cm): 1072.18 FINDINGS: Brain: No acute intracranial hemorrhage or discrete extra-axial fluid collection. Focal area of encephalomalacia in the right occipital lobe. Periventricular and subcortical white matter hypodensities likely represent chronic small vessel ischemic changes. Jdul-yl-wohsurix generalized cortical volume loss. Weinberg-white differentiation is maintained. The basal cisterns are clear. Cerebral ventricles: No ventriculomegaly. Paranasal sinuses: Visualized sinuses are unremarkable. No fluid levels. Mastoid air cells: Visualized mastoid air cells are well aerated. Bones: Unremarkable. No acute fracture. Soft tissues: Focal hyperdense area in the right frontal scalp subcutaneous soft tissues. Vasculature: Vascular calcifications along the carotid siphons. CT/CT head wo con* [id number] IMPRESSION: 1. No definite acute intracranial findings. MRI brain without contrast could be considered for further assessment if warranted. 2. 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 3. Possible subacute to chronic right frontal scalp hematoma.
--- NOTE | 2024-08-10 17:08 | ED_ITS ---
HPI - Weakness 2 General: Chief complaint: Weakness Stated complaint: stroke like symptoms Time Seen by Provider: 08/10/24 16:42 History of Present Illness: 79-year-old male presents to the emergen cy department with a chief complaint of having generalized weakness fatigue and as well as left-sided foot drop and weakness has been ongoing progressive getting worse over the last week to week and a half patient is seen by cardiology who suggested go to the ER for stroke workup per the the patient is quite fatigued and weak and sleeping more than normal he has some mild slurred speech and some left-sided foot drop which just Lapp[place] the foot on the floor when he tries to walk he does get worse with time. The patient does have a known history of underlying disc disease and lumbar back issues he does not recall any recent trauma or injury noted to his back. Patient reports no bowel or bladder issues or recurrent digits. Patient also has reports a mild headache today in which he has had some high blood pressure. Per the patient's patient has has had medication changes recently including blood pressure meds . The patient denies having any other associated symptoms. Associated symptoms: Reports confusion and headache(s); Denies chest pain, chills, fever(s), nausea or vomiting Review of Systems 2 General: Reports: 10 or more systems reviewed and unremarkable except in HPI and below Const: Reports: fatigue and malaise; Denies: fever(s) or chills Eyes: Denies: change in vision or blurry vision Card: Denies: chest pain or palpitations Resp: Denies: dyspnea or productive cough GI: Denies: abdominal pain, nausea or vomiting : Denies: flank pain Musc: Denies: extremity pain or extremity swelling Skin/Breast: Denies: rash or pruritus Neuro: Reports: headache(s), weakness in extremities and confusion Psych: Denies: anxiety or depression Willis/Lymph: Denies: easy bleeding All/Imm: Denies: urticaria, throat swelling or facial swelling PFSH ED 2 PFSH: Medical History Pseudomyxoma peritonei History of resection Hx of nephrolithotomy with removal of calculi History of pacemaker Essential hypertension Surgical History S/P laparotomy Omental resection for pseudomyxoma peritonei History of back surgery History of hernia repair History of cervical sympathectomy History of coronary artery bypass graft x 3 History of open heart surgery Social History Smoking and tobacco/nicotine status: never used tobacco/nicotine Alcohol intake: never Substance/Drug Use: never Adopted: No Caregiver/support person: No Lives independently: No Household members: spouse Marital status: Sexually active: Yes Do you think of yourself as: Straight/Heterosexual Current gender identity: Male Physical Exam 2 Const: COMMON NORMALS: no acute distress, patient oriented x3 and healthy appearing HENMT: COMMON NORMALS: normocephalic and atraumatic HEAD & SCALP: n ormocephalic and atraumatic Eye: COMMON NORMALS: Equal, round and reactive pupils present and EOMs intact bilaterally PUPIL: Yes Equal, round and reactive pupils present Neck/C-Spine: COMMON NORMALS: full ROM, supple and no JVD Lymph: LYMPHATIC: no lymphadenopathy noted Chest: COMMONS NORMALS: normal inspection of the chest and normal palpation of entire chest wall Resp: COMMON NORMALS: normal respiratory effort, No retractions and clear to auscultation bilaterally EFFORT & INSPECTION: Yes able to speak in complete sentences and Yes symmetric chest movement AUSCULTATION: clear to auscultation bilaterally Cardio: COMMON NORMALS: no JVD, regular rate and regular rhythm RATE: r egular rate RHYTHM: regular rhythm GI: COMMON NORMALS: Normal to inspection, nondistended, normoactive bowel sounds present, Soft to palpation and non-tender INSPECTION: Yes normal to inspection PALPATION: Yes Soft to palpation : COMMON NORMALS: Yes no CVA tenderness BLADDER/KIDNEY EXAM: Yes no CVA tenderness Back/Pelvis: COMMON NORMALS: no CVA tenderness Extremity: COMMON NORMALS: normal to inspection and full ROM Neuro: COMMON NORMALS: patient oriented x3, CN's II-XII intact bilaterally, moves all extremities and no focal motor deficits Psych: COMMON NORMALS: mental status grossly normal, Normal thought process present, cooperative and normal affect THOUGHT PROCESS: Normal thought process present Skin: COMMON NORMALS: no rashes or lesions noted GENERAL SKIN EXAM: no rashes or lesions noted Course 2 Vital Signs: Vital signs: Vital Signs Temperature 97.5 F L 08/10/24 16:23 Pulse Rate 60 08/10/24 20:30 Respiratory Rate 18 08/10/24 20:30 Blood Pressure 161/99 08/10/24 20:30 Pulse Oximetry 97 08/10/24 20:30 Oxygen Delivery Me thod Room Air 08/10/24 20:30 MDM - Weakness Medical Decision Making Due to the patient's symptoms and condition laboratory imaging will be obtained we will continue to follow. 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 Will continue to follow. Patient CT imaging reveals an old infarct on the right side but no acute process appreciated patient has no other focal neurodeficits he does have a little bit of mild left-sided foot drop CT imaging lumbar spine reveals severe spinal stenosis multi generate disc degenerative levels. I think at this time the patient is finding chronic heart failure but more so he has significant spinal stenosis contributing to his foot drop he will be started on some steroids and medications for this did advise prompt follow-up outpatient with primary care in next 2 to 3 days for set up for potential MRI imaging of the lumbar spine in which to return the interim if any of his symptoms persist or worse. Lab Data 08/10/24 16:50 08/10/24 16:50 Radiology Impressions Chest X-Ray 08/10/24 17:02 IMPRESSION: 1. Likely small right pleural effusion. 2. No focal airspace disease. Head CT 08/10/24 17:02 IMPRESSION: 1. No definite acute intracranial findings. MRI brain without contrast could be considered for further assessment if warranted. 2. 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 3. Possible subacute to chronic right frontal scalp hematoma. Lumbar Spine CT 08/10/24 18:00 IMPRESSION: 1. Multilevel lumbar spondylosis as detailed above. 2. Moderate spinal canal stenosis most pronounced at L2-L3, L3-L4, and L4-L5. 3. Moderate to severe bilateral neural foraminal narrowing at L4-L5 and L5-S1 with milder foraminal narrowing throughout the remaining lumbar spine. Laboratory Results WBC 7.94 10^3/uL (3.29-11.43) 08/10/24 16:50 RBC 4.07 10^6/uL (3.85-5.65) 08/10/24 16:50 Hgb 13.00 g/dL (11.27-16.99) 08/10/24 16:50 Hct 41.1 % (37-53) 08/10/24 16:50 MCV 101.0 fl (82-101) 08/10/24 16:50 MCH 31.9 pg (27-33) 08/10/24 16:50 MCHC 31.6 g/dL (30-55) 08/10/24 16:50 RDW 14.0 % (12.1-15.1) 08/10/24 16:50 Plt Count 253 10^3/cmm (157-399) 08/10/24 16:50 MPV 10.2 fL (7.4-10.4) 08/10/24 16:50 Neut % (Auto) 70.0 % 08/10/24 16:50 Lymph % (Auto) 18.4 % 08/10/24 16:50 [place] % (Auto) 9.1 % 08/10/24 16:50 Eos % (Auto) 1.3 % 08/10/24 16:50 Baso % (Auto) 0.9 % 08/10/24 16:50 Neut # (Auto) 5.57 10^3/uL (1.8-7.7) 08/10/24 16:50 Lymph # (Auto) 1.5 10^3/uL (0.8-4.8) 08/10/24 16:50 [place] # (Auto) 0.7 10^3/uL (0.2-0.9) 08/10/24 16:50 Eos # (Auto) 0.1 10^3/uL (0.0-0.8) 08/10/24 16:50 Baso # (Auto) 0.1 10^3/uL (0.0-0.1) 08/10/24 16:50 Nucleated RBC % (auto) 0 % 08/10/24 16:50 Nucleated RBCs # 0.0 /100WBC 08/10/24 16:50 Sodium 140 mmol/L (136-145) 08/10/24 16:50 Potassium 3.7 mmol/L (3.5-5.1) 08/10/24 16:50 Chloride 101 mmol/L (98-107) 08/10/24 16:50 Carbon Dioxide 28 mmol/L (22-29) 08/10/24 16:50 Anion Gap 14.7 (5-19) 08/10/24 16:50 BUN 21 mg/dL (8-23) 08/10/24 16:50 Creatinine 1.8 mg/dL (0.7-1.2) H 08/10/24 16:50 GFR Calculation Not Reportable 08/10/24 16:50 Glucose 96 mg/dL (65-115) 08/10/24 16:50 Calculated Osmolality 293 mOsm/kg (285-295) 08/10/24 16:50 Calcium 8.5 mg/dL (8.5-10.5) 08/10/24 16:50 Total Bilirubin 0.5 mg/dL (0.15-1.2) 08/10/24 16:50 AST 39 U/L (0-40) 08/10/24 16:50 ALT 42 U/L (0-41) H 08/10/24 16:50 Alkaline Phosphatase 149 U/L (40-130) H 08/10/24 16:50 Troponin T Baseline 37 ng/L (0-15) H 08/10/24 16:50 Troponin T 120 Minute 32.82 ng/L (0-15) H 08/10/24 19:20 Delta Troponin T -4.18 ABS# (0-10) L 08/10/24 19:20 C-Reactive Protein 4.4 mg/L (0.0-4.9) 08/10/24 16:50 NT-Pro-B Natriuret Pep 05886 pg/mL (0-450) H 08/10/24 16:50 Total Protein 5.9 g/dL (6.6-8.7) L 08/10/24 16:50 Albumin 3.8 g/dL (3.5-5.2) 08/10/24 16:50 Globulin 2.1 g/dL (1.3-4.6) 08/10/24 16:50 Urine Color Yellow (Yellow) 08/10/24 17:04 Urine Appearance Clear (CLEAR) 08/10/24 17:04 Urine pH 5.5 (5-7) 08/10/24 17:04 Ur Specific [place] 1.013 (1.005-1.030) 08/10/24 17:04 Urine Protein Negative (Negative) 08/10/24 17:04 Urine Glucose (UA) 3+ (Normal) H 08/10/24 17:04 Urine Ketones Negative (Negative) 08/10/24 17:04 Urine Blood Negative (Negative) 08/10/24 17:04 Urine Nitrate Negative (Negative) 08/10/24 17:04 Urine Bilirubin Negative (Negative) 08/10/24 17:04 Urine Urobilinogen 1.0 mg/dL (Negative) 08/10/24 17:04 Ur Leukocyte Esterase Negative (Negative) 08/10/24 17:04 Urine RBC 0-2 /hpf (0-2) 08/10/24 17:04 Urine WBC 0-5 /hpf (0-5) 08/10/24 17:04 Ur Squamous Epith Cells 0-5 /hpf (0-5) 08/10/24 17:04 Amorphous Sediment Not Reportable 08/10/24 17:04 Urine Bacteria None seen /hpf (NONE) 08/10/24 17:04 Hyaline Casts 0-4 /lpf H 08/10/24 17:04 XR interpretation done by ED provider, pending radiology final review Discharge Plan Discharge Patient Disposition: Home Clinical Impression: Left lumbar radiculopathy, Acquired left foot drop Chronic congestive heart failure Qualifiers: Heart failure type: unspecified Qualified Code(s): I50.9 - Heart failure, unspecified Condition: Stable Prescriptions: New prednisone 20 mg tablet 20 mg PO BID 7 Days Qty: 14 0RF gabapentin [Neurontin] 100 mg capsule 100 mg PO BID Qty: 20 0RF No Action nitroglycerin 0.4 mg tablet, sublingual 0.4 mg sublingual Q5M PRN (Reason: chest pain) Qty: 20 0RF Rx Instructions: do not exceed 3 doses per episode metoprolol succinate 50 mg tablet extended release 24 hr 50 mg PO DAILY 90 Days Qty: 90 1RF tramadol 50 mg tablet 50 mg PO BID PRN (Reason: pain) 7 Days Qty: 14 0RF amlodipine 5 mg tablet PO Hold Instructions: Doctor's Order mirtazapine 15 mg tablet See Rx Instructions .ROUTE .COMPLEX Qty: 90 0RF Dose Instruction: TAKE 1 TABLET BY MOUTH DAILY Rx Instructions: TAKE 1 TABLET BY MOUTH DAILY amiodarone 400 mg tablet See Rx Instructions .ROUTE .COMPLEX Qty: 90 0RF Dose Instruction: TAKE 1 TABLET BY MOUTH DAILY Rx Instructions: TAKE 1 TABLET BY MOUTH DAILY Eliquis 5 mg tablet 2.5 mg PO BID@0900,2100 30 Days Qty: 90 0RF furosemide 40 mg tablet 20 mg PO DAILY PRN (Reason: Edema) Hold Instructions: Resume on 02/13/24. trazodone 50 mg tablet 50 mg PO BEDTIME PRN (Reason: Sleep) Discharge Orders: Discharge ED (Routine); Ordered 08/10/24 Ordered By: Juan Mcnulty Referrals: Gray Butts, RULING MACHINE SET UP OPERATOR [Primary Care Provider] - 1-3 days Discharge Diet: Advance as tolerated and Cardiac Discharge Activity: Increase activity as tolerated Patient Instructions: Congestive Heart Failure, Lumbar Radiculopathy (ED), Pain Management Activity Restrictions/Additional Instructions: It appears that you may have suffered a stroke a while ago as you were found to have some chronic changes in the right side your brain consistent with an old stroke but no recent strokes were noted you were found to have some significant lumbar stenosis in your lumbar back and I believe that this is the main reason for your foot drop in which you will be started on medications for it is recommended to further follow-up primary care for further investigation is a potential MRI imaging please return the interim if any of your symptoms persist or worse. Coding Level of Care Code ED [employer] Rep[employer]r for [employer] Related Data Home Medications Medication Instructions Recorded Confirmed furosemide 40 mg tablet 20 mg PO DAILY PRN Edema 02/06/24 05/21/24 trazodone 50 mg tablet 50 mg PO BEDTIME PRN Sleep 02/06/24 05/21/24 amlodipine 5 mg tablet mg PO 05/21/24 05/21/24 Previous Rx's Medication Instructions Recorded tramadol 50 mg tablet 50 mg PO BID PRN pain 7 days #14 03/26/22 tabs nitroglycerin 0.4 mg sublingual 0.4 mg sublingual Q5M PRN chest 04/12/23 tablet pain #20 tabs metoprolol succinate 50 mg 50 mg PO DAILY 90 days #90 tabs 02/16/24 tablet,extended release 24 hr mirtazapine 15 mg tablet See Rx Instructions .Route 03/14/24 .COMPLEX #90 tabs amiodarone 400 mg tablet See Rx Instructions .Route 06/29/24 .COMPLEX #90 tabs apixaban 5 mg tablet (Eliquis) 2.5 mg (1/2 x 5 mg) PO 07/04/24 BID@0900,2100 30 days #90 tabs gabapentin 100 mg capsule 100 mg PO BID #20 caps 08/10/24 (Neurontin) prednisone 20 mg tablet 20 mg PO BID 7 days #14 tabs 08/10/24 Allergies Allergy/AdvReac Type Severity Reaction Status Date / Time meperidine [From Demerol] Allergy Intermediate UNK Verified 08/10/24 16:31 povidone-iodine Allergy Unknown Verified 08/10/24 16:31 [From Betadine] soap [From Betadine] Allergy Unknown Verified 08/10/24 16:31
--- NOTE | 2024-08-10 17:09 | PC.NURSE ---
Blood glucose at time of triage 139
[2024-08-10 17:17] LABS: Bilirubin Urine Negative (Negative); Blood Urine Negative (Negative); Glucose Urine UA 3+ (Normal); Ketones Urine Negative (Negative); Leukocyte Esterase Urine Negative (Negative); Nitrate Urine Negative (Negative); Protein Urine Negative (Negative); Specific Gravity, Urine 1.013 (1.005-1.030); Urine Appearance Clear (CLEAR); Urine Color Yellow (Yellow); pH Urine 5.5 (5-7)
[2024-08-10 17:22] LABS: Basophils # 0.1 10^3/uL (0.0-0.1); Basophils % 0.9 %; Eosinophils # 0.1 10^3/uL (0.0-0.8); Eosinophils % 1.3 %; Hematocrit 41.1 % (37-53); Lymphocytes # 1.5 10^3/uL (0.8-4.8); Lymphocytes % 18.4 %; Mean Corpuscular HGB Conc 31.6 g/dL (30-55); Mean Corpuscular Hemoglobin 31.9 pg (27-33); Mean Platelet Volume 10.2 fL (7.4-10.4); Monocytes # 0.7 10^3/uL (0.2-0.9); Monocytes % 9.1 %; Neutrophils # 5.57 10^3/uL (1.8-7.7); Nucleated Red Blood Cells % 0 %; Platelet Count 253 10^3/cmm (157-399); Red Blood Count 4.07 10^6/uL (3.85-5.65); White Blood Count 7.94 10^3/uL (3.29-11.43)
[2024-08-10 17:22] LABS: Add Urine Microscopic? YES; Bacteria Urine None Seen /hpf; Hyaline Casts Urine 0-4 /lpf; RBC Urine 0-2 /hpf (0-2); Squamous Epithelial Cell Urine 0-5 /hpf (0-5); WBC Urine 0-5 /hpf (0-5)
[2024-08-10 17:29] LABS: Add Urine Culture? No
[2024-08-10 17:34] LABS: Troponin(5th) Baseline 37 ng/L (0-15)
[2024-08-10 17:42] LABS: Alanine Aminotransferase 42 U/L (0-41); Albumin Level 3.8 g/dL (3.5-5.2); Alkaline Phosphatase 149 U/L (40-130); Anion Gap 14.7 (5-19); Aspartate Amino Transferase 39 U/L (0-40); Blood Urea Nitrogen 21 mg/dL (8-23); C Reactive Protein 4.4 mg/L (0.0-4.9); Calcium 8.5 mg/dL (8.5-10.5); Carbon Dioxide 28 mmol/L (22-29); Chloride 101 mmol/L (98-107); Creatinine Clr Calc Pharmacy 35.6923; Globulin 2.1 g/dL (1.3-4.6); Glucose 96 mg/dL (65-115); NT Pro B Type Natriuretic Pept 13370 pg/mL (0-450); Osmolality Calculated 293 mOsm/kg (285-295); Potassium 3.7 mmol/L (3.5-5.1); Sodium 140 mmol/L (136-145); Total Bilirubin 0.5 mg/dL (0.15-1.2); Total Protein 5.9 g/dL (6.6-8.7)
--- NOTE | 2024-08-10 17:52 | ECG_ITS ---
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 Measurements Intervals [place] Rate: 60 P: -87 NH: 204 QRS: -73 QRSD: 176 T: 109 QT: 537 QTc: 537 Interpretive Statements ELECTRONIC ATRIAL PACEMAKER ELECTRONIC VENTRICULAR PACEMAKER ABNORMAL RHYTHM ECG Compared to ECG 02/08/2024 18:52:42 No significant changes Electronically Signed On 08-13-2024 00:10:23 CDT by Yudith Redmond M.D. [email or web address]
--- NOTE | 2024-08-10 18:00 | CTR_ITS ---
PROCEDURE INFORMATION: Exam: CT Lumbar Spine Without Contrast Exam date and time: 08/10/2024 6:13 PM Age: 79 years old Clinical indication: Prior surgery; Surgery date: 6+ months; Surgery type: Laminectomy; Patient HX: C/O left lower ext weakness; Additional info: Foot drop with weakness on the left TECHNIQUE: Imaging protocol: Computed tomography of the lumbar spine without contrast. Radiation optimization: All CT scans at this facility use at least one of these dose optimization techniques: automated exposure control; mA and/or kV adjustment per patient size (includes targeted exams where dose is matched to clinical indication); or iterative reconstruction. COMPARISON: CT abdomen pelvis w con* [id number] 02/06/2024 1:58 PM RADIATION DOSE METRICS: Total DLP (mGy-cm): 618.02 FINDINGS: Bones/joints: No acute fracture. Vertebral body heights are maintained. Moderate intervertebral disc space height loss throughout the lumbar spine. Vacuum disc phenomenon at L1-L2. Broad-based disc bulge and bilateral facet arthropathy at L1-L2 with mild spinal canal stenosis and [id number] bilateral neural foraminal narrowing. Disc bulge, ligamentum flavum thickening, bilateral facet arthropathy at L2-L3 with moderate spinal canal stenosis and moderate bilateral neural foraminal narrowing. Similar findings also at L3-L4 and L4-L5, though there is severe bilateral neural foraminal narrowing at L4-L5. Disc bulge in bilateral facet arthropathy at L5-S1 with moderate to severe bilateral neural foraminal narrowing. Left hemilaminectomy at L5. Vasculature: Moderate atherosclerotic aortoiliac calcifications. No aortic aneurysm. Soft tissues: Unremarkable. CT/CT lumbar spine wo con* [id number] IMPRESSION: 1. Multilevel lumbar spondylosis as detailed above. 2. Moderate spinal canal stenosis most pronounced at L2-L3, L3-L4, and L4-L5. 3. Moderate to severe bilateral neural foraminal narrowing at L4-L5 and L5-S1 with milder foraminal narrowing throughout the remaining lumbar spine.
--- NOTE | 2024-08-10 19:04 | ECG_ITS ---
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 Measurements Intervals [place] Rate: 60 P: 265 TN: 203 QRS: 248 QRSD: 177 T: 73 QT: 549 QTc: 549 Interpretive Statements ELECTRONIC ATRIAL PACEMAKER ELECTRONIC VENTRICULAR PACEMAKER ABNORMAL RHYTHM ECG Compared to ECG 08/10/2024 17:52:01 No significant changes Electronically Signed On 08-14-2024 00:56:58 CDT by Yudith Redmond M.D. [email or web address]
--- NOTE | 2024-08-10 19:11 | PC.NURSE ---
this nurse assumed pt care from NILSA Rogers at 1905.
[2024-08-10 19:55] LABS: Troponin 5 2HR 32.82 ng/L (0-15)
[2024-08-10 19:56] LABS: Troponin 5 2HR Delta -4.18 ABS# (0-10)
[2024-08-10] MEDS: gabapentin 100 mg Capsule 200 MG PO (21:07)
[2024-08-10] MEDS: methylPREDNISolone sod succ 125 mg/2 mL INJ 60 MG IVP (21:07)
== END 2024-08-10 21:26 | disposition home or self-care (01) ==
PROVIDERS: Emergency Provider Emergency Medicine; PCP Registered Nurse
DX: M54.12 Radiculopathy, cervical region (principal); I50.9 Heart failure, unspecified; M21.372 Foot drop, left foot; Z79.899 Other long term (current) drug therapy; I11.0 Hypertensive heart disease with heart failure
CPT/HCPCS: 36415; 70450; 71046; 72131; 80053; 81001; 83880; 84484; 85025; 86140; 93005; 96374; 99285; J2919

== ENCOUNTER → 2024-08-23 10:00 | Outpatient (BNVA) | payer MEDICARE, SELFPAY | PROVIDERS: PCP Registered Nurse; Visit Provider Registered Nurse | DX: I10 Essential (primary) hypertension (principal) | CPT/HCPCS: 80048 ==

== ENCOUNTER → 2025-01-08 08:30 | Outpatient (BNVA) | payer MEDICARE, SELFPAY | PROVIDERS: PCP Registered Nurse; Referring Provider Registered Nurse; Visit Provider Surgery | DX: K21.9 Gastro-esophageal reflux disease without esophagitis (principal) | CPT/HCPCS: 99213 ==

== ENCOUNTER 2025-01-14 16:52 | Emergency (ER) | payer MEDICARE, SELFPAY ==
[2025-01-14 17:00] VITALS: BP 162/84; PULSE 60; RESP 18; TEMP 36.4; O2SAT 98; BMI 22.4
--- NOTE | 2025-01-14 17:10 | XRR_ITS ---
PROCEDURE INFORMATION: Exam: XR Right Elbow Exam date and time: 01/14/2025 5:18 PM Age: 79 years old Clinical indication: Injury or trauma; Fall; Blunt trauma (contusions or hematomas); Elbow; Right; Additional info: Fall x4 days, pain, limited rom TECHNIQUE: Imaging protocol: Radiologic exam of the right elbow. Views: 3 or more views. COMPARISON: CR (CHEST, ) 01/14/2025 5:15 PM FINDINGS: Bones/joints: No acute fracture or dislocation. Olecranon spurring. Soft tissues: Normal. XR/XR elbow RT min 3V* [id number] IMPRESSION: No definite acute osseous findings. CT could be considered further evaluation if there is concern for occult fracture.
--- NOTE | 2025-01-14 17:10 | XRR_ITS ---
PROCEDURE INFORMATION: Exam: XR Right Shoulder Exam date and time: 01/14/2025 5:15 PM Age: 79 years old Clinical indication: Injury or trauma; Fall; Blunt trauma (contusions or hematomas); Shoulder; Right; Additional info: Fall x4 days, limited rom, ttp TECHNIQUE: Imaging protocol: Radiologic exam of the right shoulder. Views: 2 or more views. COMPARISON: CR XR chest 2V* [id number] 08/10/2024 6:06 PM FINDINGS: Bones/joints: No acute fracture or dislocation. Advanced degenerative changes of the acromioclavicular joint with joint space narrowing and marginal osteophytes. Moderate degenerative changes of the glenohumeral joint. Visualized ribs are unremarkable. Lungs: The visualized lungs are clear. Soft tissues: Normal. XR/XR shoulder RT min 2V* [id number] IMPRESSION: 1. No acute osseous findings. 2. Moderate to advanced degenerative changes of the shoulder as above.
--- NOTE | 2025-01-14 17:10 | XRR_ITS ---
PROCEDURE INFORMATION: Exam: XR Right Hand Exam date and time: 01/14/2025 5:22 PM Age: 79 years old Clinical indication: Injury or trauma; Fall; Blunt trauma (contusions or hematomas); Hand; Right; Additional info: Fall x4 days, pain, swelling TECHNIQUE: Imaging protocol: Radiologic exam of the right hand. Views: 3 or more views. COMPARISON: CR (UP EXM, ) 01/14/2025 5:18 PM FINDINGS: Bones/joints: No acute fracture or dislocation. Mild polyarticular degenerative changes with joint space narrowing. Soft tissues: Normal. Vasculature: Scattered vascular calcifications. XR/XR hand RT min 3V* [id number] IMPRESSION: No acute osseous findings.
--- NOTE | 2025-01-14 17:10 | XRR_ITS ---
PROCEDURE INFORMATION: Exam: XR Right Wrist Exam date and time: 01/14/2025 5:23 PM Age: 79 years old Clinical indication: Injury or trauma; Fall; Blunt trauma (contusions or hematomas); Wrist; Right; Additional info: Fall x4 days, pain, swelling, decreased rom TECHNIQUE: Imaging protocol: Radiologic exam of the right wrist. Views: 3 or more views. COMPARISON: CR ( EX, ) 01/14/2025 5:22 PM FINDINGS: Bones/joints: No acute fracture or dislocation. Mild degenerative changes of the 1st carpometacarpal joint. Soft tissues: Normal. Vasculature: Scattered vascular calcifications. XR/XR wrist RT min 3V* [id number] IMPRESSION: No acute findings.
--- NOTE | 2025-01-14 17:11 | CTR_ITS ---
PROCEDURE INFORMATION: Exam: CT Head Without Contrast Exam date and time: 01/14/2025 5:28 PM Age: 79 years old Clinical indication: Injury or trauma; Fall; Blunt trauma (contusions or hematomas); Without loss of consciousness; Additional info: Fall x4 days, unk loc TECHNIQUE: Imaging protocol: Computed tomography of the head without contrast. Radiation optimization: All CT scans at this facility use at least one of these dose optimization techniques: automated exposure control; mA and/or kV adjustment per patient size (includes targeted exams where dose is matched to clinical indication); or iterative reconstruction. COMPARISON: CT head wo con* [id number] 08/10/2024 5:08 PM RADIATION DOSE METRICS: Total DLP (mGy-cm): 1078 FINDINGS: Brain: No hemorrhage. Periventricular and subcortical white matter hypodensities likely represent chronic small vessel ischemic changes. No mass effect. Redemonstrated encephalomalacia in the right occipital lobe. [id number] generalized cortical volume loss is similar to prior Cerebral ventricles: No ventriculomegaly. Paranasal sinuses: Visualized sinuses are unremarkable. No fluid levels. Mastoid air cells: Visualized mastoid air cells are well aerated. Bones: Unremarkable. No acute fracture. Soft tissues: Stable focal hyperdensity area in the right frontal scalp. Vasculature: Vascular calcifications along the carotid siphons. CT/CT head wo con* [id number] IMPRESSION: 1. No acute intracranial abnormality. 2. Chronic/age-related changes as above are similar to prior.
--- NOTE | 2025-01-14 17:11 | CTR_ITS ---
PROCEDURE INFORMATION: Exam: CT Cervical Spine Without Contrast Exam date and time: 01/14/2025 5:28 PM Age: 79 years old Clinical indication: Injury or trauma; Fall; Blunt trauma; Additional info: Fall x4 days, neck stiffness TECHNIQUE: Imaging protocol: Computed tomography of the cervical spine without contrast. Radiation optimization: All CT scans at this facility use at least one of these dose optimization techniques: automated exposure control; mA and/or kV adjustment per patient size (includes targeted exams where dose is matched to clinical indication); or iterative reconstruction. COMPARISON: CR XR cervical spine 3V* [id number] 04/29/2022 2:10 PM RADIATION DOSE METRICS: Total DLP (mGy-cm): 157.4 FINDINGS: Bones: No acute fracture. Normal alignment. Mild rightward curvature of the cervical spine. Moderate to advanced multilevel cervical spondylosis with intervertebral disc space height loss and endplate degenerative changes. Multilevel bilateral facet arthropathy. No significant disc bulge or herniation. No severe spinal canal stenosis. [id number] bilateral neural foraminal narrowing at several levels due to uncovertebral and facet hypertrophy. Lungs: Lung apices are normal. Vasculature: Atherosclerotic calcifications of bilateral carotid bulbs. Soft tissues: Unremarkable. CT/CT cervical spin wo con* [id number] IMPRESSION: No acute findings.
--- NOTE | 2025-01-14 17:15 | ED_ITS ---
HPI - Fall General: Chief Complaint: Fall Stated Complaint: R hand and elbow pain Time Seen by Provider: 01/14/25 17:01 Source: patient and family Mode of arrival: ambulatory Limitations: no limitations History of Present Illness: This patient is an 79-year-old male who presents the emergency department for a fall that he suffered Tuesday morning. Patient states that it was about 0500, he was walking outside down a ramp and accidentally tripped over his cat, causing him to fall off of the ramp directly onto his right side into a straw bale. He notes that he was not on the ground for very long, family in the room noticed that he was not coming back inside and found him on the ground. Patient states he ultimately does not remember if he lost consciousness, was assisted to his feet and states that he presents due to the pain and swelling to his right upper extremity. Also notes that he was told to present to the ED for x-ray imaging, by primary care. He states he does remember hitting his head, he is not on a blood thinner but has been on Eliquis in the past. He is also noting some associated neck stiffness. The pain to his right upper extremity has caused him difficulty with eating, as he states he noticed he has limited range of motion at the shoulder, elbow, and wrist. Swelling and scattered abrasions noted to the right upper extremity, he is concerned for an infection. He only takes Excedrin Migraine for headaches, states that he has been having a headache since this occurred and has not taken any other medications. No neurological deficits are reported, he is alert and oriented and vitals are unremarkable at this time. MD complaint: fall Onset (ago): day(s) (4) Fall from: standing Fall witnessed: no Place fall occurred: home Loss of consciousness: Unsure Prolonged down time: no Symptoms prior to fall: none Context: tripped/slipped (Tripped on animal) Location of injury: head Location of injury - extremities: Right: shoulder, arm, elbow, forearm and hand Severity: moderate Associated symptoms-after fall: Reports headache(s) and neck pain; Denies abdominal pain, chest pain, difficulty walking or lightheadedness Related Data Previous Rx's ?Medication ?Instructions ?Recorded amiodarone 200 mg tablet 200 mg PO DAILY 90 days #90 tabs 12/26/24 furosemide 20 mg tablet See Rx Instructions .Route 0 12/26/24 .COMPLEX 90 days #90 tabs lisinopril 2.5 mg tablet 2.5 mg PO DAILY 90 days #90 tabs 12/26/24 metoprolol succinate 50 mg 50 mg PO DAILY 90 days #90 tabs 12/26/24 tablet,extended release 24 hr nitroglycerin 0.4 mg sublingual 0.4 mg sublingual Q5M PRN chest 12/26/24 tablet pain #20 tabs pantoprazole 20 mg tablet,delayed 20 mg PO DAILY 30 da ys #30 tabs 12/26/24 release potassium chloride 20 mEq See Rx Instructions .Route 0 12/26/24 tablet,extended release(part/cryst) .COMPLEX #90 tabs cephalexin 500 mg capsule 500 mg PO BID 5 days #10 cap s 01/14/25 Allergies Allergy/AdvReac Type Severity Reaction Status Date / Time meperidine (From Demerol) Allergy Intermediate UNK Verified 01/14/25 17:03 povidone-iodine (From Allergy Unknown Verified 01/14/25 17:03 Betadine) soap (From Betadine) Allergy Unknown Verified 01/14/25 17:03 Review of Systems General: Reports: 10 or more systems reviewed and unremarkable except in HPI and below Const: Reports: other (Reports fall); Denies: fever(s), chills or fatigue Eyes: Denies: change in vision ENMT: Denies: throat pain, ear or mastoid pain or nasal discharge Card: Denies: chest pain, palpitations, swelling of feet/ankles or lightheadedness Resp: Denies: dyspnea, productive cough or wheezing GI: Denies: abdominal pain, nausea, vomiting, diarrhea or constipation : Denies: flank pain, difficulty urinating, dysuria or urinary frequency Musc: Reports: neck pain, extremity pain (Right upper extremity), extremity swelling (Right upper extremity), joint pain (Right elbow and right wrist) and limited range of motion (Right upper extremity); Denies: back pain Skin/Breast: Denies: rash Neuro: Reports: headache(s); Denies: numbness in extremities, weakness in extremities, lack of coordination, difficulty walking, frequent falls, dizziness, Slurred speech present or seizure-like activity PFSH ED PFSH: Medical History Pseudomyxoma peritonei History of resection Hx of nephrolithotomy with removal of calculi History of pacemaker Essential hypertension Surgical History S/P laparotomy Omental resection for pseudomyxoma peritonei History of back surgery History of hernia repair History of cervical sympathectomy History of coronary artery bypass graft x 3 History of open heart surgery Social History Smoking and tobacco/nicotine status: never used tobacco/nicotine Alcohol intake: never Substance/Drug Use: never Adopted: No Caregiver/support person: No Lives independently: No Household members: spouse Marital status: Sexually active: Yes Do you think of yourself as: Straight/Heterosexual Current gender identity: Male Physical Exam Const: COMMON NORMALS: no acute distress, patient oriented x3 and no limitations GENERAL APPEARANCE: cooperative, comfortable and well developed ORIENTATION/CONSCIOUSNESS: Yes awake, Yes oriented to person, Yes oriented to place and Yes oriented to time HENMT: COMMON NORMALS: normocephalic, atraumatic and hearing grossly normal bilaterally HEAD & SCALP: normocephalic and atraumatic Eye: COMMON NORMALS: Equal, round and reactive pupils present, EOMs intact bilaterally and conjunctivae normal CONJUNCTIVA: Yes conjunctivae normal PUPIL: Yes Equal, round and reactive pupils present Neck/C-Spine: COMMON NORMALS: full ROM, supple and no JVD Resp: COMMON NORMALS: normal respiratory effort, No retractions, No use of accessory muscles and clear to auscultation bilaterally AUSCULTATION: clear to auscultation bilaterally Cardio: COMMON NORMALS: no JVD, regular rate, regular rhythm, No clicks present (Cardio), No murmurs present (Cardio) and No rub (Cardio) RATE: regular rate RHYTHM: regular rhythm GI: COMMON NORMALS: Normal to inspection, nondistended, normoactive bowel sounds present, Soft to palpation and non-tender AUSCULTATION: Yes n ormoactive bowel sounds PALPATION: Yes Soft to palpation RECTAL EXAM: Yes deferred : COMMON NORMALS: Yes no CVA tenderness BLADDER/KIDNEY EXAM: Yes no CVA tenderness Back/Pelvis: COMMON NORMALS: no CVA tenderness, thoracic and lumbar spine normal to inspection, no thoracic nor lumbar tenderness and thoraco-lumbar ROM normal Extremity: COMMON NORMALS: full ROM and capillary refill normal NARRATIVE EXTREMITY EXAM: Swelling noted to patient's right forearm and right elbow, limited range of motion at the wrist and elbow. Tender to palpation along the entirety of the right forearm. No obvious dinner fork deformity or other deformities. Distal sensations are intact, able to make a fist, though with pain. Radial pulse palpable. Neuro: COMMON NORMALS: patient oriented x3, CN's II-XII intact bilaterally, moves all extremities, no focal motor deficits and no sensory deficits noted SENSORIUM/ORIENTATION: Yes oriented to person, Yes oriented to place and Yes oriented to time Psych: COMMON NORMALS: mental status grossly normal and Normal thought process present THOUGHT PROCESS: Normal thought process present Skin: NARRATIVE SKIN EXAM: Scattered abrasions noted to the right distal forearm and hand, evidence of scabbing and various stages of healing. Some bruising noted near the right elbow. Course Vital Signs: Vital signs: Vital Signs Temperature 97.5 F L 01/14/25 17:00 Pulse Rate 61 01/14/25 18:51 Respiratory Rate 18 01/14/25 17:00 Blood Pressure 146/83 01/14/25 18:51 Pulse Oximetry 98 01/14/25 18:51 Oxygen Delivery Me thod Room Air 01/14/25 18:51 MDM - Fall Medical Decision Making This patient presented 4 days status post fall at home. Primary complaint was pain to right upper extremity with limited range of motion, on exam there was some swelling noted to the right forearm and elbow. There were scattered abrasions as well and very stages of healing. Neurovascular status was intact, there is no obvious deformity. X-ray of the entire right upper arm did not reveal any occult fracture. Head and neck CT was negative. I suspect a contusion of the right forearm, ruled out intracranial hemorrhage or calvarial fracture and there was no abnormalities on exam with neurological functioning or mentation. I told the patient to follow-up with his regular doctor later this week, specifically if he is still continue to have pain despite conservative therapy as repeat imaging should be obtained at that time to evaluate for any small fractures that was not evident on imaging today. Also family the room was concerned of some of the abrasions appearing infected, they do not appear overtly infected but will prophylactically treat with cephalexin and I did discuss proper wound care. Return precautions given, verbalized understanding. Lab Data Radiology Impressions Elbow X-Ray 01/14/25 17:10 IMPRESSION: No definite acute osseous findings. CT could be considered further evaluation if there is concern for occult fracture. Hand X-Ray 01/14/25 17:10 IMPRESSION: No acute osseous findings. Shoulder X-Ray 01/14/25 17:10 IMPRESSION: 1. No acute osseous findings. 2. Moderate to advanced degenerative changes of the shoulder as above. Wrist X-Ray 01/14/25 17:10 IMPRESSION: No acute findings. Cervical Spine CT 01/14/25 17:11 IMPRESSION: No acute findings. Head CT 01/14/25 17:11 IMPRESSION: 1. No acute intracranial abnormality. 2. Chronic/age-related changes as above are similar to prior. All radiology interpretation(s) finalized by discharge Discharge Plan Discharge Patient Disposition: Home Clinical Impression: Fall, Contusion of forearm, right, Abrasion of skin, Contusion of elbow, right, Closed head injury Condition: Stable Prescriptions: New cephalexin 500 mg capsule 500 mg PO BID 5 Days Qty: 10 0RF No Action amiodarone 200 mg tablet 200 mg PO DAILY 90 Days Qty: 90 0RF lisinopril 2.5 mg tablet 2.5 mg PO DAILY 90 Days Qty: 90 0RF metoprolol succinate 50 mg tablet extended release 24 hr 50 mg PO DAILY 90 Days Qty: 90 0RF nitroglycerin 0.4 mg tablet, sublingual 0.4 mg sublingual Q5M PRN (Reason: chest pain) Qty: 20 0RF Rx Instructions: do not exceed 3 doses per episode potassium chloride 20 mEq tablet,ER particles/crystals See Rx Instructions .ROUTE .COMPLEX Qty: 90 0RF Dose Instruction: TAKE 1 TABLET BY MOUTH DAILY Rx Instructions: TAKE 1 TABLET BY MOUTH DAILY furosemide 20 mg tablet See Rx Instructions .ROUTE .COMPLEX 90 Days Qty: 90 0RF Dose Instruction: TAKE 1 TABLET BY MOUTH DAILY Rx Instructions: TAKE 1 TABLET BY MOUTH DAILY pantoprazole 20 mg tablet,delayed release (DR/EC) 20 mg PO DAILY 30 Days Qty: 30 0RF Discharge Orders: Discharge ED (Routine); Ordered 01/14/25 Ordered By: Avelino Patiño Referrals: [facility], [facility] [employer] [Primary Care Provider] - Patient Instructions: Contusion in Adults (ED), Abrasion (ED), Skin Tear (ED) Activity Restrictions/Additional Instructions: Please take the antibiotics as prescribed. Continue alternating ibuprofen and Tylenol for pain. Keep the extremity wrapped with compression as needed, elevation and ice. Please note that if your pain is persistent or worsens, to follow-up with your regular doctor for repeat imaging. With any other concerns return to the ED as we discussed. Please see the attached patient instructions for any further education. Print Language: Angolan Coding Level of Care Code ED Lift Slab Operator for Keyona Tamez
[2025-01-14] MEDS: naproxen 500 mg Tablet PO (17:37)
[2025-01-14 18:51] VITALS: BP 146/83; PULSE 61; O2SAT 98
== END 2025-01-14 19:10 | disposition home or self-care (01) ==
PROVIDERS: Emergency Provider Physician Assistant; PCP Registered Nurse
DX: S50.11XA Contusion of right forearm, initial encounter (principal); S50.01XA Contusion of right elbow, initial encounter; S09.8XXA Other specified injuries of head, initial encounter; S40.811A Abrasion of right upper arm, initial encounter; W19.XXXA Unspecified fall, initial encounter; Z95.0 Presence of cardiac pacemaker; I10 Essential (primary) hypertension
CPT/HCPCS: 70450; 72125; 73030; 73080; 73110; 73130; 99284; J9999

== ENCOUNTER → 2025-01-17 12:46 | Outpatient (BNVA) | payer MEDICARE, SELFPAY | PROVIDERS: PCP Registered Nurse; Visit Provider Internal Medicine | DX: I11.0 Hypertensive heart disease with heart failure (principal); I50.9 Heart failure, unspecified; Z95.0 Presence of cardiac pacemaker; I44.7 Left bundle-branch block, unspecified; Z95.5 Presence of coronary angioplasty implant and graft | CPT/HCPCS: 99213 ==

== ENCOUNTER 2025-05-02 12:06 | Outpatient (CLI) | payer MEDICARE, SELFPAY ==
[2025-05-02 13:29] LABS: Alanine Aminotransferase 17 U/L (0-41); Albumin Level 3.8 g/dL (3.5-5.2); Alkaline Phosphatase 115 U/L (40-130); Anion Gap 14.6 (5-19); Aspartate Amino Transferase 22 U/L (0-40); Blood Urea Nitrogen 17 mg/dL (8-23); Calcium 9.3 mg/dL (8.5-10.5); Carbon Dioxide 27 mmol/L (22-29); Chloride 105 mmol/L (98-107); Globulin 2.8 g/dL (1.3-4.6); Glucose 98 mg/dL (65-115); Osmolality Calculated 296 mOsm/kg (285-295); Potassium 4.6 mmol/L (3.5-5.1); Sodium 142 mmol/L (136-145); Total Protein 6.6 g/dL (6.6-8.7)
== END 2025-05-02 12:07 | disposition home or self-care (01) ==
LOC: LAB 12:07
PROVIDERS: PCP Registered Nurse; Visit Provider Nurse Practitioner Family
DX: I11.0 Hypertensive heart disease with heart failure (principal); I50.22 Chronic systolic (congestive) heart failure; I44.7 Left bundle-branch block, unspecified; Z95.0 Presence of cardiac pacemaker; Z95.1 Presence of aortocoronary bypass graft; I10 Essential (primary) hypertension
CPT/HCPCS: 36415; 80053; 99214

== ENCOUNTER 2025-06-04 09:01 | Outpatient (CLI) | payer MEDICARE, SELFPAY ==
--- NOTE | 2025-06-04 09:15 | USCV_ITS ---
Dar Ortega Age: 80 Gender: M : 1945 Exam Date: 06/04/2025 09:33 Ordering Phys: Trish Nugent NP Technologist: MAL Exam Location: [facility] [place] Indication: SHF BP: 160 / 86 HR: 61 Rhythm: Sinus Technical Quality: Adequate MEASUREMENTS (Male / Female) Normal Values 2D ECHO LV Diastolic Diameter PLAX 5.7 cm 4.2 - 5.9 / 3.9 - 5.3 cm IVS Diastolic Thickness 1.1 cm 0.6 - 1.0 / 0.6 - 0.9 cm IVS Systolic Thickness 1.9 cm LVPW Diastolic Thickness 1.5 cm 0.6 - 1.0 / 0.6 - 0.9 cm LVPW Systolic Thickness 1.8 cm LVOT Diameter 2.1 cm LV Ejection Fraction 2D Teich 52.5 % LV Ejection Fraction MOD 4C 51.6 % LV Ejection Fraction MOD 2C 58.6 % LV Ejection Fraction 2C AL 60.1 % LA Diameter 3.6 cm RA Systolic Volume 4C AL 89.2 ml RA Systolic Volume 4C MOD 87.2 ml LA Sys Volume AL 66.6 cm cubed LA Sys Volume Index AL 33.4 cm cubed/m squared Aorta at Sinotubular Diameter 3.1 cm IVC Diameter 2.0 cm M-MODE LA Ao Ratio MM 1.2 AV Cusp Separation MM 1.3 cm DOPPLER AV Peak Velocity 284.0 cm/s LVOT Peak Velocity 97.0 cm/s AV Area Cont Eq vti 1.1 cm squared AV Area Cont Eq pk 1.1 cm squared MV Peak Velocity 111.0 cm/s MV Area PHT 2.8 cm squared Mitral E to A Ratio 2.6 TR Peak Velocity 180.0 cm/s TR Peak Gradient 13.0 mmHg TV Peak E Velocity 83.0 cm/s PV Peak Velocity 139.0 cm/s FINDINGS Left Ventricle Normal left ventricular size, systolic function and wall thickness, with no regional wall motion abnormalities. Left ventricular ejection fraction is estimated at 55 %. Grade II/IV diastolic dysfunction, moderately elevated filling pressures. Right Ventricle Catheter/pacemaker wire visualized in the right ventricle. Right Atrium Catheter/pacemaker wire in the right atrial cavity. Moderately increased right atrial size. Left Atrium Moderately increased left atrial size. Mitral Valve Mildly thickened mitral valve. No mitral valve stenosis. Mild mitral valve regurgitation. Aortic Valve Moderate aortic valve calcification. Moderate aortic valve stenosis, mean gradient 16.8 mmHg, AMANDA 1.1 cm squared. Mild aortic valve regurgitation. Tricuspid Valve Structurally normal tricuspid valve without significant stenosis or regurgitation. Pulmonary artery systolic pressure is normal. Pulmonic Valve Structurally normal pulmonic valve without significant stenosis. There is no pulmonic regurgitation. Pericardium Normal pericardium without effusion. Aorta Normal ascending aorta dimension. IVC The inferior vena cava appears normal. CONCLUSIONS Normal left ventricular size, systolic function and wall thickness, with no regional wall motion abnormalities. Left ventricular ejection fraction is estimated at 55 %. Grade II/IV diastolic dysfunction, moderately elevated filling pressures. Catheter/pacemaker wire in the right atrial cavity. Moderately increased right atrial size. Catheter/pacemaker wire visualized in the right ventricle. Mildly thickened mitral valve. No mitral valve stenosis. Mild mitral valve regurgitation. Moderate aortic valve calcification. Moderate aortic valve stenosis, mean gradient 16.8 mmHg, AMANDA 1.1 cm squared. Mild aortic valve regurgitation. There is no pericardial effusion. Right atrial pressure is around 5 mm of mercury. Piter Bingham MD (Electronically Signed) Final Date: 11 June 2025 11:32 S
== END 2025-06-04 09:02 | disposition home or self-care (01) ==
LOC: RAD 09:02
PROVIDERS: PCP Registered Nurse; Visit Provider Nurse Practitioner Family
DX: I50.42 Chronic combined systolic (congestive) and diastolic (congestive) heart failure (principal); R93.1 Abnormal findings on diagnostic imaging of heart and coronary circulation; Z95.0 Presence of cardiac pacemaker; I51.7 Cardiomegaly; I34.0 Nonrheumatic mitral (valve) insufficiency; I35.8 Other nonrheumatic aortic valve disorders; I35.0 Nonrheumatic aortic (valve) stenosis; I35.1 Nonrheumatic aortic (valve) insufficiency
CPT/HCPCS: 93306